=== PATIENT | male | born 1970 | race African-American/Black ===

== ENCOUNTER 2016-11-27 10:49 | Inpatient (IN) | payer OTHER ==
[2016-11-27 12:54] VITALS: BMI 31.4
--- NOTE | 2016-11-27 16:09 | HP ---
CIWA Score - CIWA Score Nausea/Vomitin-No Nausea/No Vomiting Muscle Tremors: 4-Moderate,w/Arms Extend Anxiety: 3 Agitation: 4-Moderately Restless Paroxysmal Sweats: 3 Orientation: 0-Oriented Tacttile Disturbances: 0-None Auditory Disturbances: 0-None Visual Disturbances: 0-None Headache: 0-None Present CIWA-Ar Total Score: 14 Admission ROS BHS - HPI Chief Complaint: I want to detox from alcohol. Allergies/Adverse Reactions: Allergies Allergy/AdvReac Type Severity Reaction Status Date / Time haloperidol [From Haldol] AdvReac Severe Verified 11/27/16 15:48 haloperidol lactate AdvReac Severe Verified 11/27/16 15:48 [From Haldol] History of Present Illness: pt is a 46yr old male with a history of alcohol dependence seeking detox for treatment. Exam Limitations: No Limitations - Ebola screening Have you traveled outside of the country in the last 21 days: No Have you had contact with anyone from an Ebola affected area: No Have you been sick,other than usual withdrawal symptoms: No Do you have a fever: No - Review of Systems Constitutional: Changes in sleep EENT: reports: No Symptoms Reported Respiratory: reports: No Symptoms reported Cardiac: reports: Syncope GI: reports: Diarrhea, Poor Fluid Intake, Indigestion : reports: No Symptoms Reported Musculoskeletal: reports: No Symptoms Reported Integumentary: reports: Flushing, Sweating Neuro: reports: Tingling, Tremors Endocrine: reports: Excessive Sweating, Flushing, Intolerance to Cold, Intolerance to Heat Hematology: reports: No Symptoms Reported Psychiatric: reports: Judgement Intact, Mood/Affect Appropiate, Orientated x3, Agitated, Anxious Other Systems: Reviewed and Negative Patient History - Patient Medical History Hx Anemia: No Hx Asthma: No Hx Chronic Obstructive Pulmonary Disease (COPD): No Hx Cancer: No Hx Cardiac Disorders: No Hx Congestive Heart Failure: No Hx Hypertension: No Hx Hypercholesterolemia: No Hx Pacemaker: No HX Cerebrovascular Accident: No Hx Seizures: No Hx Dementia: No Hx Diabetes: No Hx Gastrointestinal Disorders: No Hx Liver Disease: No Hx Genitourinary Disorders: No Hx Sexually Transmitted Disorders: No Hx Renal Disease (ESRD): No Hx Thyroid Disease: No Hx Human Immunodeficiency Virus (HIV): No (negative) Hx Hepatitis C: No (negative) Hx Depression: Yes Hx Suicide Attempt: Yes (Tried to cut wrist in 1994/ denies any S/H ideation today) Hx Bipolar Disorder: Yes (GEODON/WELLBUTRIM) Hx Schizophrenia: No - Patient Surgical History Past Surgical History: Yes Hx Neurologic Surgery: No Hx Cataract Extraction: No Hx Cardiac Surgery: No Hx Lung Surgery: No Hx Abdominal Surgery: Yes (UMBILICAL HERNIA REPAIR AN INFANT) Hx Appendectomy: No Hx Cholecystectomy: No Hx Genitourinary Surgery: No Hx Orthopedic Surgery: No Anesthesia Reaction: No - PPD History Previous Implant?: Yes Documented Results: Positive w/o proof Implanted On Prior [facility] Admission?: No Results: CXR COPY PPD to be Administered?: No - Reproductive History Patient is a Female of Child Bearing Age (11 -55 yrs old): No - Smoking Cessation Smoking history: Never smoked Have you smoked in the past 12 months: No Hx Chewing Tobacco Use: No Initiated information on smoking cessation: No 'Breaking Loose' booklet given: 11/27/16 - Substance & Tx. History Hx Alcohol Use: Yes Hx Substance Use: Yes Substance Use Type: Alcohol, Cocaine Hx Substance Use Treatment: Yes - Substances Abused Alcohol Route: Oral Frequency: Daily Amount used: fifth rum/ 2 40 oz beers Age of first use: 3 Date of Last Use: 11/26/16 Crack Route: Smoking Frequency: 1-3 times last 30 days Amount used: $300 Age of first use: 13 Date of Last Use: 11/26/16 Family Disease History - Family Disease History Family Disease History: Other: Mother, Sister Admission Physical Exam BHS - Vital Signs Vital Signs: Vital Signs - 24 hr 11/27/16 12:53 Temperature 96.2 F L Pulse Rate 105 H Respiratory 20 Rate Blood Pressure 123/70 - Physical General Appearance: Yes: Appropriately Dressed, Moderate Distress, Tremorous, Irritable, Sweating, Anxious HEENTM: Yes: Hearing grossly Normal, Normal Voice Respiratory: Yes: Lungs Clear, Normal Breath Sounds, No Respiratory Distress Neck: Yes: Within Normal Limits Breast: Yes: Within Normal Limits Cardiology: Yes: Regular Rhythm, Regular Rate, S1, S2 Abdominal: Yes: Normal Bowel Sounds, Non Tender, Soft Genitourinary: Yes: Within Normal Limits Back: Yes: Normal Inspection Musculoskeletal: Yes: full range of Motion, Pelvis Stable Extremities: Yes: Normal Capillary Refill, Normal Inspection, Tremors Neurological: Yes: Fully Oriented, Alert, Normal Response Integumentary: Yes: Normal Color, Diaphoresis Lymphatic: Yes: Within Normal Limits - Diagnostic (1) Alcohol dependence with uncomplicated withdrawal Current Visit: Yes Status: Chronic (2) Cannabis dependence, uncomplicated Current Visit: Yes Status: Chronic (3) Cocaine abuse Current Visit: Yes Status: Chronic (4) GERD (gastroesophageal reflux disease) Current Visit: Yes Status: Chronic Qualifiers: Esophagitis presence: without esophagitis Qualified Code(s): K21.9 - Gastro-esophageal reflux disease without esophagitis Cleared for Admission [facility] - Detox or Rehab [facility] Level of Care: Medically Managed Detox Regimen/Protocol: Librium [facility] Breath Alcohol Content Breath Alcohol Content: 0 Urine Drug Screen - Results Drug Screen Negative: No Urine Drug Screen Results: SHAYY-Cocaine
[2016-11-27] MEDS ORDERED: MENTHOL/PHENOL 1 EACH UD MM PRN (16:32)
[2016-11-27] MEDS ORDERED: diphenhydrAMINE HCL 50 MG CAPSULE PO PRN (16:32)
[2016-11-27] MEDS ORDERED: IBUPROFEN 400 MG TABLET (FP) PO PRN (16:32)
[2016-11-27] MEDS ORDERED: MAGNESIUM HYDROX 2400MG/30ML ORAL SUSPENSION 30 ML CUP PO PRN (16:32)
[2016-11-27] MEDS ORDERED: MAGNESIUM CITRATE 300 ML BOTTLE PO PRN (16:32)
[2016-11-27] MEDS ORDERED: MAG HYDROX/AL HYDROX/SIMETH 30 ML UNIT-DOSE CUP PO PRN (16:32)
[2016-11-27] MEDS ORDERED: guaiFENesin/D-METHORPHAN HB 10 ML UNIT-DOSE CUPS PO PRN (16:32)
[2016-11-27] MEDS ORDERED: chlordiazePOXIDE HCL 25 MG CAPSULE PO PRN (16:32)
[2016-11-27] MEDS ORDERED: LOPERAMIDE HCL 2 MG CAPSULE PO PRN (16:32)
[2016-11-27] MEDS ORDERED: P-EPHED 60MG/TRIPROLIDI 2.5MG TABLET PO PRN (16:32)
[2016-11-27] MEDS ORDERED: ACETAMINOPHEN 325 MG TABLET (FP) PO PRN (16:32)
[2016-11-27] MEDS ORDERED: chlordiazePOXIDE HCL 25 MG CAPSULE PO SCH (17:00)
[2016-11-27] MEDS ORDERED: chlordiazePOXIDE HCL 25 MG CAPSULE PO ONE (18:15)
[2016-11-27] MEDS: THIAMINE HCL 100 MG TABLET (FP) PO SCH (22:02)
[2016-11-27] MEDS: chlordiazePOXIDE HCL 25 MG CAPSULE PO SCH (22:03)
[2016-11-28 01:54] LABS: URINE APPEARANCE CLEAR; URINE BILIRUBIN NEGATIVE (NEGATIVE); URINE BLOOD NEGATIVE (NEGATIVE); URINE COLOR YELLOW; URINE GLUCOSE (UA) NEGATIVE (NEGATIVE); URINE KETONE TRACE (NEGATIVE); URINE LEUK ESTERASE NEGATIVE (NEGATIVE); URINE NITRITE NEGATIVE (NEGATIVE); URINE PROTEIN NEGATIVE (NEGATIVE); URINE UROBILINOGEN NEGATIVE E.U./dl (0.2-1.0)
[2016-11-28] MEDS: chlordiazePOXIDE HCL 25 MG CAPSULE PO SCH ×4 (05:54→22:15)
[2016-11-28] MEDS: PRENATAL VITAMINS W/ FOLIC ACID TABLET (FP) PO SCH (10:11)
[2016-11-28 10:45] LABS: MCH 28.1 pg (25.7-33.7); MCHC 33.7 g/dl (32.0-35.9); MEAN CELL VOLUME 83.3 fl (80-96); MEAN PLT VOLUME 8.3 fl (7.5-11.1); PLATELET COUNT 265 K/MM3 (134-434); RDW 12.5 % (11.9-15.9); WHITE BLOOD COUNT 6.8 K/mm3 (4.0-10.0)
[2016-11-28 11:23] LABS: BILIRUBIN,TOTAL 0.6 mg/dL (0.2-1.0); CALCIUM 9.2 mg/dL (8.5-10.1); COCKROFT - GAULT 76.16; CREATININE 1.5 mg/dL (0.7-1.3); TOT PROT 7.4 g/dl (6.4-8.2)
--- NOTE | 2016-11-28 12:22 | PN ---
S CIWA - CIWA Score Nausea/Vomitin Muscle Tremors: 2 Anxiety: 2 Agitation: 2 Paroxysmal Sweats: 2 Orientation: 0-Oriented Tacttile Disturbances: 1-Very Mild Itch/Numbness Auditory Disturbances: 0-None Visual Disturbances: 1-Very Mild Sensitivity Headache: 2-Mild CIWA-Ar Total Score: 14 S Progress Note (SOAP) Subjective: shakes, sewats, interrupted sleep, abdominal discomfort Objective: 11/28/16 12:21 Vital Signs - 8 hr 11/28/16 11/28/16 06:27 10:23 Temperature 97.4 F L 98.2 F Pulse Rate 96 H 107 H Respiratory 18 20 Rate Blood Pressure 120/82 124/79 Laboratory Last Values WBC 6.8 K/mm3 (4.0-10.0) 11/28/16 06:00 RBC 5.58 M/mm3 (4.00-5.60) 11/28/16 06:00 Hgb 15.7 GM/dL (11.7-16.9) 11/28/16 06:00 Hct 46.5 % (35.4-49) 11/28/16 06:00 MCV 83.3 fl (80-96) 11/28/16 06:00 MCHC 33.7 g/dl (32.0-35.9) 11/28/16 06:00 RDW 12.5 % (11.9-15.9) D 11/28/16 06:00 Plt Count 265 K/MM3 (134-434) 11/28/16 06:00 MPV 8.3 fl (7.5-11.1) 11/28/16 06:00 Sodium 139 mmol/L (136-145) 11/28/16 06:00 Potassium 4.1 mmol/L (3.5-5.1) 11/28/16 06:00 Chloride 103 mmol/L (98-107) 11/28/16 06:00 Carbon Dioxide 27 mmol/L (21-32) 11/28/16 06:00 Anion Gap 9 (8-16) 11/28/16 06:00 BUN 22 mg/dL (7-18) H D 11/28/16 06:00 Creatinine 1.5 mg/dL (0.7-1.3) H 11/28/16 06:00 Creat Clearance w eGFR 50.16 (>60) 11/28/16 06:00 Random Glucose 140 mg/dL (74-106) H D 11/28/16 06:00 Calcium 9.2 mg/dL (8.5-10.1) 11/28/16 06:00 Total Bilirubin 0.6 mg/dL (0.2-1.0) 11/28/16 06:00 AST 28 U/L (15-37) D 11/28/16 06:00 ALT 30 U/L (12-78) 11/28/16 06:00 Alkaline Phosphatase 66 U/L (45-117) 11/28/16 06:00 Total Protein 7.4 g/dl (6.4-8.2) 11/28/16 06:00 Albumin 4.0 g/dl (3.4-5.0) 11/28/16 06:00 Urine Color Yellow 11/27/16 00:35 Urine Appearance Clear 11/27/16 00:35 Urine pH 5.0 (5.0-8.0) 11/27/16 00:35 Urine Protein Negative (NEGATIVE) 11/27/16 00:35 Urine Glucose (UA) Negative (NEGATIVE) 11/27/16 00:35 Urine Ketones Trace (NEGATIVE) H 11/27/16 00:35 Urine Blood Negative (NEGATIVE) 11/27/16 00:35 Urine Nitrite Negative (NEGATIVE) 11/27/16 00:35 Urine Bilirubin Negative (NEGATIVE) 11/27/16 00:35 Urine Urobilinogen Negative E.U./dl (0.2-1.0) 11/27/16 00:35 Ur Leukocyte Esterase Negative (NEGATIVE) 11/27/16 00:35 labs noted Assessment: 11/28/16 12:21 withdrawal sx Plan: continue detox
--- NOTE | 2016-11-28 13:56 | CONSULT ---
[facility] Psychiatric Consult - Data Date of interview: 11/28/16 Admission source: [facility] Identifying data: First admission to [facility] for this 46 y/o AA male seeking detox treatment for alcohol and cocaine (crack) dependence.Patient is single without children,domiciled (lives with friends since his relocation from [place] in May 2016),unemployed and supported on [facility] benefits. Substance Abuse History: - Smoking Cessation. Smoking history: Never smoked. Have you smoked in the past 12 months: No. Hx Chewing Tobacco Use: No. Initiated information on smoking cessation: No. 'Breaking Loose' booklet given : 11/27/16. - Substance & Tx. History. Hx Alcohol Use: Yes. Hx Substance Use : Yes. Substance Use Type: Alcohol, Cocaine. Hx Substance Use Treatment: Yes. - Substances Abused. Alcohol. Route: Oral. Frequency: Daily. Amount used: fifth rum/ 2 40 oz beers. Age of first use: 3. Date of Last Use: . Crack. Route: Smoking. Frequency: 1-3 times last 30 days. Amount used : $300. Age of first use: 13. Date of Last Use: 11/26/16. Confirmed by patient. Medical History: Patient endorses good general health. Psychiatric History: Patient admits to a history of 3-5 psychiatric hospitalizations.He is known to [facility].Diagnosed with Bipolar Disoder and MDD.Mr Hollis reports that he does not have a " regular psychiatrist of psychiatric clinic in [place] ". Since his [facility] May [facility],he has utilized detox/rehab units as resources for medications and scripts at discharge.The patient is prescribed geodon 40 mg/hs + wellbutrin XL 150 mg/day + vistaril 50 mg tid prn.He has an intake appointment at [facility] on 12/03/16.Patient endorses a history of suicide attempt via wrist- cutting (1994). Physical/Sexual Abuse/Trauma History: Patient denies. Additional Comment: Urine Drug Screen Results: SHAYY-Cocaine.Noted. Mental Status Exam - Mental Status Exam Alert and Oriented to: Time, Place, Person Cognitive Function: Good Patient Appearance: Well Groomed Mood: Nervous, Withdrawn Affect: Mood Congruent Patient Behavior: Fatigued, Appropriate, Cooperative Speech Pattern: Clear Voice Loudness: Normal Thought Process: Goal Oriented Thought Disorder: Not Present Hallucinations: Denies Suicidal Ideation: Denies Homicidal Ideation: Denies Insight/Judgement: Fair Sleep: Poorly, Difficulty falling asleep Appetite: Good Muscle strength/Tone: Normal Gait/Station: Normal Psychiatric Findings - Problem List (Powers 1, 2,3) (1) Alcohol dependence with uncomplicated withdrawal Current Visit: Yes Status: Acute (2) Cocaine dependence Current Visit: Yes Status: Acute (3) Substance induced mood disorder Current Visit: Yes Status: Acute (4) Schizoaffective disorder Current Visit: Yes Status: Chronic (5) GERD (gastroesophageal reflux disease) Current Visit: Yes Status: Chronic Qualifiers: Esophagitis presence: without esophagitis Qualified Code(s): K21.9 - Gastro-esophageal reflux disease without esophagitis - Initial Treatment Plan Initial Treatment Plan: Psychoeducation.Detoxification.Medications : wellbutrin XXL 150 mg po daily + geodon 40 mg po hs.Side effects/benefits are discussed with the patient.He is in agreement with this careplan.Observation.
[2016-11-28] MEDS: ZIPRASIDONE 40 MG CAPSULE (FP) PO SCH (20:30)
[2016-11-28] MEDS: THIAMINE HCL 100 MG TABLET (FP) PO SCH (22:15)
[2016-11-28] MEDS: hydrOXYzine PAMOATE 50 MG CAPSULE (FP) PO PRN (22:18)
[2016-11-29] MEDS: chlordiazePOXIDE HCL 25 MG CAPSULE PO SCH ×3 (06:03→17:51)
[2016-11-29] MEDS: PRENATAL VITAMINS W/ FOLIC ACID TABLET (FP) PO SCH (10:11)
--- NOTE | 2016-11-29 14:59 | PN ---
S CIWA - CIWA Score Nausea/Vomitin Muscle Tremors: 4-Moderate,w/Arms Extend Anxiety: 4-Mod. Anxious/Guarded Agitation: 4-Moderately Restless Paroxysmal Sweats: No Perspiration Orientation: 0-Oriented Tacttile Disturbances: 1-Very Mild Itch/Numbness Auditory Disturbances: 0-None Visual Disturbances: 0-None Headache: 2-Mild CIWA-Ar Total Score: 18 BHS Progress Note (SOAP) Subjective: Anxious, irritable, interrupted sleep, sweating, tremor Objective: 11/29/16 14:55 Last Vital Signs Temp Pulse Resp BP Pulse Ox 98.5 F 101 H 20 112/81 11/29/16 13:47 11/29/16 13:47 11/29/16 13:47 11/29/16 13:47 Laboratory Tests 11/27/16 11/28/16 11/28/16 00:35 06:00 06:00 WBC 6.8 RBC 5.58 Hgb 15.7 Hct 46.5 MCV 83.3 MCHC 33.7 RDW 12.5 D Plt Count 265 MPV 8.3 Sodium 139 Potassium 4.1 Chloride 103 Carbon Dioxide 27 Anion Gap 9 BUN 22 H D Creatinine 1.5 H Creat Clearance w eGFR 50.16 Random Glucose 140 H D Calcium 9.2 Total Bilirubin 0.6 AST 28 D ALT 30 Alkaline Phosphatase 66 Total Protein 7.4 Albumin 4.0 Urine Color Yellow Urine Appearance Clear Urine pH 5.0 Ur Specific [place] 1.020 Urine Protein Negative Urine Glucose (UA) Negative Urine Ketones Trace H Urine Blood Negative Urine Nitrite Negative Urine Bilirubin Negative Urine Urobilinogen Negative Ur Leukocyte Esterase Negative RPR Titer 11/28/16 06:00 WBC RBC Hgb Hct MCV MCHC RDW Plt Count MPV Sodium Potassium Chloride Carbon Dioxide Anion Gap BUN Creatinine Creat Clearance w eGFR Random Glucose Calcium Total Bilirubin AST ALT Alkaline Phosphatase Total Protein Albumin Urine Color Urine Appearance Urine pH Ur Specific [place] Urine Protein Urine Glucose (UA) Urine Ketones Urine Blood Urine Nitrite Urine Bilirubin Urine Urobilinogen Ur Leukocyte Esterase RPR Titer Nonreactive Labs noted: serum creatinine 1.5, bun 22, GFR 50.16, serum glucose 140 Assessment: 11/29/16 14:57 Withdrawal symptoms Noted with Pre renal azotemia and hyperglycemia Plan: Continue detox Pre renal azotemia: encouraged to drink lots of water, repeat BMP in AM, water pitcher provided Hyperglycemia: fasting glucose in AM, send HbA1c
[2016-11-29] MEDS: ZIPRASIDONE 40 MG CAPSULE (FP) PO SCH (20:00)
[2016-11-29] MEDS: chlordiazePOXIDE 5 MG CAPSULE PO SCH (22:14)
[2016-11-29] MEDS: THIAMINE HCL 100 MG TABLET (FP) PO SCH (22:15)
[2016-11-29] MEDS: hydrOXYzine PAMOATE 50 MG CAPSULE (FP) PO PRN (22:18)
[2016-11-30] MEDS: chlordiazePOXIDE 5 MG CAPSULE PO SCH ×3 (05:18→17:23)
[2016-11-30] MEDS: PRENATAL VITAMINS W/ FOLIC ACID TABLET (FP) PO SCH (10:08)
--- NOTE | 2016-11-30 11:39 | EKG ---
Test Reason : Blood Pressure : / mmHG Vent. Rate : 087 BPM Atrial Rate : 087 BPM P-R Int : 140 ms QRS Dur : 086 ms QT Int : 388 ms P-R-T Axes : 073 077 057 degrees QTc Int : 466 ms NORMAL SINUS RHYTHM NORMAL ECG NO PREVIOUS ECGS AVAILABLE Confirmed by MARQUISE RANGEL MD ([id number]) on 11/30/2016 11:39:09 AM Referred By: Confirmed By:MARQUISE RANGEL MD
--- NOTE | 2016-11-30 14:03 | PN ---
S Progress Note (SOAP) Subjective: Interrupted sleep, anxious, sweating Objective: 11/30/16 13:59 Last Vital Signs Temp Pulse Resp BP Pulse Ox 97.2 F L 93 H 20 126/86 11/30/16 13:29 11/30/16 13:29 11/30/16 13:29 11/30/16 13:29 Laboratory Tests 11/27/16 11/28/16 11/28/16 00:35 06:00 06:00 WBC 6.8 RBC 5.58 Hgb 15.7 Hct 46.5 MCV 83.3 MCHC 33.7 RDW 12.5 D Plt Count 265 MPV 8.3 Sodium 139 Potassium 4.1 Chloride 103 Carbon Dioxide 27 Anion Gap 9 BUN 22 H D Creatinine 1.5 H Creat Clearance w eGFR 50.16 Random Glucose 140 H D Calcium 9.2 Total Bilirubin 0.6 AST 28 D ALT 30 Alkaline Phosphatase 66 Total Protein 7.4 Albumin 4.0 Urine Color Yellow Urine Appearance Clear Urine pH 5.0 Ur Specific [place] 1.020 Urine Protein Negative Urine Glucose (UA) Negative Urine Ketones Trace H Urine Blood Negative Urine Nitrite Negative Urine Bilirubin Negative Urine Urobilinogen Negative Ur Leukocyte Esterase Negative RPR Titer 11/28/16 06:00 WBC RBC Hgb Hct MCV MCHC RDW Plt Count MPV Sodium Potassium Chloride Carbon Dioxide Anion Gap BUN Creatinine Creat Clearance w eGFR Random Glucose Calcium Total Bilirubin AST ALT Alkaline Phosphatase Total Protein Albumin Urine Color Urine Appearance Urine pH Ur Specific [place] Urine Protein Urine Glucose (UA) Urine Ketones Urine Blood Urine Nitrite Urine Bilirubin Urine Urobilinogen Ur Leukocyte Esterase RPR Titer Nonreactive Labs noted Assessment: 11/30/16 14:00 Withdrawal symptoms Noted with pre renal azotemia and hyperglycemia Plan: Continue detox Prerenal azotemia: encouraged to drink lots of water, follow up on repreated BMP (result in progress) Hyperglycemia: follow up on fasting glucose and on HbA1c result
[2016-11-30 14:29] LABS: COCKROFT - GAULT 103.86; CREATININE 1.1 mg/dL (0.7-1.3)
[2016-11-30] MEDS: ZIPRASIDONE 40 MG CAPSULE (FP) PO SCH (19:42)
[2016-11-30] MEDS: chlordiazePOXIDE HCL 10 MG CAPSULE PO SCH (22:02)
[2016-11-30] MEDS: THIAMINE HCL 100 MG TABLET (FP) PO SCH (22:02)
[2016-12-01] MEDS: chlordiazePOXIDE HCL 10 MG CAPSULE PO SCH ×3 (05:28→17:24)
[2016-12-01] MEDS: PRENATAL VITAMINS W/ FOLIC ACID TABLET (FP) PO SCH (10:07)
--- NOTE | 2016-12-01 10:34 | PN ---
BHS Progress Note (SOAP) Subjective: ANXIETY, INTERMITTENT SLEEP. Objective: 12/01/16 10:33 Laboratory Last Values WBC 6.8 K/mm3 (4.0-10.0) 11/28/16 06:00 RBC 5.58 M/mm3 (4.00-5.60) 11/28/16 06:00 Hgb 15.7 GM/dL (11.7-16.9) 11/28/16 06:00 Hct 46.5 % (35.4-49) 11/28/16 06:00 MCV 83.3 fl (80-96) 11/28/16 06:00 MCHC 33.7 g/dl (32.0-35.9) 11/28/16 06:00 RDW 12.5 % (11.9-15.9) D 11/28/16 06:00 Plt Count 265 K/MM3 (134-434) 11/28/16 06:00 MPV 8.3 fl (7.5-11.1) 11/28/16 06:00 Sodium 144 mmol/L (136-145) 11/30/16 07:12 Potassium 3.9 mmol/L (3.5-5.1) 11/30/16 07:12 Chloride 107 mmol/L (98-107) 11/30/16 07:12 Carbon Dioxide 27 mmol/L (21-32) 11/30/16 07:12 Anion Gap 10 (8-16) 11/30/16 07:12 BUN 12 mg/dL (7-18) D 11/30/16 07:12 Creatinine 1.1 mg/dL (0.7-1.3) D 11/30/16 07:12 Creat Clearance w eGFR 50.16 (>60) 11/28/16 06:00 Random Glucose 100 mg/dL (74-106) D 11/30/16 07:12 Hemoglobin A1c % 5.3 % (4.8-6.0) 11/30/16 07:12 Calcium 9.0 mg/dL (8.5-10.1) 11/30/16 07:12 Total Bilirubin 0.6 mg/dL (0.2-1.0) 11/28/16 06:00 AST 28 U/L (15-37) D 11/28/16 06:00 ALT 30 U/L (12-78) 11/28/16 06:00 Alkaline Phosphatase 66 U/L (45-117) 11/28/16 06:00 Total Protein 7.4 g/dl (6.4-8.2) 11/28/16 06:00 Albumin 4.0 g/dl (3.4-5.0) 11/28/16 06:00 Urine Color Yellow 11/27/16 00:35 Urine Appearance Clear 11/27/16 00:35 Urine pH 5.0 (5.0-8.0) 11/27/16 00:35 Ur Specific [place] 1.020 (1.005-1.025) 11/27/16 00:35 Urine Protein Negative (NEGATIVE) 11/27/16 00:35 Urine Glucose (UA) Negative (NEGATIVE) 11/27/16 00:35 Urine Ketones Trace (NEGATIVE) H 11/27/16 00:35 Urine Blood Negative (NEGATIVE) 11/27/16 00:35 Urine Nitrite Negative (NEGATIVE) 11/27/16 00:35 Urine Bilirubin Negative (NEGATIVE) 11/27/16 00:35 Urine Urobilinogen Negative E.U./dl (0.2-1.0) 11/27/16 00:35 Ur Leukocyte Esterase Negative (NEGATIVE) 11/27/16 00:35 RPR Titer Nonreactive (NONREACTIVE) 11/28/16 06:00 Assessment: 12/01/16 10:34 WITHDRAWAL SX Plan: CONTINUE DETOX
[2016-12-01] MEDS: ZIPRASIDONE 40 MG CAPSULE (FP) PO SCH (20:30)
[2016-12-01] MEDS: THIAMINE HCL 100 MG TABLET (FP) PO SCH (21:46)
[2016-12-02 06:39] VITALS: BP 112/87; PULSE 82; TEMP 97.5
--- NOTE | 2016-12-02 09:15 | DS ---
[facility] Detox Discharge Summary Admission Date: 11/27/16 Discharge Date: 12/02/16 - History Present History: Alcohol Dependence, Cocaine Dependence Additional Comments: PT DISCHARGED EARLIER TODAY. DETOX COMPLETED. Pertinent Past History: GERD S/PUMBILICAL HERNIA REPAIR DEPRESSION - Physical Exam Results Vital Signs: Vital Signs Temperature 97.5 F L 12/02/16 06:39 Pulse Rate 82 12/02/16 06:39 Respiratory Rate 18 12/02/16 06:39 Blood Pressure 112/87 12/02/16 06:39 O2 Sat by Pulse Oximetry (%) Pertinent Admission Physical Exam Findings: WITHDRAWAL SX - Treatment Hospital Course: Detox Protocol Followed, Detoxed Safely, Responded well, Discharged Condition Good - Medication Discharge Medications: Ambulatory Orders Hydroxyzine Pamoate [Vistaril -] 50 mg PO TID PRN 05/14/16 Bupropion HCl [Wellbutrin Xl -] 150 mg PO DAILY #30 tab.sr.24h 06/11/16 Ziprasidone [Geodon] 40 mg PO HS 11/27/16 Bupropion HCl [Wellbutrin Xl -] 150 mg PO DAILY #30 tab.sr.24h 11/28/16 Ziprasidone [Geodon] 40 mg PO HS #30 capsule 11/28/16 - Diagnosis (1) Alcohol dependence with uncomplicated withdrawal Status: Acute (2) GERD (gastroesophageal reflux disease) Status: Chronic Qualifiers: Esophagitis presence: without esophagitis Qualified Code(s): K21.9 - Gastro-esophageal reflux disease without esophagitis (3) Cocaine dependence Status: Acute Qualifiers: Substance use status: uncomplicated Qualified Code(s): F14.20 - Cocaine dependence, uncomplicated (4) Substance induced mood disorder Status: Acute (5) Schizoaffective disorder Status: Chronic - AMA Did Patient Leave Against Medical Advice: No
== END 2016-12-02 09:34 | disposition home or self-care (01) | DRG 897 ==
LOC: YASAS 10:49 → Y3N 17:12
PROVIDERS: ADMIT Internal Medicine; ATTEND Internal Medicine
PROC: HZ2ZZZZ Detoxification Services for Substance Abuse Treatment (ICD-10-PCS; principal; 2016-12-02)
DX: F19.230 Other psychoactive substance dependence with withdrawal, uncomplicated (principal); F14.20 Cocaine dependence, uncomplicated; F19.20 Other psychoactive substance dependence, uncomplicated; F10.230 Alcohol dependence with withdrawal, uncomplicated; F32.9 Major depressive disorder, single episode, unspecified; F25.9 Schizoaffective disorder, unspecified; K21.9 Gastro-esophageal reflux disease without esophagitis
CPT/HCPCS: 36415; 80048; 80053; 81003; 83036; 85027; 86593; 93005; 93010

== ENCOUNTER 2017-10-01 12:08 | Inpatient (IN) | payer OTHER ==
[2017-10-01 12:23] VITALS: BMI 29.8
--- NOTE | 2017-10-01 17:34 | HP ---
Admission [facility] Chief Complaint: I am here for rehab for alcohol and marijuana Allergies/Adverse Reactions: Allergies Allergy/AdvReac Type Severity Reaction Status Date / Time haloperidol [From Haldol] AdvReac Severe Verified 10/01/17 17:43 haloperidol lactate AdvReac Severe stiffness Verified 10/01/17 17:42 [From Haldol] History of Present Illness: Patient is a 47 yo male with hx of alcohol, and THC dependence is here seeking detox. PMHX: Bipolar, anxiety d/o, PTSD. [facility] completed detox today. Longest period of sobriety three years. Denies suicidal / homicidal ideation, reports last attempted suicide by swallowing pills in 1995. - Ebola screening Have you been sick,other than usual withdrawal symptoms: No Do you have a fever: No - Review of Systems Constitutional: No Symptoms Reported EENT: reports: No Symptoms Reported Respiratory: reports: No Symptoms reported Cardiac: reports: No Symptoms Reported GI: reports: No Symptoms Reported : reports: No Symptoms Reported Musculoskeletal: reports: No Symptoms Reported Integumentary: reports: No Symptoms Reported Neuro: reports: No Symptoms reported Endocrine: reports: No Symptoms Reported Hematology: reports: No Symptoms Reported Psychiatric: reports: Mood/Affect Appropiate, Orientated x3 Other Systems: Reviewed and Negative Patient History - Patient Medical History Hx Anemia: No Hx Asthma: No Hx Chronic Obstructive Pulmonary Disease (COPD): No Hx Cancer: No Hx Cardiac Disorders: No Hx Congestive Heart Failure: No Hx Hypertension: No Hx Hypercholesterolemia: No Hx Pacemaker: No HX Cerebrovascular Accident: No Hx Seizures: No Hx Dementia: No Hx Diabetes: No Hx Gastrointestinal Disorders: No Hx Liver Disease: No Hx Genitourinary Disorders: No Hx Sexually Transmitted Disorders: Yes (Syphillis, Gonorrhea ) Hx Renal Disease (ESRD): No Hx Thyroid Disease: No Hx Human Immunodeficiency Virus (HIV): No (negative, November 2016) Hx Hepatitis C: No (negative) Hx Depression: Yes Hx Suicide Attempt: Yes (Tried to cut wrist in 1994/ denies any S/H ideation today) Hx Bipolar Disorder: Yes (GEODON/WELLBUTRIM) Hx Schizophrenia: No - Patient Surgical History Past Surgical History: Yes Hx Neurologic Surgery: No Hx Cataract Extraction: No Hx Cardiac Surgery: No Hx Lung Surgery: No Hx Abdominal Surgery: Yes (UMBILICAL HERNIA REPAIR AN INFANT) Hx Appendectomy: No Hx Cholecystectomy: No Hx Genitourinary Surgery: No Hx Orthopedic Surgery: No Anesthesia Reaction: No - PPD History Results: CXR COPY PPD to be Administered?: No - Reproductive History Patient is a Female of Child Bearing Age (11 -55 yrs old): No - Smoking Cessation Smoking history: Never smoked Have you smoked in the past 12 months: No Aproximately how many cigarettes per day: 0 Hx Chewing Tobacco Use: No Initiated information on smoking cessation: No - Substance & Tx. History Hx Alcohol Use: Yes Hx Substance Use: Yes Substance Use Type: Alcohol, Marijuana Hx Substance Use Treatment: Yes ([facility] discharge 10/01/17) - Substances Abused Alcohol Route: Oral Frequency: Daily Amount used: 2 pints of Vodka Age of first use: 3 Date of Last Use: 09/16/17 Marijuana/Hashish Route: Smoking Frequency: 3-6 times per week Amount used: $3 / day Age of first use: 8 Date of Last Use: 09/16/17 Alcohol-vodka Route: Oral Frequency: Daily Amount used: 2 pts. Age of first use: 3 Date of Last Use: 09/16/17 Marijuana Route: Smoking Frequency: Daily Amount used: $3 Age of first use: 8 Date of Last Use: 09/16/17 Family Disease History - Family Disease History Family Disease History: Other: Mother, Sister Admission Physical Exam [facility] - Vital Signs Vital Signs: Vital Signs - 24 hr 10/01/17 12:21 Temperature 97.1 F L Pulse Rate 76 Respiratory 20 Rate Blood Pressure 121/72 - Physical General Appearance: Yes: No Apparent Distress, Nourished, Appropriately Dressed HEENTM: Yes: EOMI, Hearing grossly Normal, Normal ENT Inspection, Normocephalic , Normal Voice, ANABELL, Pharynx Normal, Tm's normal Respiratory: Yes: Lungs Clear, Normal Breath Sounds, No Respiratory Distress, No Accessory Muscle Use Neck: Yes: No masses,lesions,Nodules, Trachea in good position Breast: Yes: Breast Exam Deferred Cardiology: Yes: Regular Rhythm, Regular Rate Abdominal: Yes: Normal Bowel Sounds, Non Tender, Flat, Soft Genitourinary: Yes: Within Normal Limits Back: Yes: Normal Inspection Musculoskeletal: Yes: full range of Motion, Gait Steady, Pelvis Stable Extremities: Yes: Normal Capillary Refill, Normal Inspection, Normal Range of Motion, Non-Tender Neurological: Yes: data control clerk II-XII NML intact, Fully Oriented, Alert, Motor Strength 5/5, Depressed Affect Integumentary: Yes: Normal Color, Dry, Warm Lymphatic: Yes: Within Normal Limits - Diagnostic (1) Cannabis dependence, uncomplicated Current Visit: Yes Status: Acute (2) Bipolar 1 disorder, depressed Current Visit: Yes Status: Suspected (3) GERD (gastroesophageal reflux disease) Current Visit: Yes Status: Chronic Qualifiers: Esophagitis presence: without esophagitis Qualified Code(s): K21.9 - Gastro -esophageal reflux disease without esophagitis [facility] Breath Alcohol Content Breath Alcohol Content: 0 Urine Drug Screen - Results Drug Screen Negative: No Urine Drug Screen Results: THC-Marijuana, BZO-Benzodiazepines, TCA-Tricyclic Antidepress Inpatient Rehab Admission - Initial Determination Are CD services needed?: Yes Free of communicable disease: Yes Not in need of hospitalization: Yes - Rehab Admission Criteria Previous failed treatment: Yes Poor recovery environment: Yes Comorbidities: Yes Lacks judgement: Yes Patient is meeting Inpatient Rehab admission criteria:: Yes
[2017-10-01] MEDS ORDERED: ACETAMINOPHEN 325 MG TABLET (FP) PO PRN (17:46)
[2017-10-01] MEDS ORDERED: P-EPHED 60MG/TRIPROLIDI 2.5MG TABLET PO PRN (17:46)
[2017-10-01] MEDS ORDERED: MAGNESIUM CITRATE 300 ML BOTTLE PO PRN (17:46)
[2017-10-01] MEDS ORDERED: MAGNESIUM HYDROX 2400MG/30ML ORAL SUSPENSION 30 ML CUP PO PRN (17:46)
[2017-10-01] MEDS ORDERED: MENTHOL/PHENOL 1 EACH UD MM PRN (17:46)
[2017-10-01] MEDS ORDERED: IBUPROFEN 400 MG TABLET (FP) PO PRN (17:46)
[2017-10-01] MEDS ORDERED: MAG HYDROX/AL HYDROX/SIMETH 30 ML UNIT-DOSE CUP PO PRN (17:46)
[2017-10-01] MEDS ORDERED: LOPERAMIDE HCL 2 MG CAPSULE PO PRN (17:46)
[2017-10-01] MEDS: THIAMINE HCL 100 MG TABLET (FP) PO SCH (21:58)
[2017-10-01] MEDS: hydrOXYzine PAMOATE 50 MG CAPSULE (FP) PO PRN (21:58)
[2017-10-01] MEDS ORDERED: MELATONIN 5 MG TABLETS PO PRN (22:00)
[2017-10-02 03:36] LABS: URINE APPEARANCE CLEAR; URINE BILIRUBIN NEGATIVE (<2.0 mg/dL); URINE COLOR YELLOW; URINE GLUCOSE (UA) NEGATIVE (NEGATIVE); URINE KETONE NEGATIVE (NEGATIVE); URINE LEUK ESTERASE NEGATIVE (NEGATIVE); URINE NITRITE NEGATIVE (NEGATIVE); URINE PROTEIN NEGATIVE (NEGATIVE); URINE UROBILINOGEN NEGATIVE mg/dL (0.2-1.0)
[2017-10-02] MEDS: PRENATAL VITAMINS W/ FOLIC ACID TABLET (FP) PO SCH (09:55)
[2017-10-02 11:24] LABS: HEMATOCRIT 44.6 % (35.4-49); HEMOGLOBIN 15.4 GM/dL (11.7-16.9); MCH 29.6 pg (25.7-33.7); MCHC 34.6 g/dl (32.0-35.9); MEAN CELL VOLUME 85.6 fl (80-96); MEAN PLT VOLUME 7.6 fl (7.5-11.1); PLATELET COUNT 299 K/MM3 (134-434); RBC 5.21 M/mm3 (4.00-5.60); RDW 12.8 % (11.9-15.9); WHITE BLOOD COUNT 5.4 K/mm3 (4.0-10.0)
[2017-10-02 11:35] LABS: CHLORIDE 114 mmol/L (98-107); POTASSIUM 4.2 mmol/L (3.5-5.1); SODIUM 134 mmol/L (136-145)
[2017-10-02 11:45] LABS: ALBUMIN 3.5 g/dl (3.4-5.0); ALK PHOS 49 U/L (45-117); ANION GAP -10 (8-16); BILIRUBIN,TOTAL 0.3 mg/dL (0.2-1.0); BLOOD UREA NITROGEN 12 mg/dL (7-18); CALCIUM 8.7 mg/dL (8.5-10.1); CO2 30 mmol/L (21-32); CREATININE 1.2 mg/dL (0.7-1.3); GLUCOSE,RANDOM 76 mg/dL (74-106); SGOT/AST 18 U/L (15-37); SGPT/ALT 36 U/L (12-78); TOT PROT 6.5 g/dl (6.4-8.2)
[2017-10-02] MEDS ORDERED: PT OWN MED DRAWER 7, Y5N ONE ×2 (18:34→20:43)
--- NOTE | 2017-10-02 18:49 | PN ---
[facility] Progress Note Note: Psychiatry
[2017-10-02] MEDS: THIAMINE HCL 100 MG TABLET (FP) PO SCH (21:33)
[2017-10-02] MEDS: hydrOXYzine PAMOATE 50 MG CAPSULE (FP) PO PRN (21:33)
[2017-10-02] MEDS: traZODone HCL 100 MG TABLET (FP) PO SCH (21:33)
[2017-10-02] MEDS: ZIPRASIDONE 40 MG CAPSULE (FP) PO SCH (21:33)
--- NOTE | 2017-10-03 09:12 | PN ---
[facility] Progress Note Note: allow patient to have a pitcher of water at bed siide for hydration and encourage oral fluid
[2017-10-03] MEDS: PRENATAL VITAMINS W/ FOLIC ACID TABLET (FP) PO SCH (10:04)
--- NOTE | 2017-10-03 16:32 | EKG ---
Test Reason : Blood Pressure : / mmHG Vent. Rate : 064 BPM Atrial Rate : 064 BPM P-R Int : 170 ms QRS Dur : 094 ms QT Int : 416 ms P-R-T Axes : 071 071 065 degrees QTc Int : 429 ms NORMAL SINUS RHYTHM NORMAL ECG WHEN COMPARED WITH ECG OF 27-NOV-2016 17:17, NO SIGNIFICANT CHANGE WAS FOUND Confirmed by MD MAYNARD MOYSES ([id number]) on 10/03/2017 4:31:57 PM Referred By: Confirmed By:ADAM MAYNARD MD
[2017-10-03] MEDS: traZODone HCL 100 MG TABLET (FP) PO SCH (21:31)
[2017-10-03] MEDS: THIAMINE HCL 100 MG TABLET (FP) PO SCH (21:31)
[2017-10-03] MEDS: ZIPRASIDONE 40 MG CAPSULE (FP) PO SCH (21:31)
[2017-10-03] MEDS: hydrOXYzine PAMOATE 50 MG CAPSULE (FP) PO PRN (21:32)
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
[2017-10-04] MEDS: PRENATAL VITAMINS W/ FOLIC ACID TABLET (FP) PO SCH (10:15)
[2017-10-04] MEDS: hydrOXYzine PAMOATE 50 MG CAPSULE (FP) PO PRN ×2 (10:41→21:25)
[2017-10-04] MEDS: ZIPRASIDONE 40 MG CAPSULE (FP) PO SCH (17:00)
[2017-10-04] MEDS: traZODone HCL 100 MG TABLET (FP) PO SCH (21:25)
[2017-10-04] MEDS: THIAMINE HCL 100 MG TABLET (FP) PO SCH (21:26)
[2017-10-05] MEDS: PRENATAL VITAMINS W/ FOLIC ACID TABLET (FP) PO SCH (10:04)
[2017-10-05] MEDS: ZIPRASIDONE 40 MG CAPSULE (FP) PO SCH (18:09)
[2017-10-05] MEDS: traZODone HCL 100 MG TABLET (FP) PO SCH (22:09)
[2017-10-05] MEDS: THIAMINE HCL 100 MG TABLET (FP) PO SCH (22:09)
[2017-10-05] MEDS: hydrOXYzine PAMOATE 50 MG CAPSULE (FP) PO PRN (22:10)
[2017-10-06] MEDS: PRENATAL VITAMINS W/ FOLIC ACID TABLET (FP) PO SCH (10:12)
[2017-10-06] MEDS: hydrOXYzine PAMOATE 50 MG CAPSULE (FP) PO PRN ×2 (10:13→21:29)
[2017-10-06] MEDS: ZIPRASIDONE 40 MG CAPSULE (FP) PO SCH (17:33)
[2017-10-06] MEDS: THIAMINE HCL 100 MG TABLET (FP) PO SCH (21:29)
[2017-10-06] MEDS: traZODone HCL 100 MG TABLET (FP) PO SCH (21:29)
[2017-10-07] MEDS: hydrOXYzine PAMOATE 50 MG CAPSULE (FP) PO PRN ×2 (10:12→21:44)
[2017-10-07] MEDS: PRENATAL VITAMINS W/ FOLIC ACID TABLET (FP) PO SCH (10:12)
[2017-10-07] MEDS: ZIPRASIDONE 40 MG CAPSULE (FP) PO SCH (16:55)
[2017-10-07] MEDS: THIAMINE HCL 100 MG TABLET (FP) PO SCH (21:43)
[2017-10-07] MEDS: traZODone HCL 100 MG TABLET (FP) PO SCH (21:43)
[2017-10-08] MEDS: hydrOXYzine PAMOATE 50 MG CAPSULE (FP) PO PRN ×2 (10:11→21:33)
[2017-10-08] MEDS: PRENATAL VITAMINS W/ FOLIC ACID TABLET (FP) PO SCH (10:11)
[2017-10-08] MEDS: ZIPRASIDONE 40 MG CAPSULE (FP) PO SCH (21:32)
[2017-10-08] MEDS: traZODone HCL 100 MG TABLET (FP) PO SCH (21:33)
[2017-10-08] MEDS: THIAMINE HCL 100 MG TABLET (FP) PO SCH (22:35)
[2017-10-09] MEDS: PRENATAL VITAMINS W/ FOLIC ACID TABLET (FP) PO SCH (09:50)
[2017-10-09] MEDS: hydrOXYzine PAMOATE 50 MG CAPSULE (FP) PO PRN ×2 (09:51→21:44)
[2017-10-09] MEDS: ZIPRASIDONE 40 MG CAPSULE (FP) PO SCH (21:43)
[2017-10-09] MEDS: traZODone HCL 100 MG TABLET (FP) PO SCH (21:43)
[2017-10-09] MEDS: THIAMINE HCL 100 MG TABLET (FP) PO SCH (21:43)
[2017-10-10] MEDS: PRENATAL VITAMINS W/ FOLIC ACID TABLET (FP) PO SCH (10:05)
[2017-10-10] MEDS: hydrOXYzine PAMOATE 50 MG CAPSULE (FP) PO PRN ×2 (10:06→21:48)
[2017-10-10] MEDS: ZIPRASIDONE 40 MG CAPSULE (FP) PO SCH (21:48)
[2017-10-10] MEDS: traZODone HCL 100 MG TABLET (FP) PO SCH (21:48)
[2017-10-10] MEDS: THIAMINE HCL 100 MG TABLET (FP) PO SCH (21:48)
[2017-10-11] MEDS: PRENATAL VITAMINS W/ FOLIC ACID TABLET (FP) PO SCH (10:19)
[2017-10-11] MEDS: hydrOXYzine PAMOATE 50 MG CAPSULE (FP) PO PRN ×2 (10:19→21:34)
[2017-10-11] MEDS: ZIPRASIDONE 40 MG CAPSULE (FP) PO SCH (21:34)
[2017-10-11] MEDS: traZODone HCL 100 MG TABLET (FP) PO SCH (21:34)
[2017-10-11] MEDS: THIAMINE HCL 100 MG TABLET (FP) PO SCH (21:34)
[2017-10-12] MEDS: PRENATAL VITAMINS W/ FOLIC ACID TABLET (FP) PO SCH (10:06)
[2017-10-12] MEDS: hydrOXYzine PAMOATE 50 MG CAPSULE (FP) PO PRN ×2 (10:07→21:33)
[2017-10-12] MEDS: traZODone HCL 100 MG TABLET (FP) PO SCH (21:33)
[2017-10-12] MEDS: ZIPRASIDONE 40 MG CAPSULE (FP) PO SCH (21:33)
[2017-10-12] MEDS: THIAMINE HCL 100 MG TABLET (FP) PO SCH (21:33)
[2017-10-13] MEDS: PRENATAL VITAMINS W/ FOLIC ACID TABLET (FP) PO SCH (10:19)
[2017-10-13] MEDS: hydrOXYzine PAMOATE 50 MG CAPSULE (FP) PO PRN ×2 (10:20→21:35)
[2017-10-13] MEDS: THIAMINE HCL 100 MG TABLET (FP) PO SCH (21:35)
[2017-10-13] MEDS: traZODone HCL 100 MG TABLET (FP) PO SCH (21:35)
[2017-10-13] MEDS: ZIPRASIDONE 40 MG CAPSULE (FP) PO SCH (21:35)
[2017-10-14] MEDS: PRENATAL VITAMINS W/ FOLIC ACID TABLET (FP) PO SCH (10:10)
[2017-10-14] MEDS: hydrOXYzine PAMOATE 50 MG CAPSULE (FP) PO PRN ×2 (10:11→21:50)
[2017-10-14] MEDS: ZIPRASIDONE 40 MG CAPSULE (FP) PO SCH (21:49)
[2017-10-14] MEDS: THIAMINE HCL 100 MG TABLET (FP) PO SCH (21:49)
[2017-10-14] MEDS: traZODone HCL 100 MG TABLET (FP) PO SCH (21:49)
[2017-10-15] MEDS: PRENATAL VITAMINS W/ FOLIC ACID TABLET (FP) PO SCH (10:13)
[2017-10-15] MEDS: hydrOXYzine PAMOATE 50 MG CAPSULE (FP) PO PRN ×2 (10:13→21:26)
[2017-10-15] MEDS: ZIPRASIDONE 40 MG CAPSULE (FP) PO SCH (21:26)
[2017-10-15] MEDS: traZODone HCL 100 MG TABLET (FP) PO SCH (21:26)
[2017-10-15] MEDS: THIAMINE HCL 100 MG TABLET (FP) PO SCH (21:26)
[2017-10-16] MEDS: PRENATAL VITAMINS W/ FOLIC ACID TABLET (FP) PO SCH (09:59)
[2017-10-16] MEDS: hydrOXYzine PAMOATE 50 MG CAPSULE (FP) PO PRN ×2 (09:59→21:35)
[2017-10-16] MEDS: THIAMINE HCL 100 MG TABLET (FP) PO SCH (21:35)
[2017-10-16] MEDS: ZIPRASIDONE 40 MG CAPSULE (FP) PO SCH (21:35)
[2017-10-16] MEDS: traZODone HCL 100 MG TABLET (FP) PO SCH (21:35)
[2017-10-17] MEDS: hydrOXYzine PAMOATE 50 MG CAPSULE (FP) PO PRN ×2 (09:52→21:29)
[2017-10-17] MEDS: PRENATAL VITAMINS W/ FOLIC ACID TABLET (FP) PO SCH (09:52)
[2017-10-17] MEDS: guaiFENesin/D-METHORPHAN HB 10 ML UNIT-DOSE CUPS PO PRN ×2 (10:25→21:29)
[2017-10-17] MEDS: ZIPRASIDONE 40 MG CAPSULE (FP) PO SCH (21:29)
[2017-10-17] MEDS: THIAMINE HCL 100 MG TABLET (FP) PO SCH (21:29)
[2017-10-17] MEDS: traZODone HCL 100 MG TABLET (FP) PO SCH (21:29)
[2017-10-18] MEDS: PRENATAL VITAMINS W/ FOLIC ACID TABLET (FP) PO SCH (09:50)
[2017-10-18] MEDS: hydrOXYzine PAMOATE 50 MG CAPSULE (FP) PO PRN ×2 (09:50→21:25)
[2017-10-18] MEDS: guaiFENesin/D-METHORPHAN HB 10 ML UNIT-DOSE CUPS PO PRN ×2 (14:14→21:26)
[2017-10-18] MEDS: THIAMINE HCL 100 MG TABLET (FP) PO SCH (21:25)
[2017-10-18] MEDS: traZODone HCL 100 MG TABLET (FP) PO SCH (21:25)
[2017-10-18] MEDS: ZIPRASIDONE 40 MG CAPSULE (FP) PO SCH (21:25)
[2017-10-19] MEDS: PRENATAL VITAMINS W/ FOLIC ACID TABLET (FP) PO SCH (10:02)
[2017-10-19] MEDS: hydrOXYzine PAMOATE 50 MG CAPSULE (FP) PO PRN ×2 (10:03→21:34)
[2017-10-19] MEDS: guaiFENesin/D-METHORPHAN HB 10 ML UNIT-DOSE CUPS PO PRN ×2 (15:03→21:35)
[2017-10-19] MEDS: ZIPRASIDONE 40 MG CAPSULE (FP) PO SCH (21:34)
[2017-10-19] MEDS: traZODone HCL 100 MG TABLET (FP) PO SCH (21:35)
[2017-10-19] MEDS: THIAMINE HCL 100 MG TABLET (FP) PO SCH (22:32)
[2017-10-20] MEDS: hydrOXYzine PAMOATE 50 MG CAPSULE (FP) PO PRN ×2 (10:15→21:27)
[2017-10-20] MEDS: PRENATAL VITAMINS W/ FOLIC ACID TABLET (FP) PO SCH (10:15)
[2017-10-20] MEDS: guaiFENesin/D-METHORPHAN HB 10 ML UNIT-DOSE CUPS PO PRN ×2 (10:16→21:28)
[2017-10-20] MEDS: traZODone HCL 100 MG TABLET (FP) PO SCH (21:27)
[2017-10-20] MEDS: ZIPRASIDONE 40 MG CAPSULE (FP) PO SCH (21:27)
[2017-10-20] MEDS: THIAMINE HCL 100 MG TABLET (FP) PO SCH (21:27)
[2017-10-21] MEDS: hydrOXYzine PAMOATE 50 MG CAPSULE (FP) PO PRN ×2 (10:06→21:47)
[2017-10-21] MEDS: PRENATAL VITAMINS W/ FOLIC ACID TABLET (FP) PO SCH (10:06)
[2017-10-21] MEDS: guaiFENesin/D-METHORPHAN HB 10 ML UNIT-DOSE CUPS PO PRN ×2 (16:10→21:48)
[2017-10-21] MEDS: THIAMINE HCL 100 MG TABLET (FP) PO SCH (21:47)
[2017-10-21] MEDS: traZODone HCL 100 MG TABLET (FP) PO SCH (21:48)
[2017-10-21] MEDS: ZIPRASIDONE 40 MG CAPSULE (FP) PO SCH (21:48)
[2017-10-22] MEDS: hydrOXYzine PAMOATE 50 MG CAPSULE (FP) PO PRN ×2 (10:13→21:33)
[2017-10-22] MEDS: guaiFENesin/D-METHORPHAN HB 10 ML UNIT-DOSE CUPS PO PRN ×3 (10:13→21:34)
[2017-10-22] MEDS: PRENATAL VITAMINS W/ FOLIC ACID TABLET (FP) PO SCH (10:13)
[2017-10-22] MEDS: THIAMINE HCL 100 MG TABLET (FP) PO SCH (21:33)
[2017-10-22] MEDS: traZODone HCL 100 MG TABLET (FP) PO SCH (21:33)
[2017-10-22] MEDS: ZIPRASIDONE 40 MG CAPSULE (FP) PO SCH (21:33)
[2017-10-23] MEDS: hydrOXYzine PAMOATE 50 MG CAPSULE (FP) PO PRN ×2 (09:35→21:43)
[2017-10-23] MEDS: PRENATAL VITAMINS W/ FOLIC ACID TABLET (FP) PO SCH (09:36)
[2017-10-23] MEDS: guaiFENesin/D-METHORPHAN HB 10 ML UNIT-DOSE CUPS PO PRN ×3 (09:36→21:43)
[2017-10-23] MEDS: THIAMINE HCL 100 MG TABLET (FP) PO SCH (21:42)
[2017-10-23] MEDS: ZIPRASIDONE 40 MG CAPSULE (FP) PO SCH (21:42)
[2017-10-23] MEDS: traZODone HCL 100 MG TABLET (FP) PO SCH (21:42)
[2017-10-24] MEDS: PRENATAL VITAMINS W/ FOLIC ACID TABLET (FP) PO SCH (10:07)
[2017-10-24] MEDS: guaiFENesin/D-METHORPHAN HB 10 ML UNIT-DOSE CUPS PO PRN ×2 (10:08→21:24)
[2017-10-24] MEDS: hydrOXYzine PAMOATE 50 MG CAPSULE (FP) PO PRN ×2 (10:08→21:23)
[2017-10-24] MEDS: THIAMINE HCL 100 MG TABLET (FP) PO SCH (21:23)
[2017-10-24] MEDS: traZODone HCL 100 MG TABLET (FP) PO SCH (21:24)
[2017-10-24] MEDS: ZIPRASIDONE 40 MG CAPSULE (FP) PO SCH (21:24)
[2017-10-25] MEDS: PRENATAL VITAMINS W/ FOLIC ACID TABLET (FP) PO SCH (10:08)
[2017-10-25] MEDS: hydrOXYzine PAMOATE 50 MG CAPSULE (FP) PO PRN ×2 (10:08→21:28)
[2017-10-25] MEDS: traZODone HCL 100 MG TABLET (FP) PO SCH (21:28)
[2017-10-25] MEDS: THIAMINE HCL 100 MG TABLET (FP) PO SCH (21:28)
[2017-10-25] MEDS: ZIPRASIDONE 40 MG CAPSULE (FP) PO SCH (21:29)
[2017-10-26] MEDS: PRENATAL VITAMINS W/ FOLIC ACID TABLET (FP) PO SCH (10:12)
[2017-10-26] MEDS: hydrOXYzine PAMOATE 50 MG CAPSULE (FP) PO PRN ×2 (10:13→21:33)
[2017-10-26] MEDS: THIAMINE HCL 100 MG TABLET (FP) PO SCH (21:33)
[2017-10-26] MEDS: traZODone HCL 100 MG TABLET (FP) PO SCH (21:33)
[2017-10-26] MEDS: ZIPRASIDONE 40 MG CAPSULE (FP) PO SCH (21:33)
[2017-10-27] MEDS: PRENATAL VITAMINS W/ FOLIC ACID TABLET (FP) PO SCH (10:00)
[2017-10-27] MEDS: hydrOXYzine PAMOATE 50 MG CAPSULE (FP) PO PRN ×3 (10:00→21:32)
[2017-10-27] MEDS: traZODone HCL 100 MG TABLET (FP) PO SCH (21:32)
[2017-10-27] MEDS: THIAMINE HCL 100 MG TABLET (FP) PO SCH (21:32)
[2017-10-27] MEDS: ZIPRASIDONE 40 MG CAPSULE (FP) PO SCH (21:33)
[2017-10-28] MEDS: PRENATAL VITAMINS W/ FOLIC ACID TABLET (FP) PO SCH (09:57)
[2017-10-28] MEDS: hydrOXYzine PAMOATE 50 MG CAPSULE (FP) PO PRN ×2 (09:58→21:30)
--- NOTE | 2017-10-28 10:41 | PN ---
Psychiatric Progress Note Vital Signs: Vital Signs Period Temp Pulse Resp BP Sys/Hernandez Pulse Ox Last 24 Hr 97.9 F 66 18-18 110/72 Date of Session: 10/28/17 Chief Complaint:: Discharge Note HPI: Patient addressing Alcohol and Cannabis Dependence comorbid with Bipolar Disorder and Substance-Induced Sleep Disorder ROS: GERD Current Medications: Active Medications Generic Name Dose Route Start Last Admin Trade Name Freq PRN Reason Stop Dose Admin Acetaminophen 650 mg 10/01/17 17:46 Tylenol - PO Q4H PRN FEVER Al Hydroxide/Mg Hydroxide 30 ml 10/01/17 17:46 Mylanta Oral Suspension - PO Q6H PRN DYSPEPSIA Bupropion HCl 300 mg 10/20/17 10:00 10/28/17 09:57 Wellbutrin Xl - PO 300 mg DAILY ELINA Administration Eucalyptus/Menthol/Phenol/Sorbitol 1 each 10/01/17 17:46 Cepastat Lozenge - MM Q4H PRN SORE THROAT Guaifenesin 10 ml 10/01/17 17:46 10/24/17 21:24 Robitussin Dm - PO 10 ml Q6H PRN Administration COUGH Hydroxyzine Pamoate 50 mg 10/01/17 17:46 10/28/17 09:58 Vistaril - PO 50 mg Q4H PRN Administration AGITATION Ibuprofen 400 mg 10/01/17 17:46 Motrin - PO Q6H PRN Pain level 4-6 Loperamide HCl 4 mg 10/01/17 17:46 Imodium - PO Q6H PRN DIARRHEA Magnesium Citrate 300 ml 10/01/17 17:46 Citroma - PO Q48H PRN CONSTIPATION Magnesium Hydroxide 30 ml 10/01/17 17:46 Milk Of Magnesia - PO DAILY PRN CONSTIPATION Melatonin 5 mg 10/01/17 22:00 Melatonin PO HS PRN INSOMNIA Multivit/Folic Acid/Iron 1 tab 10/02/17 10:00 10/28/17 09:57 Vitamins (Sjr) - PO 1 tab DAILY ELINA Administration Pseudoephedrine/Triprolidine 1 combo 10/01/17 17:46 Actifed - PO TID PRN NASAL CONGESTION Thiamine HCl 100 mg 10/01/17 22:00 10/27/17 21:32 Vitamin B1 - PO 100 mg HS ELINA Administration Trazodone HCl 100 mg 10/02/17 22:00 10/27/17 21:32 Desyrel - PO 100 mg HS ELINA Administration Ziprasidone 40 mg 10/08/17 22:00 10/27/17 21:33 Geodon - PO 40 mg HS ELINA Administration Current Side Effect: No Lab tests ordered: Yes Lab tests reviewed: Yes Provider note:: Patient will be complete this program on 10/29/17. He has met his treatment goals and will continue to address his issues in outpatient treatment at [facility]. He verbalized understanding of the consequences of his addiction and from his participation i this program, he has learned to be humble and be contempt with what he has. He responded well to Wellbutrin XL 300 mg po daily, Geodon 40 mg po HS and Trazadone 100 mg po HS. Scripts for 30 days supply of these medications will be electronically transmitted to [facility] at [address] [place] [address]. He is stable for discharge on 10/29/17 Total face to face time:: 35 Mental Status Exam - Mental Status Exam Alert and Oriented to: Time, Place, Person Cognitive Function: Fair Patient Appearance: Well Groomed Mood: Hopeful, Euthymic Affect: Appropriate Patient Behavior: Cooperative Speech Pattern: Clear Voice Loudness: Normal Thought Process: Intact, Goal Oriented Thought Disorder: Not Present Hallucinations: Denies Suicidal Ideation: Denies Homicidal Ideation: Denies Insight/Judgement: Fair Sleep: Fair Appetite: Good Muscle strength/Tone: Normal Gait/Station: Normal Psychiatric Treatment Plan - Problem List (5) GERD (gastroesophageal reflux disease) Qualifiers: Esophagitis presence: without esophagitis Qualified Code(s): K21.9 - Gastro -esophageal reflux disease without esophagitis Initial treatment plan: Patient will be discharged tomorrow and referred to [facility] for outpatient treatment
[2017-10-28] MEDS: ZIPRASIDONE 40 MG CAPSULE (FP) PO SCH (21:30)
[2017-10-28] MEDS: traZODone HCL 100 MG TABLET (FP) PO SCH (21:30)
[2017-10-28] MEDS: THIAMINE HCL 100 MG TABLET (FP) PO SCH (21:30)
[2017-10-29 07:05] VITALS: BP 104/68; PULSE 81; TEMP 97.8
[2017-10-29] MEDS: hydrOXYzine PAMOATE 50 MG CAPSULE (FP) PO PRN (09:05)
[2017-10-29] MEDS: PRENATAL VITAMINS W/ FOLIC ACID TABLET (FP) PO SCH (09:05)
== END 2017-10-29 09:30 | disposition home or self-care (01) | DRG 895 ==
LOC: YASAS 12:08 → Y3W 18:10
PROVIDERS: ADMIT Psychiatry & Neurology Psychiatry; ATTEND Psychiatry & Neurology Psychiatry
PROC: HZ42ZZZ Group Counseling for Substance Abuse Treatment, Cognitive-Behavioral (ICD-10-PCS; principal; 2017-10-01)
DX: F19.20 Other psychoactive substance dependence, uncomplicated (principal); F31.89 Other bipolar disorder; F19.282 Other psychoactive substance dependence with psychoactive substance-induced sleep disorder; F10.20 Alcohol dependence, uncomplicated; F12.20 Cannabis dependence, uncomplicated; F43.10 Post-traumatic stress disorder, unspecified; F41.9 Anxiety disorder, unspecified; K21.9 Gastro-esophageal reflux disease without esophagitis; Z86.19 Personal history of other infectious and parasitic diseases; Z91.5 Personal history of self-harm
CPT/HCPCS: 36415; 71046-TC-FY; 80053; 81003; 85027; 86593; 93005; 93010

== ENCOUNTER 2020-01-30 14:33 | Inpatient (IN) | payer OTHER ==
--- NOTE | 2020-01-30 15:25 | BHS.RME ---
Substance Use & Tx History - Substance Use History Alcohol Substance amount: 1/2 gallon Vodka Frequency of use: Daily Substance route: Oral Date of Last Use: 01/30/20 (First use 1 yo.?, No seizures. Blackout in 1999. Admits to an eye rn flight) Cocaine-Crack Substance amount: $100 Frequency of use: Less than 3 times per week Substance route: Smoking Date of Last Use: 01/26/20 (First use age 13 y) Marijuana/Hashish Substance amount: $20 Frequency of use: Less than 3 times per week Substance route: Smoking Date of Last Use: 01/30/20 (First use age 9y) - Last Treatment Date of last treatment: [facility] 10/01 to 10/29/2017 Where was last treatment: Rehab Physical/Psych/Mental Status - Behavior General Behavior: Increased activity (restlessness, agitation) Eye Contact: Normal - Cooperativeness Cooperativeness: Cooperative - Thinking Thought Processes: Tight Thought content: Future oriented - Physical Health Problems Is patient presently having any pain?: Yes (right shoulder x 2 mos) Does patient presently have any injuries (include location): No Does patient currently have a fever: No CIWA Nausea/Vomitin Muscle Tremors: 4-Moderate,w/Arms Extend Anxiety: 4-Mod. Anxious/Guarded Agitation: 1-Slight > Activity Paroxysmal Sweats: No Perspiration Orientation: 0-Oriented Tacttile Disturbances: 0-None Auditory Disturbances: 0-None Visual Disturbances: 0-None Headache: 0-None Present CIWA-Ar Total Score: 12
--- NOTE | 2020-01-30 16:34 | HP ---
"CIWA Score Nausea/Vomitin Muscle Tremors: 4-Moderate,w/Arms Extend Anxiety: 5 Agitation: 1-Slight > Activity Paroxysmal Sweats: No Perspiration Orientation: 0-Oriented Tacttile Disturbances: 0-None Auditory Disturbances: 0-None Visual Disturbances: 0-None Headache: 0-None Present CIWA-Ar Total Score: 12 - Admission Criteria OASAS Guidelines: Admission for Medically Managed Detox: Requires at least one of the followin. CIWA greater than 12 2. Seizures within the past 24 hours 3. Delirium tremens within the past 24 hours 4. Hallucinations within the past 24 hours 5. Acute intervention needed for co occurring medical disorder 6. Acute intervention needed for co occurring psychiatric disorder 7. Severe withdrawal that cannot be handled at a lower level of care (continued vomiting, continued diarrhea, abnormal vital signs) requiring intravenous medication and/or fluids 8. Admitting History and Physical - Smoking History Smoking history: Never smoked Have you smoked in the past 12 months: No Aproximately how many cigarettes per day: 0 - Alcohol/Substance Use Hx Alcohol Use: Yes Admission [facility] [employer] Allergies/Adverse Reactions: Allergies Allergy/AdvReac Type Severity Reaction Status Date / Time acetaminophen [From Tylenol] Allergy Verified 01/30/20 17:18 haloperidol [From Haldol] AdvReac Severe Verified 01/30/20 16:41 haloperidol lactate AdvReac Severe stiffness Verified 01/30/20 16:41 [From Haldol] History of Present Illness: This report was requested by: Citlali Olson | Reference #: [id number] Others' Prescriptions Patient Name: Delfin Hollis Date: 1970 Address: [address] [place] [address] Sex: Male Rx Written Rx Dispensed Drug Quantity Days Supply Prescriber Name Payment Method Dispenser 04/18/2019 04/21/2019 testosterone cyp 200 mg/ml 4ml 28 Lul Ware MD Medicare Andie Disbursement Clerk 02/01/2019 02/07/2019 testosterone cyp 200 mg/ml 4ml 28 Lul Ware MD Medicare Andie Disbursement Clerk 49 y.o. male reports relapse since November 2019 , sober 2 years and 2 months prior , reports he relapsed when his appetite was poor and he started smoking marijuana which led to him using cocaine and alcohol . cocaine : 2 x/ month 100 $ via smoking , first age of use 13 alcohol : 1/2 gallon /day x 1 mo , prior to which 1/2 pint x 2 months , prior sobriety 2 years and 2 mo w/ meetings . Heavy use since teens 40 oz beer before going to school. 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 cannabis : 20 $ /week, first age of use 8 tobacco : denies PMHX : denies PSHX : umbil hernia in infancy PSych : bipolar d/o , PTSD , anxiety in the past on Geodon , Wellbutrin , Vistaril , Trazodone , latest taken June 2019 . Exam Limitations: Clinical Condition - Review of Systems Constitutional: Loss of Appetite EENT: reports: No Symptoms Reported Respiratory: reports: No Symptoms reported Cardiac: reports: No Symptoms Reported GI: reports: Poor Appetite : reports: No Symptoms Reported Musculoskeletal: reports: Joint Pain (RIGHT shoulder x 2 months denies injuries , has had similar episodes in the past , went to physical therapy , had EMG/ NCS w/ symptoms resolution 1 yr ago .) Integumentary: reports: Rash ( non- pruritic rash on the back) Neuro: reports: Tremors Endocrine: reports: No Symptoms Reported Hematology: reports: No Symptoms Reported Psychiatric: reports: Orientated x3, Agitated, Anxious Patient History - Patient Medical History Hx Anemia: No Hx Asthma: No Hx Chronic Obstructive Pulmonary Disease (COPD): No Hx Cancer: No Hx Cardiac Disorders: No Hx Congestive Heart Failure: No Hx Hypertension: No Hx Hypercholesterolemia: No Hx Pacemaker: No HX Cerebrovascular Accident: No Hx Seizures: No Hx Dementia: No Hx Diabetes: No Hx Gastrointestinal Disorders: No Hx Liver Disease: No Hx Genitourinary Disorders: No Hx Sexually Transmitted Disorders: Yes (Syphillis, Gonorrhea ) Hx Renal Disease (ESRD): No Hx Thyroid Disease: No Hx Human Immunodeficiency Virus (HIV): No (negative, November 2016) Hx Hepatitis C: No (negative) Hx Depression: Yes Hx Suicide Attempt: Yes (Tried to cut wrist in 1994/ denies any S/H ideation today) Hx Bipolar Disorder: Yes (GEODON/WELLBUTRIM) Hx Schizophrenia: No - Patient Surgical History Past Surgical History: Yes Hx Neurologic Surgery: No Hx Cataract Extraction: No Hx Cardiac Surgery: No Hx Lung Surgery: No Hx Breast Surgery: No Hx Abdominal Surgery: Yes (UMBILICAL HERNIA REPAIR AN INFANT) Hx Appendectomy: No Hx Cholecystectomy: No Hx Genitourinary Surgery: No Hx Orthopedic Surgery: No Anesthesia Reaction: No - PPD History Results: CXR COPY - Smoking Cessation Smoking history: Never smoked Have you smoked in the past 12 months: No Aproximately how many cigarettes per day: 0 Hx Chewing Tobacco Use: No - Substances abused Alcohol Substance route: Oral Frequency: Daily Amount used: LIQUOR- 1/2 GALLON Age of first use: 4 Date of last use: 01/30/20 Cocaine Frequency: 1-3 times last 30 days Amount used: $100 WORTH Age of first use: 13 Date of last use: 01/26/20 Marijuana/Hashish Substance route: Smoking Frequency: 1-2 times per week Amount used: $20 WORTH Age of first use: 15 Date of last use: 01/30/20 Admission Physical Exam S - Physical General Appearance: Yes: Mild Distress, Tremorous, Anxious HEENTM: Yes: EOMI, Hearing grossly Normal, Normocephalic, Normal Voice Respiratory: Yes: Chest Non-Tender, Lungs Clear, Normal Breath Sounds, No Respiratory Distress, No Accessory Muscle Use Neck: Yes: No masses,lesions,Nodules, Trachea in good position Cardiology: Yes: Regular Rhythm, Regular Rate, S1, S2 Abdominal: Yes: Normal Bowel Sounds, Non Tender, Soft Musculoskeletal: Yes: Gait Steady Extremities: Yes: Normal Inspection, Normal Range of Motion, Non-Tender Neurological: Yes: Fully Oriented, Alert, Motor Strength 5/5 Integumentary: Yes: Warm, Rash (RIGHT posterior upper thorax , maculopapular , no d/c , scattered papules.) - Diagnostic (1) Alcohol dependence with uncomplicated withdrawal Current Visit: Yes Status: Chronic (2) Cannabis dependence, uncomplicated Current Visit: Yes Status: Chronic (3) Cocaine dependence Current Visit: Yes Status: Chronic Qualifiers: Substance use status: uncomplicated Qualified Code(s): F14.20 - Cocaine dependence, uncomplicated Breathalyzer - Breathalyzer Breathalyzer: 0.019 Urine Drug Screen - Test Device Lot number: [id number] Expiration date: 02/05/22 - Control Is test valid?: Yes - Results Drug screen NEGATIVE: No Urine drug screen results: THC-Marijuana, SHAYY-Cocaine, FEN-Fentanyl, MOP- Opiates, MTD-Methadone Inpatient Rehab Admission - Rehab Decision to Admit Inpatient rehab admission?: No"
[2020-01-30] MEDS ORDERED: MENTHOL/PHENOL 1 EACH UD MM PRN (16:41)
[2020-01-30] MEDS ORDERED: MAG HYDROX/AL HYDROX/SIMETH 30 ML UNIT-DOSE CUP PO PRN (16:41)
[2020-01-30] MEDS ORDERED: MAGNESIUM HYDROX 2400MG/30ML ORAL SUSPENSION 30 ML CUP PO PRN (16:41)
[2020-01-30] MEDS ORDERED: ONDANSETRON *ODT* 4 MG TABLET SL ONE (16:41)
[2020-01-30] MEDS ORDERED: ACETAMINOPHEN 325 MG TABLET (FP) PO PRN ×2 (16:41)
[2020-01-30] MEDS ORDERED: hydrOXYzine PAMOATE 25 MG CAPSULE (FP) PO PRN (16:41)
[2020-01-30] MEDS ORDERED: MAGNESIUM CITRATE 300 ML BOTTLE PO PRN (16:41)
[2020-01-30] MEDS ORDERED: METHOCARBAMOL 500 MG TABLET PO PRN (16:41)
[2020-01-30] MEDS ORDERED: chlordiazePOXIDE HCL 25 MG CAPSULE PO PRN (16:44)
[2020-01-30 16:58] VITALS: BMI 27.9
[2020-01-30] MEDS: chlordiazePOXIDE HCL 25 MG CAPSULE PO SCH ×2 (17:53→22:15)
[2020-01-30] MEDS: THIAMINE HCL 100 MG TABLET (FP) PO SCH (22:14)
[2020-01-30] MEDS: CLINDAMYCIN PHOSPHATE 1% TOPICAL GEL 30 GM TUBE TP SCH (22:15)
[2020-01-31] MEDS: chlordiazePOXIDE HCL 25 MG CAPSULE PO SCH ×4 (05:08→22:14)
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
--- NOTE | 2020-01-31 10:10 | PN ---
S CIWA - CIWA Score Nausea/Vomitin Muscle Tremors: 3 Anxiety: 2 Agitation: 2 Paroxysmal Sweats: No Perspiration Orientation: 0-Oriented Tacttile Disturbances: 1-Very Mild Itch/Numbness Auditory Disturbances: 0-None Visual Disturbances: 0-None Headache: 2-Mild CIWA-Ar Total Score: 12 BHS Progress Note (SOAP) Subjective: alert,irritable,anxious,interrupted sleep,tremor,pain in the body,back Objective: 01/31/20 10:07 Vital Signs Temperature 98.2 F 01/31/20 08:47 Pulse Rate 90 01/31/20 08:47 Respiratory Rate 18 01/31/20 08:47 Blood Pressure 133/87 01/31/20 08:47 O2 Sat by Pulse Oximetry (%) 97 01/31/20 08:47 01/31/20 10:09 labs pending Assessment: 01/31/20 10:09 withdrawal symptom Plan: continue detox librium regimen,psychiatric evaluation
[2020-01-31] MEDS: CLINDAMYCIN PHOSPHATE 1% TOPICAL GEL 30 GM TUBE TP SCH ×2 (10:39→22:15)
[2020-01-31] MEDS: PRENATAL VITAMINS W/ FOLIC ACID TABLET (FP) PO SCH (10:40)
[2020-01-31] MEDS: BISMUTH SUBSALICYLATE 524 MG/30 ML UD PO PRN (10:40)
[2020-01-31 11:22] LABS: HEMATOCRIT 46.6 % (35.4-49); HEMOGLOBIN 15.7 GM/dL (11.7-16.9); MCH 31.1 pg (25.7-33.7); MCHC 33.7 g/dl (32.0-35.9); MEAN CELL VOLUME 92.1 fl (80-96); MEAN PLT VOLUME 8.4 fl (7.5-11.1); PLATELET COUNT 226 K/MM3 (134-434); RBC 5.06 M/mm3 (4.00-5.60); RDW 13.5 % (11.9-15.9); WHITE BLOOD COUNT 4.2 K/mm3 (4.0-10.0)
[2020-01-31 11:23] LABS: ALBUMIN 3.2 g/dl (3.4-5.0); BILIRUBIN,TOTAL 1.1 mg/dL (0.2-1); BLOOD UREA NITROGEN 9.5 mg/dL (7-18); CALCIUM 8.8 mg/dL (8.5-10.1); CREATININE 1.1 mg/dL (0.55-1.3); POTASSIUM 4.4 mmol/L (3.5-5.1); TOT PROT 6.2 g/dl (6.4-8.2)
[2020-01-31] MEDS: THIAMINE HCL 100 MG TABLET (FP) PO SCH (22:15)
[2020-01-31] MEDS: MELATONIN 5 MG TABLETS PO PRN (22:16)
[2020-02-01] MEDS: chlordiazePOXIDE HCL 25 MG CAPSULE PO SCH ×4 (05:12→22:32)
[2020-02-01] MEDS: CLINDAMYCIN PHOSPHATE 1% TOPICAL GEL 30 GM TUBE TP SCH ×2 (10:26→22:32)
[2020-02-01] MEDS: PRENATAL VITAMINS W/ FOLIC ACID TABLET (FP) PO SCH (10:26)
[2020-02-01] MEDS: IBUPROFEN 400 MG TABLET (FP) PO PRN ×2 (10:28→16:49)
[2020-02-01] MEDS: BISMUTH SUBSALICYLATE 524 MG/30 ML UD PO PRN (10:30)
--- NOTE | 2020-02-01 11:44 | PN ---
[facility] CIWA - CIWA Score Nausea/Vomitin-Mild Nausea/No Vomiting Muscle Tremors: 2 Anxiety: 2 Agitation: 2 Paroxysmal Sweats: No Perspiration Orientation: 0-Oriented Tacttile Disturbances: 1-Very Mild Itch/Numbness Auditory Disturbances: 0-None Visual Disturbances: 0-None Headache: 1-Very Mild CIWA-Ar Total Score: 9 S Progress Note (SOAP) Subjective: alert,irritable,anxious,interrupted sleep,tremor,aching pain Objective: 02/01/20 11:42 Vital Signs Temperature 97.5 F L 02/01/20 08:37 Pulse Rate 79 02/01/20 08:37 Respiratory Rate 18 02/01/20 08:37 Blood Pressure 141/81 02/01/20 08:37 O2 Sat by Pulse Oximetry (%) 100 02/01/20 08:37 02/01/20 11:42 Laboratory Last Values WBC 4.2 K/mm3 (4.0-10.0) 01/31/20 08:00 RBC 5.06 M/mm3 (4.00-5.60) 01/31/20 08:00 Hgb 15.7 GM/dL (11.7-16.9) 01/31/20 08:00 Hct 46.6 % (35.4-49) 01/31/20 08:00 MCV 92.1 fl (80-96) 01/31/20 08:00 MCH 31.1 pg (25.7-33.7) 01/31/20 08:00 MCHC 33.7 g/dl (32.0-35.9) 01/31/20 08:00 RDW 13.5 % (11.9-15.9) 01/31/20 08:00 Plt Count 226 K/MM3 (134-434) D 01/31/20 08:00 MPV 8.4 fl (7.5-11.1) D 01/31/20 08:00 Sodium 142 mmol/L (136-145) 01/31/20 08:00 Potassium 4.4 mmol/L (3.5-5.1) 01/31/20 08:00 Chloride 105 mmol/L (98-107) 01/31/20 08:00 Carbon Dioxide 32 mmol/L (21-32) 01/31/20 08:00 Anion Gap 5 MMOL/L (8-16) L 01/31/20 08:00 BUN 9.5 mg/dL (7-18) 01/31/20 08:00 Creatinine 1.1 mg/dL (0.55-1.3) 01/31/20 08:00 Est GFR (CKD-EPI)AfAm 90.24 01/31/20 08:00 Est GFR (CKD-EPI)NonAf 77.86 01/31/20 08:00 Random Glucose 89 mg/dL (74-106) 01/31/20 08:00 Calcium 8.8 mg/dL (8.5-10.1) 01/31/20 08:00 Total Bilirubin 1.1 mg/dL (0.2-1) H 01/31/20 08:00 AST 21 U/L (15-37) 01/31/20 08:00 ALT 23 U/L (13-61) 01/31/20 08:00 Alkaline Phosphatase 45 U/L (45-117) 01/31/20 08:00 Total Protein 6.2 g/dl (6.4-8.2) L 01/31/20 08:00 Albumin 3.2 g/dl (3.4-5.0) L 01/31/20 08:00 Syphilis Serology Reactive (NONREACTIVE) A* 01/31/20 08:00 RPR Titer Reactive 1:1 (NONREACTIVE) H D 01/31/20 08:00 COVID-19 (MELYSSA) Not detected (Not Detected) 01/30/20 16:55 adequately treated for syphilis 30 years ago with 3 injections Assessment: 02/01/20 11:43 withdrawal symptom Plan: continue detox librium regimen
[2020-02-01] MEDS ORDERED: METHYL SALICYLATE/MENTHOL OINT 30 GM TUBE TP PRN (21:59)
[2020-02-01] MEDS ORDERED: LIDOCAINE PATCH REMOVAL MC SCH (22:00)
[2020-02-01] MEDS ORDERED: hydrOXYzine PAMOATE 25 MG CAPSULE (FP) PO PRN (22:01)
[2020-02-01] MEDS ORDERED: NAPROXEN 500 MG TABLET PO SCH (22:15)
[2020-02-01] MEDS: THIAMINE HCL 100 MG TABLET (FP) PO SCH (22:35)
[2020-02-01] MEDS: MELATONIN 5 MG TABLETS PO PRN (22:47)
[2020-02-02] MEDS ORDERED: chlordiazePOXIDE HCL 10 MG CAPSULE PO PRN
[2020-02-02] MEDS ORDERED: METHYL SALICYLATE/MENTHOL OINT 30 GM TUBE TP PRN (02:00)
[2020-02-02] MEDS ORDERED: IBUPROFEN 400 MG TABLET (FP) PO PRN (02:01)
[2020-02-02] MEDS ORDERED: chlordiazePOXIDE HCL 10 MG CAPSULE PO SCH (05:00)
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
[2020-02-02] MEDS ORDERED: LIDOCAINE 5% TOPICAL PATCH TP SCH ×2 (07:00→10:00)
[2020-02-02 09:48] VITALS: BP 121/78; PULSE 104; TEMP 97.3
--- NOTE | 2020-02-02 10:35 | PN ---
S CIWA - CIWA Score Nausea/Vomitin-No Nausea/No Vomiting Muscle Tremors: None Anxiety: 1-Mildly Anxious Agitation: 0-Normal Activity Paroxysmal Sweats: No Perspiration Orientation: 0-Oriented Tacttile Disturbances: 0-None Auditory Disturbances: 0-None Visual Disturbances: 0-None Headache: 0-None Present CIWA-Ar Total Score: 1 BHS Progress Note (SOAP) Subjective: alert,complaint of pain in right shoulder,chronic pain for 2 months on lidoderm patch Objective: 02/02/20 10:33 Vital Signs Temperature 97.3 F L 02/02/20 08:38 Pulse Rate 104 H 02/02/20 08:38 Respiratory Rate 20 02/02/20 08:38 Blood Pressure 121/78 02/02/20 08:38 O2 Sat by Pulse Oximetry (%) 100 02/02/20 08:38 Assessment: 02/02/20 10:33 no withdrawal symptom patient is stable for discharge today Plan: stable for discharge,follow up with after care program as arrangement and to see his medical provider for chronic apin of right shoulder at [facility]
--- NOTE | 2020-02-02 10:36 | DS ---
[facility] Detox Discharge Summary Admission Date: 01/30/20 - History Present History: Alcohol Dependence, Cannabis Dependence, Cocaine Dependence Additional Comments: alert,oriented x 3 ambulation on the unit pain in the right shoulder lung clear on auscultation bilaterally abdomen soft,no pain,no tenderness no withdrawal symptom stable for discharge today follow up with after care program out patient as arrangement by counselor patient declined rehab follow up with medical provider at [facility] for evaluation and treatment of chronic pain n the right shoulder total time spending on discharge 35 minutes Pertinent Past History: gerd bipolar disorder chronic pain in right shoulder history of syphilis treated in the past - Physical Exam Results Vital Signs: Vital Signs Temperature 97.3 F L 02/02/20 08:38 Pulse Rate 104 H 02/02/20 08:38 Respiratory Rate 20 02/02/20 08:38 Blood Pressure 121/78 02/02/20 08:38 O2 Sat by Pulse Oximetry (%) 100 02/02/20 08:38 Pertinent Admission Physical Exam Findings: withdrawal sings and symptom Laboratory Last Values WBC 4.2 K/mm3 (4.0-10.0) 01/31/20 08:00 RBC 5.06 M/mm3 (4.00-5.60) 01/31/20 08:00 Hgb 15.7 GM/dL (11.7-16.9) 01/31/20 08:00 Hct 46.6 % (35.4-49) 01/31/20 08:00 MCV 92.1 fl (80-96) 01/31/20 08:00 MCH 31.1 pg (25.7-33.7) 01/31/20 08:00 MCHC 33.7 g/dl (32.0-35.9) 01/31/20 08:00 RDW 13.5 % (11.9-15.9) 01/31/20 08:00 Plt Count 226 K/MM3 (134-434) D 01/31/20 08:00 MPV 8.4 fl (7.5-11.1) D 01/31/20 08:00 Sodium 142 mmol/L (136-145) 01/31/20 08:00 Potassium 4.4 mmol/L (3.5-5.1) 01/31/20 08:00 Chloride 105 mmol/L (98-107) 01/31/20 08:00 Carbon Dioxide 32 mmol/L (21-32) 01/31/20 08:00 Anion Gap 5 MMOL/L (8-16) L 01/31/20 08:00 BUN 9.5 mg/dL (7-18) 01/31/20 08:00 Creatinine 1.1 mg/dL (0.55-1.3) 01/31/20 08:00 Est GFR (CKD-EPI)AfAm 90.24 01/31/20 08:00 Est GFR (CKD-EPI)NonAf 77.86 01/31/20 08:00 Random Glucose 89 mg/dL (74-106) 01/31/20 08:00 Calcium 8.8 mg/dL (8.5-10.1) 01/31/20 08:00 Total Bilirubin 1.1 mg/dL (0.2-1) H 01/31/20 08:00 AST 21 U/L (15-37) 01/31/20 08:00 ALT 23 U/L (13-61) 01/31/20 08:00 Alkaline Phosphatase 45 U/L (45-117) 01/31/20 08:00 Total Protein 6.2 g/dl (6.4-8.2) L 01/31/20 08:00 Albumin 3.2 g/dl (3.4-5.0) L 01/31/20 08:00 Syphilis Serology Reactive (NONREACTIVE) A* 01/31/20 08:00 RPR Titer Reactive 1:1 (NONREACTIVE) H D 01/31/20 08:00 COVID-19 (MELYSSA) Not detected (Not Detected) 01/30/20 16:55 history of syphilis adequately treated with 3 injections in the past - Treatment Hospital Course: Detox Protocol Followed, Detoxed Safely, Responded well, Discharged Condition Good Patient has Accepted a Rehab Referral to: declined - Medication Discharge Medications: Ambulatory Orders hydrOXYzine PAMOATE [Vistaril -] 50 mg PO TID PRN 05/14/16 Bupropion HCl [Wellbutrin Xl -] 300 mg PO DAILY #30 tab.sr.24h 10/28/17 Ziprasidone [Geodon -] 40 mg PO HS #30 capsule 10/28/17 traZODone HCL [Trazodone HCl] 100 mg PO HS #30 tablet 10/28/17 - Diagnosis (1) Chronic pain Current Visit: Yes Status: Acute (2) Alcohol dependence with uncomplicated withdrawal Current Visit: Yes Status: Chronic (3) Bipolar disorder Current Visit: Yes Status: Chronic (4) Cocaine dependence Current Visit: Yes Status: Chronic Qualifiers: Substance use status: uncomplicated Qualified Code(s): F14.20 - Cocaine dependence, uncomplicated (5) Cannabis dependence Current Visit: No Status: Acute (6) GERD (gastroesophageal reflux disease) Current Visit: No Status: Chronic Qualifiers: Esophagitis presence: without esophagitis Qualified Code(s): K21.9 - Gastro-esophageal reflux disease without esophagitis (7) History of syphilis Current Visit: Yes Status: Acute - AMA Did Patient Leave Against Medical Advice: No
[2020-02-02] MEDS: PRENATAL VITAMINS W/ FOLIC ACID TABLET (FP) PO SCH (11:02)
[2020-02-02] MEDS: CLINDAMYCIN PHOSPHATE 1% TOPICAL GEL 30 GM TUBE TP SCH (11:02)
[2020-02-02] MEDS ORDERED: LIDOCAINE PATCH REMOVAL MC SCH (19:00)
[2020-02-03] MEDS ORDERED: chlordiazePOXIDE HCL 10 MG CAPSULE PO SCH (05:00)
[2020-02-04] MEDS ORDERED: chlordiazePOXIDE HCL 10 MG CAPSULE PO ONE (05:00)
== END 2020-02-02 10:13 | disposition home or self-care (01) | DRG 897 ==
LOC: YASAS 14:33 → Y6N 17:07
PROVIDERS: ADMIT Allergy & Immunology; ATTEND Allergy & Immunology
PROC: HZ2ZZZZ Detoxification Services for Substance Abuse Treatment (ICD-10-PCS; principal; 2020-01-30)
DX: F10.230 Alcohol dependence with withdrawal, uncomplicated (principal); F14.20 Cocaine dependence, uncomplicated; F19.282 Other psychoactive substance dependence with psychoactive substance-induced sleep disorder; F12.20 Cannabis dependence, uncomplicated; F31.9 Bipolar disorder, unspecified; F19.24 Other psychoactive substance dependence with psychoactive substance-induced mood disorder; K21.9 Gastro-esophageal reflux disease without esophagitis; M25.511 Pain in right shoulder; G89.29 Other chronic pain; Z87.438 Personal history of other diseases of male genital organs; Z88.6 Allergy status to analgesic agent; Z88.8 Allergy status to other drugs, medicaments and biological substances; Z91.5 Personal history of self-harm
CPT/HCPCS: 36415; 71045-TC-FY; 80053; 85027; 86593; 86780; Q0162; U0003

== ENCOUNTER 2020-05-24 10:12 | Inpatient (IN) | payer OTHER ==
[2020-05-24 11:14] VITALS: BMI 19.4
[2020-05-24] MEDS ORDERED: BISMUTH SUBSALICYLATE 524 MG/30 ML UD PO PRN (12:03)
[2020-05-24] MEDS ORDERED: MAG HYDROX/AL HYDROX/SIMETH 30 ML UNIT-DOSE CUP PO PRN (12:03)
[2020-05-24] MEDS ORDERED: ONDANSETRON *ODT* 4 MG TABLET SL PRN (12:03)
[2020-05-24] MEDS ORDERED: MAGNESIUM HYDROX 2400MG/30ML ORAL SUSPENSION 30 ML CUP PO PRN (12:03)
[2020-05-24] MEDS ORDERED: MAGNESIUM CITRATE 300 ML BOTTLE PO PRN (12:03)
[2020-05-24] MEDS ORDERED: chlordiazePOXIDE HCL 25 MG CAPSULE PO ONE (12:03)
[2020-05-24] MEDS ORDERED: METHOCARBAMOL 500 MG TABLET PO PRN (12:03)
[2020-05-24] MEDS ORDERED: chlordiazePOXIDE HCL 25 MG CAPSULE PO PRN (12:03)
[2020-05-24] MEDS ORDERED: MENTHOL/PHENOL 1 EACH UD MM PRN (12:03)
[2020-05-24] MEDS: hydrOXYzine PAMOATE 25 MG CAPSULE (FP) PO SCH ×3 (13:13→22:07)
[2020-05-24 14:29] LABS: POTASSIUM 4.5 mmol/L (3.5-5.1)
[2020-05-24 14:32] LABS: ALBUMIN 3.9 g/dl (3.4-5.0); BLOOD UREA NITROGEN 13.8 mg/dL (7-18); CALCIUM 8.8 mg/dL (8.5-10.1)
[2020-05-24 14:33] LABS: HEMATOCRIT 46.3 % (35.4-49); HEMOGLOBIN 15.7 GM/dL (11.7-16.9); MCH 30.3 pg (25.7-33.7); MCHC 33.8 g/dl (32.0-35.9); MEAN CELL VOLUME 89.6 fl (80-96); MEAN PLT VOLUME 7.9 fl (7.5-11.1); PLATELET COUNT 257 K/MM3 (134-434); RBC 5.17 M/mm3 (4.00-5.60); RDW 12.8 % (11.9-15.9); WHITE BLOOD COUNT 6.9 K/mm3 (4.0-10.0)
[2020-05-24 14:36] LABS: BILIRUBIN,TOTAL 0.5 mg/dL (0.2-1); CREATININE 1.3 mg/dL (0.55-1.3); TOT PROT 7.5 g/dl (6.4-8.2)
[2020-05-24] MEDS: chlordiazePOXIDE HCL 25 MG CAPSULE PO SCH ×2 (17:12→22:06)
[2020-05-24] MEDS: MELATONIN 5 MG TABLETS PO SCH (22:07)
[2020-05-24] MEDS: THIAMINE HCL 100 MG TABLET (FP) PO SCH (22:07)
[2020-05-25] MEDS: chlordiazePOXIDE HCL 25 MG CAPSULE PO SCH ×4 (06:18→22:35)
[2020-05-25] MEDS: hydrOXYzine PAMOATE 25 MG CAPSULE (FP) PO SCH ×5 (06:18→22:35)
[2020-05-25] MEDS: PRENATAL VITAMINS W/ FOLIC ACID TABLET (FP) PO SCH (10:22)
[2020-05-25] MEDS: THIAMINE HCL 100 MG TABLET (FP) PO SCH (22:34)
[2020-05-25] MEDS: MELATONIN 5 MG TABLETS PO SCH (22:35)
[2020-05-25] MEDS: traZODone HCL 50 MG TABLET (FP) PO SCH (22:35)
[2020-05-26] MEDS: hydrOXYzine PAMOATE 25 MG CAPSULE (FP) PO SCH ×5 (06:02→22:17)
[2020-05-26] MEDS: chlordiazePOXIDE HCL 25 MG CAPSULE PO SCH ×4 (06:02→22:17)
[2020-05-26] MEDS ORDERED: ZIPRASIDONE 20 MG CAPSULE PO SCH (10:00)
[2020-05-26] MEDS: PRENATAL VITAMINS W/ FOLIC ACID TABLET (FP) PO SCH (10:25)
[2020-05-26] MEDS: traZODone HCL 50 MG TABLET (FP) PO SCH (22:17)
[2020-05-26] MEDS: THIAMINE HCL 100 MG TABLET (FP) PO SCH (22:17)
[2020-05-26] MEDS: MELATONIN 5 MG TABLETS PO SCH (22:17)
[2020-05-27] MEDS ORDERED: chlordiazePOXIDE HCL 10 MG CAPSULE PO PRN
[2020-05-27] MEDS: chlordiazePOXIDE HCL 10 MG CAPSULE PO SCH ×4 (05:28→22:11)
[2020-05-27] MEDS: hydrOXYzine PAMOATE 25 MG CAPSULE (FP) PO SCH ×5 (05:28→22:11)
[2020-05-27] MEDS: PRENATAL VITAMINS W/ FOLIC ACID TABLET (FP) PO SCH (10:15)
[2020-05-27] MEDS: THIAMINE HCL 100 MG TABLET (FP) PO SCH (22:11)
[2020-05-27] MEDS: traZODone HCL 50 MG TABLET (FP) PO SCH (22:11)
[2020-05-27] MEDS: MELATONIN 5 MG TABLETS PO SCH (22:11)
[2020-05-28] MEDS: chlordiazePOXIDE HCL 10 MG CAPSULE PO SCH ×2 (05:45→17:19)
[2020-05-28] MEDS: hydrOXYzine PAMOATE 25 MG CAPSULE (FP) PO SCH ×2 (05:45→10:27)
[2020-05-28] MEDS: IBUPROFEN 400 MG TABLET (FP) PO PRN ×2 (05:45→22:06)
[2020-05-28] MEDS ORDERED: ZIPRASIDONE 20 MG CAPSULE PO ONE (10:21)
[2020-05-28] MEDS: PRENATAL VITAMINS W/ FOLIC ACID TABLET (FP) PO SCH (10:27)
[2020-05-28] MEDS: ZIPRASIDONE 20 MG CAPSULE PO SCH (13:45)
[2020-05-28] MEDS: THIAMINE HCL 100 MG TABLET (FP) PO SCH (22:04)
[2020-05-28] MEDS: MELATONIN 5 MG TABLETS PO SCH (22:05)
[2020-05-29] MEDS ORDERED: chlordiazePOXIDE HCL 10 MG CAPSULE PO ONE (05:00)
[2020-05-29 09:45] VITALS: BP 132/89; PULSE 78; TEMP 97.1
[2020-05-29] MEDS: ZIPRASIDONE 20 MG CAPSULE PO SCH (10:22)
[2020-05-29] MEDS: PRENATAL VITAMINS W/ FOLIC ACID TABLET (FP) PO SCH (10:23)
== END 2020-05-29 11:36 | disposition other institution (70) | DRG 897 ==
LOC: YASAS 10:12 → Y3N 12:24
PROVIDERS: ADMIT Allergy & Immunology; ATTEND Allergy & Immunology
PROC: HZ2ZZZZ Detoxification Services for Substance Abuse Treatment (ICD-10-PCS; principal; 2020-05-24)
DX: F10.230 Alcohol dependence with withdrawal, uncomplicated (principal); F14.20 Cocaine dependence, uncomplicated; F12.20 Cannabis dependence, uncomplicated; F17.210 Nicotine dependence, cigarettes, uncomplicated; F19.24 Other psychoactive substance dependence with psychoactive substance-induced mood disorder; F31.9 Bipolar disorder, unspecified; F43.10 Post-traumatic stress disorder, unspecified; K21.9 Gastro-esophageal reflux disease without esophagitis; Z62.810 Personal history of physical and sexual abuse in childhood; Z86.19 Personal history of other infectious and parasitic diseases; Z88.8 Allergy status to other drugs, medicaments and biological substances; Z88.6 Allergy status to analgesic agent; Z91.14 Patient's other noncompliance with medication regimen
CPT/HCPCS: 36415; 80053; 85027; 86593; 86780; 93005; 93010; C9803; U0003

== ENCOUNTER 2020-10-25 19:56 | Inpatient (IN) | payer OTHER ==
[2020-10-25 20:52] VITALS: BMI 29.0
[2020-10-26] MEDS ORDERED: METHOCARBAMOL 500 MG TABLET PO PRN (01:25)
[2020-10-26] MEDS ORDERED: MAG HYDROX/AL HYDROX/SIMETH 30 ML UNIT-DOSE CUP PO PRN (01:25)
[2020-10-26] MEDS ORDERED: BISMUTH SUBSALICYLATE 524 MG/30 ML UD PO PRN (01:25)
[2020-10-26] MEDS ORDERED: MAGNESIUM HYDROX 2400MG/30ML ORAL SUSPENSION 30 ML CUP PO PRN (01:25)
[2020-10-26] MEDS ORDERED: chlordiazePOXIDE HCL 25 MG CAPSULE PO PRN (01:25)
[2020-10-26] MEDS ORDERED: MENTHOL/PHENOL 1 EACH UD MM PRN (01:25)
[2020-10-26] MEDS ORDERED: ONDANSETRON *ODT* 4 MG TABLET SL PRN (01:25)
[2020-10-26] MEDS ORDERED: IBUPROFEN 400 MG TABLET (FP) PO PRN (01:25)
[2020-10-26] MEDS ORDERED: MAGNESIUM CITRATE 300 ML BOTTLE PO PRN (01:25)
[2020-10-26] MEDS ORDERED: chlordiazePOXIDE HCL 25 MG CAPSULE ONE (03:44)
[2020-10-26] MEDS: chlordiazePOXIDE HCL 25 MG CAPSULE PO SCH ×4 (04:00→22:35)
[2020-10-26] MEDS: hydrOXYzine PAMOATE 25 MG CAPSULE (FP) PO SCH ×5 (07:05→22:35)
[2020-10-26] MEDS: PRENATAL VITAMINS W/ FOLIC ACID TABLET (FP) PO SCH (10:46)
[2020-10-26 10:58] LABS: HEMATOCRIT 47.9 % (35.4-49); HEMOGLOBIN 16.2 GM/dL (11.7-16.9); MCH 30.9 pg (25.7-33.7); MCHC 33.7 g/dl (32.0-35.9); MEAN CELL VOLUME 91.6 fl (80-96); MEAN PLT VOLUME 8.1 fl (7.5-11.1); PLATELET COUNT 199 K/MM3 (134-434); RBC 5.23 M/mm3 (4.00-5.60); RDW 13.3 % (11.9-15.9); WHITE BLOOD COUNT 3.7 K/mm3 (4.0-10.0)
[2020-10-26 11:03] LABS: ALBUMIN 3.4 g/dl (3.4-5.0); BLOOD UREA NITROGEN 9.4 mg/dL (7-18)
[2020-10-26 11:08] LABS: BILIRUBIN,TOTAL 1.2 mg/dL (0.2-1); TOT PROT 6.4 g/dl (6.4-8.2)
[2020-10-26 11:32] LABS: CALCIUM 9.1 mg/dL (8.5-10.1); CREATININE 1.2 mg/dL (0.55-1.3)
[2020-10-26] MEDS: ZIPRASIDONE 40 MG CAPSULE PO SCH (18:05)
[2020-10-26] MEDS: THIAMINE HCL 100 MG TABLET (FP) PO SCH (22:35)
[2020-10-26] MEDS: traZODone HCL 50 MG TABLET (FP) PO SCH (22:35)
[2020-10-26] MEDS: MELATONIN 5 MG TABLETS PO SCH (22:36)
[2020-10-27] MEDS: hydrOXYzine PAMOATE 25 MG CAPSULE (FP) PO SCH ×5 (05:48→22:24)
[2020-10-27] MEDS: chlordiazePOXIDE HCL 25 MG CAPSULE PO SCH ×4 (05:49→22:26)
[2020-10-27] MEDS: PRENATAL VITAMINS W/ FOLIC ACID TABLET (FP) PO SCH (11:23)
[2020-10-27] MEDS: ZIPRASIDONE 40 MG CAPSULE PO SCH (17:55)
[2020-10-27] MEDS: THIAMINE HCL 100 MG TABLET (FP) PO SCH (22:24)
[2020-10-27] MEDS: traZODone HCL 50 MG TABLET (FP) PO SCH (22:25)
[2020-10-27] MEDS: MELATONIN 5 MG TABLETS PO SCH (22:39)
[2020-10-28] MEDS ORDERED: chlordiazePOXIDE HCL 10 MG CAPSULE PO PRN
[2020-10-28] MEDS: hydrOXYzine PAMOATE 25 MG CAPSULE (FP) PO SCH ×5 (05:30→21:22)
[2020-10-28] MEDS: chlordiazePOXIDE HCL 10 MG CAPSULE PO SCH ×4 (05:30→22:00)
[2020-10-28] MEDS: PRENATAL VITAMINS W/ FOLIC ACID TABLET (FP) PO SCH (10:38)
[2020-10-28] MEDS: ZIPRASIDONE 40 MG CAPSULE PO SCH (18:07)
[2020-10-28] MEDS: THIAMINE HCL 100 MG TABLET (FP) PO SCH (21:22)
[2020-10-28] MEDS: MELATONIN 5 MG TABLETS PO SCH (21:22)
[2020-10-28] MEDS: traZODone HCL 50 MG TABLET (FP) PO SCH (21:29)
[2020-10-29] MEDS: hydrOXYzine PAMOATE 25 MG CAPSULE (FP) PO SCH ×2 (05:30→12:18)
[2020-10-29] MEDS: chlordiazePOXIDE HCL 10 MG CAPSULE PO SCH ×2 (05:30→17:52)
[2020-10-29 06:07] LABS: SARS-CoV-2 NAA Not Detected (Not Detected)
[2020-10-29] MEDS ORDERED: hydrOXYzine PAMOATE 25 MG CAPSULE (FP) PO PRN (10:27)
[2020-10-29] MEDS: PRENATAL VITAMINS W/ FOLIC ACID TABLET (FP) PO SCH (12:17)
[2020-10-29] MEDS ORDERED: SIMETHICONE 80 MG TAB.CHEW (FP) PO PRN (13:13)
[2020-10-29] MEDS: ZIPRASIDONE 40 MG CAPSULE PO SCH (17:52)
[2020-10-29] MEDS: THIAMINE HCL 100 MG TABLET (FP) PO SCH (22:36)
[2020-10-29] MEDS: MELATONIN 5 MG TABLETS PO SCH (22:36)
[2020-10-29] MEDS: traZODone HCL 50 MG TABLET (FP) PO SCH (22:36)
[2020-10-30] MEDS ORDERED: chlordiazePOXIDE HCL 10 MG CAPSULE PO ONE (05:00)
[2020-10-30 06:33] VITALS: BP 115/83; PULSE 87; TEMP 97.2
== END 2020-10-30 06:50 | disposition home or self-care (01) | DRG 897 ==
LOC: YASAS 19:56 → Y3N 10-26 09:24
PROVIDERS: ADMIT Allergy & Immunology; ATTEND Allergy & Immunology
PROC: HZ2ZZZZ Detoxification Services for Substance Abuse Treatment (ICD-10-PCS; principal; 2020-10-26)
DX: F10.230 Alcohol dependence with withdrawal, uncomplicated (principal); F14.20 Cocaine dependence, uncomplicated; F12.20 Cannabis dependence, uncomplicated; F19.24 Other psychoactive substance dependence with psychoactive substance-induced mood disorder; F31.9 Bipolar disorder, unspecified; F43.10 Post-traumatic stress disorder, unspecified; A53.0 Latent syphilis, unspecified as early or late; R79.89 Other specified abnormal findings of blood chemistry; Z62.810 Personal history of physical and sexual abuse in childhood; Z86.11 Personal history of tuberculosis; Z86.19 Personal history of other infectious and parasitic diseases; Z88.8 Allergy status to other drugs, medicaments and biological substances; Z88.6 Allergy status to analgesic agent
CPT/HCPCS: 36415; 80053; 85027; 86593; 86780; 93005; 93010; C9803; Q0162; U0003; U0005

== ENCOUNTER 2020-12-11 19:16 | Inpatient (IN) | payer OTHER ==
[2020-12-11 19:50] VITALS: BMI 26.6
[2020-12-11] MEDS ORDERED: ONDANSETRON *ODT* 4 MG TABLET SL PRN (20:37)
[2020-12-11] MEDS ORDERED: MENTHOL/PHENOL 1 EACH UD MM PRN (20:37)
[2020-12-11] MEDS ORDERED: NICOTINE POLACRILEX 2 MG GUM BUC PRN (20:37)
[2020-12-11] MEDS ORDERED: diazePAM 5 MG TABLET PO PRN (20:37)
[2020-12-11] MEDS ORDERED: METHOCARBAMOL 500 MG TABLET PO PRN (20:37)
[2020-12-11] MEDS ORDERED: MAG HYDROX/AL HYDROX/SIMETH 30 ML UNIT-DOSE CUP PO PRN (20:37)
[2020-12-11] MEDS ORDERED: IBUPROFEN 400 MG TABLET (FP) PO PRN (20:37)
[2020-12-11] MEDS ORDERED: MAGNESIUM HYDROX 2400MG/30ML ORAL SUSPENSION 30 ML CUP PO PRN (20:37)
[2020-12-11] MEDS ORDERED: MAGNESIUM CITRATE 300 ML BOTTLE PO PRN (20:37)
[2020-12-11] MEDS ORDERED: BISMUTH SUBSALICYLATE 524 MG/30 ML PO PRN (20:37)
[2020-12-11] MEDS ORDERED: MELATONIN 5 MG TABLETS PO SCH (22:00)
[2020-12-11] MEDS: THIAMINE HCL 100 MG TABLET (FP) PO SCH (23:27)
[2020-12-11] MEDS: diazePAM 5 MG TABLET PO SCH (23:27)
[2020-12-12] MEDS: diazePAM 5 MG TABLET PO SCH ×4 (05:51→22:02)
[2020-12-12] MEDS ORDERED: cloNIDine HCL 0.1 MG TABLET PO PRN (08:24)
[2020-12-12 09:52] LABS: HEMATOCRIT 48.9 % (35.4-49); HEMOGLOBIN 16.9 GM/dL (11.7-16.9); MCH 30.6 pg (25.7-33.7); MCHC 34.6 g/dl (32.0-35.9); MEAN CELL VOLUME 88.2 fl (80-96); MEAN PLT VOLUME 7.7 fl (7.5-11.1); PLATELET COUNT 267 K/MM3 (134-434); RBC 5.54 M/mm3 (4.00-5.60); RDW 13.2 % (11.9-15.9)
[2020-12-12 10:07] LABS: ALBUMIN 4.1 g/dl (3.4-5.0); BLOOD UREA NITROGEN 10.7 mg/dL (7-18); CALCIUM 9.8 mg/dL (8.5-10.1)
[2020-12-12 10:10] LABS: CREATININE 1.4 mg/dL (0.55-1.3)
[2020-12-12 10:12] LABS: BILIRUBIN,TOTAL 0.6 mg/dL (0.2-1); TOT PROT 7.7 g/dl (6.4-8.2)
[2020-12-12] MEDS: PRENATAL VITAMINS W/ FOLIC ACID TABLET (FP) PO SCH (10:49)
[2020-12-12] MEDS: hydrOXYzine PAMOATE 50 MG CAPSULE (FP) PO PRN (15:39)
[2020-12-12] MEDS: BICTEGRAV/EMTRICIT/TENOFOV (BIKTARVY) 50-200-25 MG TABLET PO SCH (16:03)
[2020-12-12] MEDS: THIAMINE HCL 100 MG TABLET (FP) PO SCH (22:02)
[2020-12-12] MEDS: traZODone HCL 100 MG TABLET (FP) PO SCH (22:02)
[2020-12-12] MEDS: ZIPRASIDONE 40 MG CAPSULE PO SCH (22:03)
[2020-12-13] MEDS: diazePAM 5 MG TABLET PO SCH ×3 (06:41→22:34)
[2020-12-13] MEDS: BICTEGRAV/EMTRICIT/TENOFOV (BIKTARVY) 50-200-25 MG TABLET PO SCH (10:30)
[2020-12-13] MEDS: PRENATAL VITAMINS W/ FOLIC ACID TABLET (FP) PO SCH (10:30)
[2020-12-13] MEDS: traZODone HCL 100 MG TABLET (FP) PO SCH (22:34)
[2020-12-13] MEDS: THIAMINE HCL 100 MG TABLET (FP) PO SCH (22:34)
[2020-12-13] MEDS: ZIPRASIDONE 40 MG CAPSULE PO SCH (22:34)
[2020-12-14] MEDS: diazePAM 5 MG TABLET PO SCH ×2 (06:32→18:42)
[2020-12-14] MEDS: BICTEGRAV/EMTRICIT/TENOFOV (BIKTARVY) 50-200-25 MG TABLET PO SCH (10:54)
[2020-12-14] MEDS: PRENATAL VITAMINS W/ FOLIC ACID TABLET (FP) PO SCH (10:54)
[2020-12-14] MEDS: traZODone HCL 100 MG TABLET (FP) PO SCH (22:43)
[2020-12-14] MEDS: ZIPRASIDONE 40 MG CAPSULE PO SCH (22:43)
[2020-12-14] MEDS: THIAMINE HCL 100 MG TABLET (FP) PO SCH (22:43)
[2020-12-15] MEDS ORDERED: diazePAM 5 MG TABLET PO ONE (06:00)
[2020-12-15] MEDS: PRENATAL VITAMINS W/ FOLIC ACID TABLET (FP) PO SCH (10:42)
[2020-12-15] MEDS: BICTEGRAV/EMTRICIT/TENOFOV (BIKTARVY) 50-200-25 MG TABLET PO SCH (10:43)
[2020-12-15] MEDS: hydrOXYzine PAMOATE 50 MG CAPSULE (FP) PO PRN (13:47)
[2020-12-15] MEDS ORDERED: traZODone HCL 50 MG TABLET (FP) ONE (21:44)
[2020-12-15] MEDS: THIAMINE HCL 100 MG TABLET (FP) PO SCH (22:18)
[2020-12-15] MEDS: ZIPRASIDONE 40 MG CAPSULE PO SCH (22:18)
[2020-12-15] MEDS: traZODone HCL 100 MG TABLET (FP) PO SCH (22:18)
[2020-12-16] MEDS: PRENATAL VITAMINS W/ FOLIC ACID TABLET (FP) PO SCH (10:24)
[2020-12-16] MEDS: BICTEGRAV/EMTRICIT/TENOFOV (BIKTARVY) 50-200-25 MG TABLET PO SCH (10:25)
[2020-12-16] MEDS: hydrOXYzine PAMOATE 50 MG CAPSULE (FP) PO PRN (10:26)
[2020-12-16 17:25] VITALS: BP 119/86; PULSE 72; TEMP 99
== END 2020-12-16 17:57 | disposition other institution (70) | DRG 897 ==
LOC: YASAS 19:16 → Y6N 21:49
PROVIDERS: ADMIT Allergy & Immunology; ATTEND Allergy & Immunology
PROC: HZ2ZZZZ Detoxification Services for Substance Abuse Treatment (ICD-10-PCS; principal; 2020-12-11)
DX: F10.230 Alcohol dependence with withdrawal, uncomplicated (principal); F14.20 Cocaine dependence, uncomplicated; F19.282 Other psychoactive substance dependence with psychoactive substance-induced sleep disorder; F12.20 Cannabis dependence, uncomplicated; F31.9 Bipolar disorder, unspecified; F43.10 Post-traumatic stress disorder, unspecified; F41.9 Anxiety disorder, unspecified; F19.24 Other psychoactive substance dependence with psychoactive substance-induced mood disorder; Z21 Asymptomatic human immunodeficiency virus [HIV] infection status; K21.9 Gastro-esophageal reflux disease without esophagitis; R76.11 Nonspecific reaction to tuberculin skin test without active tuberculosis; Z86.19 Personal history of other infectious and parasitic diseases; Z88.6 Allergy status to analgesic agent; Z88.8 Allergy status to other drugs, medicaments and biological substances; Z91.018 Allergy to other foods
CPT/HCPCS: 36415; 71046-TC-FY; 80053; 85027; 86593; 86780; C9803; U0003; U0005

== ENCOUNTER 2020-12-16 13:42 | Inpatient (IN) | payer OTHER ==
[2020-12-16] MEDS ORDERED: guaiFENesin 200 MG/10 ML 10 ML UNIT-DOSE CUPS PO PRN (19:12)
[2020-12-16] MEDS ORDERED: P-EPHED 60MG/TRIPROLIDI 2.5MG TABLET PO PRN (19:12)
[2020-12-16] MEDS ORDERED: LOPERAMIDE HCL 2 MG CAPSULE PO PRN (19:12)
[2020-12-16] MEDS ORDERED: MAGNESIUM HYDROX 2400MG/30ML ORAL SUSPENSION 30 ML CUP PO PRN (19:12)
[2020-12-16] MEDS ORDERED: MAG HYDROX/AL HYDROX/SIMETH 30 ML UNIT-DOSE CUP PO PRN (19:12)
[2020-12-16] MEDS ORDERED: MENTHOL/PHENOL 1 EACH UD MM PRN (19:12)
[2020-12-16] MEDS ORDERED: NICOTINE POLACRILEX 2 MG GUM BUC PRN (19:12)
[2020-12-16] MEDS ORDERED: hydrOXYzine PAMOATE 25 MG CAPSULE (FP) PO PRN (19:12)
[2020-12-16] MEDS ORDERED: MAGNESIUM CITRATE 300 ML BOTTLE PO PRN (19:12)
[2020-12-16] MEDS: THIAMINE HCL 100 MG TABLET (FP) PO SCH (21:32)
[2020-12-16] MEDS ORDERED: MELATONIN 5 MG TABLETS PO SCH (22:00)
[2020-12-16] MEDS ORDERED: PT OWN MED DRAWER 7, Y5N ONE (22:07)
[2020-12-16] MEDS ORDERED: traZODone HCL 100 MG TABLET (FP) PO ONE (22:37)
[2020-12-17] MEDS: PRENATAL VITAMINS W/ FOLIC ACID TABLET (FP) PO SCH (10:12)
[2020-12-17 12:02] LABS: HIV INTERPRETATION NEGATIVE (NEGATIVE)
[2020-12-17] MEDS: hydrOXYzine PAMOATE 50 MG CAPSULE (FP) PO PRN (14:26)
[2020-12-17] MEDS ORDERED: PT OWN MED DRAWER 7, Y5N ONE (21:04)
[2020-12-17] MEDS: ZIPRASIDONE 40 MG CAPSULE PO SCH (21:05)
[2020-12-17] MEDS: traZODone HCL 100 MG TABLET (FP) PO SCH (21:05)
[2020-12-17] MEDS: THIAMINE HCL 100 MG TABLET (FP) PO SCH (21:05)
[2020-12-18] MEDS: PRENATAL VITAMINS W/ FOLIC ACID TABLET (FP) PO SCH (09:44)
[2020-12-18] MEDS: traZODone HCL 100 MG TABLET (FP) PO SCH (21:48)
[2020-12-18] MEDS: ZIPRASIDONE 40 MG CAPSULE PO SCH (21:48)
[2020-12-18] MEDS ORDERED: PT OWN MED DRAWER 7, Y5N ONE (21:48)
[2020-12-18] MEDS: THIAMINE HCL 100 MG TABLET (FP) PO SCH (21:48)
[2020-12-19] MEDS: PRENATAL VITAMINS W/ FOLIC ACID TABLET (FP) PO SCH (10:29)
[2020-12-19] MEDS: hydrOXYzine PAMOATE 50 MG CAPSULE (FP) PO PRN ×2 (12:44→21:51)
[2020-12-19] MEDS: THIAMINE HCL 100 MG TABLET (FP) PO SCH (21:51)
[2020-12-19] MEDS: ZIPRASIDONE 40 MG CAPSULE PO SCH (21:51)
[2020-12-19] MEDS: traZODone HCL 100 MG TABLET (FP) PO SCH (21:51)
[2020-12-20] MEDS ORDERED: PT OWN MED DRAWER 7, Y5N ONE ×2 (09:35→20:05)
[2020-12-20] MEDS: PRENATAL VITAMINS W/ FOLIC ACID TABLET (FP) PO SCH (10:13)
[2020-12-20] MEDS: hydrOXYzine PAMOATE 50 MG CAPSULE (FP) PO PRN ×2 (10:14→21:19)
[2020-12-20] MEDS: ZIPRASIDONE 40 MG CAPSULE PO SCH (21:19)
[2020-12-20] MEDS: THIAMINE HCL 100 MG TABLET (FP) PO SCH (21:19)
[2020-12-20] MEDS: traZODone HCL 100 MG TABLET (FP) PO SCH (21:19)
[2020-12-21] MEDS: PRENATAL VITAMINS W/ FOLIC ACID TABLET (FP) PO SCH (09:47)
[2020-12-21] MEDS: hydrOXYzine PAMOATE 50 MG CAPSULE (FP) PO PRN (09:47)
[2020-12-21] MEDS ORDERED: PT OWN MED DRAWER 7, Y5N ONE (19:30)
[2020-12-21] MEDS: THIAMINE HCL 100 MG TABLET (FP) PO SCH (21:42)
[2020-12-21] MEDS: traZODone HCL 100 MG TABLET (FP) PO SCH (21:42)
[2020-12-21] MEDS: ZIPRASIDONE 40 MG CAPSULE PO SCH (21:42)
[2020-12-22] MEDS: PRENATAL VITAMINS W/ FOLIC ACID TABLET (FP) PO SCH (09:53)
[2020-12-22] MEDS: hydrOXYzine PAMOATE 50 MG CAPSULE (FP) PO PRN (16:50)
[2020-12-22] MEDS ORDERED: PT OWN MED DRAWER 7, Y5N ONE (19:00)
[2020-12-22] MEDS: THIAMINE HCL 100 MG TABLET (FP) PO SCH (21:50)
[2020-12-22] MEDS: traZODone HCL 100 MG TABLET (FP) PO SCH (21:50)
[2020-12-22] MEDS: ZIPRASIDONE 40 MG CAPSULE PO SCH (21:50)
[2020-12-23] MEDS: PRENATAL VITAMINS W/ FOLIC ACID TABLET (FP) PO SCH (09:52)
[2020-12-23] MEDS: NALTREXONE HCL 50 MG TABLET PO SCH (13:47)
[2020-12-23] MEDS: hydrOXYzine PAMOATE 50 MG CAPSULE (FP) PO PRN ×2 (13:51→21:07)
[2020-12-23] MEDS: BICTEGRAV/EMTRICIT/TENOFOV (BIKTARVY) 50-200-25 MG TABLET PO SCH (14:28)
[2020-12-23] MEDS ORDERED: PT OWN MED DRAWER 7, Y5N ONE (19:29)
[2020-12-23] MEDS: THIAMINE HCL 100 MG TABLET (FP) PO SCH (21:07)
[2020-12-23] MEDS: ZIPRASIDONE 40 MG CAPSULE PO SCH (21:07)
[2020-12-23] MEDS: traZODone HCL 100 MG TABLET (FP) PO SCH (21:07)
[2020-12-24] MEDS: PRENATAL VITAMINS W/ FOLIC ACID TABLET (FP) PO SCH (10:19)
[2020-12-24] MEDS: NALTREXONE HCL 50 MG TABLET PO SCH (10:20)
[2020-12-24] MEDS: BICTEGRAV/EMTRICIT/TENOFOV (BIKTARVY) 50-200-25 MG TABLET PO SCH (10:20)
[2020-12-24] MEDS: hydrOXYzine PAMOATE 50 MG CAPSULE (FP) PO PRN (17:05)
[2020-12-24] MEDS ORDERED: PT OWN MED DRAWER 7, Y5N ONE (20:10)
[2020-12-24] MEDS: ZIPRASIDONE 40 MG CAPSULE PO SCH (21:40)
[2020-12-24] MEDS: THIAMINE HCL 100 MG TABLET (FP) PO SCH (21:40)
[2020-12-24] MEDS: traZODone HCL 100 MG TABLET (FP) PO SCH (21:40)
[2020-12-25] MEDS ORDERED: PT OWN MED DRAWER 7, Y5N ONE ×2 (08:30→18:50)
[2020-12-25] MEDS: PRENATAL VITAMINS W/ FOLIC ACID TABLET (FP) PO SCH (09:47)
[2020-12-25] MEDS: BICTEGRAV/EMTRICIT/TENOFOV (BIKTARVY) 50-200-25 MG TABLET PO SCH (09:48)
[2020-12-25] MEDS: NALTREXONE HCL 50 MG TABLET PO SCH (09:48)
[2020-12-25] MEDS ORDERED: COVID-19 VAC,AD26(JANSSEN)/PF 0.5 ML IM ONE (12:00)
[2020-12-25] MEDS: hydrOXYzine PAMOATE 50 MG CAPSULE (FP) PO PRN ×2 (13:49→19:48)
[2020-12-25] MEDS: THIAMINE HCL 100 MG TABLET (FP) PO SCH (21:31)
[2020-12-25] MEDS: traZODone HCL 100 MG TABLET (FP) PO SCH (21:31)
[2020-12-25] MEDS: ZIPRASIDONE 40 MG CAPSULE PO SCH (21:31)
[2020-12-26] MEDS: BICTEGRAV/EMTRICIT/TENOFOV (BIKTARVY) 50-200-25 MG TABLET PO SCH (09:59)
[2020-12-26] MEDS: PRENATAL VITAMINS W/ FOLIC ACID TABLET (FP) PO SCH (10:00)
[2020-12-26] MEDS: NALTREXONE HCL 50 MG TABLET PO SCH (10:00)
[2020-12-26] MEDS: hydrOXYzine PAMOATE 50 MG CAPSULE (FP) PO PRN ×2 (10:47→21:42)
[2020-12-26] MEDS: IBUPROFEN 400 MG TABLET (FP) PO PRN ×2 (15:20→21:42)
[2020-12-26] MEDS ORDERED: PT OWN MED DRAWER 7, Y5N ONE (19:12)
[2020-12-26] MEDS: THIAMINE HCL 100 MG TABLET (FP) PO SCH (21:41)
[2020-12-26] MEDS: traZODone HCL 100 MG TABLET (FP) PO SCH (21:41)
[2020-12-26] MEDS: ZIPRASIDONE 40 MG CAPSULE PO SCH (21:41)
[2020-12-27] MEDS ORDERED: PT OWN MED DRAWER 7, Y5N ONE ×2 (08:48→18:17)
[2020-12-27] MEDS: PRENATAL VITAMINS W/ FOLIC ACID TABLET (FP) PO SCH (10:03)
[2020-12-27] MEDS: BICTEGRAV/EMTRICIT/TENOFOV (BIKTARVY) 50-200-25 MG TABLET PO SCH (10:04)
[2020-12-27] MEDS: ZIPRASIDONE 40 MG CAPSULE PO SCH (21:22)
[2020-12-27] MEDS: traZODone HCL 100 MG TABLET (FP) PO SCH (21:22)
[2020-12-27] MEDS: THIAMINE HCL 100 MG TABLET (FP) PO SCH (21:22)
[2020-12-27] MEDS: hydrOXYzine PAMOATE 50 MG CAPSULE (FP) PO PRN (21:23)
[2020-12-28] MEDS: PRENATAL VITAMINS W/ FOLIC ACID TABLET (FP) PO SCH (09:58)
[2020-12-28] MEDS: BICTEGRAV/EMTRICIT/TENOFOV (BIKTARVY) 50-200-25 MG TABLET PO SCH (09:59)
[2020-12-28] MEDS: hydrOXYzine PAMOATE 50 MG CAPSULE (FP) PO PRN (21:25)
[2020-12-28] MEDS: traZODone HCL 100 MG TABLET (FP) PO SCH (21:25)
[2020-12-28] MEDS: ZIPRASIDONE 40 MG CAPSULE PO SCH (21:25)
[2020-12-28] MEDS: THIAMINE HCL 100 MG TABLET (FP) PO SCH (21:25)
[2020-12-29] MEDS: PRENATAL VITAMINS W/ FOLIC ACID TABLET (FP) PO SCH (10:00)
[2020-12-29] MEDS: BICTEGRAV/EMTRICIT/TENOFOV (BIKTARVY) 50-200-25 MG TABLET PO SCH (10:01)
[2020-12-29] MEDS: hydrOXYzine PAMOATE 50 MG CAPSULE (FP) PO PRN (16:30)
[2020-12-29] MEDS: THIAMINE HCL 100 MG TABLET (FP) PO SCH (21:30)
[2020-12-29] MEDS: ZIPRASIDONE 40 MG CAPSULE PO SCH (21:30)
[2020-12-29] MEDS: traZODone HCL 100 MG TABLET (FP) PO SCH (21:30)
[2020-12-30 07:17] VITALS: BP 120/78; PULSE 61; TEMP 97.3
[2020-12-30] MEDS ORDERED: PT OWN MED DRAWER 7, Y5N ONE (08:35)
[2020-12-30] MEDS: PRENATAL VITAMINS W/ FOLIC ACID TABLET (FP) PO SCH (09:09)
[2020-12-30] MEDS: BICTEGRAV/EMTRICIT/TENOFOV (BIKTARVY) 50-200-25 MG TABLET PO SCH (09:09)
== END 2020-12-30 09:13 | disposition home or self-care (01) | DRG 895 ==
LOC: YASAS 13:42 → Y5N 18:48
PROVIDERS: ADMIT Allergy & Immunology; ATTEND Allergy & Immunology
PROC: HZ42ZZZ Group Counseling for Substance Abuse Treatment, Cognitive-Behavioral (ICD-10-PCS; principal; 2020-12-16)
DX: F10.20 Alcohol dependence, uncomplicated (principal); F14.20 Cocaine dependence, uncomplicated; F12.20 Cannabis dependence, uncomplicated; F31.9 Bipolar disorder, unspecified; F41.9 Anxiety disorder, unspecified; Z21 Asymptomatic human immunodeficiency virus [HIV] infection status; Z86.11 Personal history of tuberculosis; Z86.19 Personal history of other infectious and parasitic diseases; Z88.6 Allergy status to analgesic agent; Z88.8 Allergy status to other drugs, medicaments and biological substances; Z91.018 Allergy to other foods
CPT/HCPCS: 0031A; 36415; 87389; 91303

== ENCOUNTER 2021-02-13 20:29 | Inpatient (IN) | payer OTHER ==
[2021-02-13] MEDS ORDERED: IBUPROFEN 400 MG TABLET (FP) PO PRN (22:17)
[2021-02-13] MEDS ORDERED: MENTHOL/PHENOL 1 EACH UD MM PRN (22:17)
[2021-02-13] MEDS ORDERED: MAG HYDROX/AL HYDROX/SIMETH 30 ML UNIT-DOSE CUP PO PRN (22:17)
[2021-02-13] MEDS ORDERED: NICOTINE 10 MG CARTRIDGE (INHALER) IH PRN (22:17)
[2021-02-13] MEDS ORDERED: ACETAMINOPHEN 325 MG TABLET (FP) PO PRN ×2 (22:17)
[2021-02-13] MEDS ORDERED: MAGNESIUM HYDROX 2400MG/30ML ORAL SUSPENSION 30 ML CUP PO PRN (22:17)
[2021-02-13] MEDS ORDERED: BISMUTH SUBSALICYLATE 524 MG/30 ML PO PRN (22:17)
[2021-02-13] MEDS ORDERED: METHOCARBAMOL 500 MG TABLET PO PRN (22:17)
[2021-02-13] MEDS ORDERED: ONDANSETRON *ODT* 4 MG TABLET SL PRN (22:17)
[2021-02-13] MEDS ORDERED: MAGNESIUM CITRATE 300 ML BOTTLE PO PRN (22:17)
[2021-02-13 23:07] VITALS: BMI 27.7
[2021-02-13] MEDS ORDERED: cloNIDine HCL 0.1 MG TABLET PO ONE (23:44)
[2021-02-14] MEDS ORDERED: LORazepam 1 MG TABLET PO SCH (05:00)
[2021-02-14] MEDS ORDERED: LORazepam 1 MG TABLET PO PRN (06:23)
[2021-02-14] MEDS: hydrOXYzine PAMOATE 25 MG CAPSULE (FP) PO SCH ×2 (07:28→10:28)
[2021-02-14] MEDS: diazePAM 5 MG TABLET PO PRN (08:04)
[2021-02-14] MEDS: diazePAM 5 MG TABLET PO SCH ×3 (10:25→22:29)
[2021-02-14] MEDS: PRENATAL VITAMINS W/ FOLIC ACID TABLET (FP) PO SCH (10:25)
[2021-02-14 12:37] LABS: BLOOD UREA NITROGEN 13.5 mg/dL (7-18)
[2021-02-14 12:38] LABS: ALBUMIN 3.8 g/dl (3.4-5.0); CALCIUM 8.8 mg/dL (8.5-10.1)
[2021-02-14 12:39] LABS: HEMATOCRIT 44.2 % (35.4-49); HEMOGLOBIN 15.2 GM/dL (11.7-16.9); MCH 30.7 pg (25.7-33.7); MCHC 34.4 g/dl (32.0-35.9); MEAN CELL VOLUME 89.1 fl (80-96); MEAN PLT VOLUME 8.1 fl (7.5-11.1); PLATELET COUNT 251 10^3/uL (134-434); RBC 4.96 M/mm3 (4.00-5.60)
[2021-02-14 12:42] LABS: BILIRUBIN,TOTAL 0.8 mg/dL (0.2-1); CREATININE 1.2 mg/dL (0.55-1.3)
[2021-02-14 12:43] LABS: TOT PROT 7.3 g/dl (6.4-8.2)
[2021-02-14] MEDS: BICTEGRAV/EMTRICIT/TENOFOV (BIKTARVY) 50-200-25 MG TABLET PO SCH (17:58)
[2021-02-14] MEDS: traZODone HCL 100 MG TABLET (FP) PO SCH (22:30)
[2021-02-14] MEDS: MELATONIN 5 MG TABLETS PO SCH (22:30)
[2021-02-14] MEDS: THIAMINE HCL 100 MG TABLET (FP) PO SCH (22:30)
[2021-02-14] MEDS: ZIPRASIDONE 40 MG CAPSULE PO SCH (23:44)
[2021-02-15] MEDS ORDERED: LORazepam 1 MG TABLET PO SCH (05:00)
[2021-02-15] MEDS: diazePAM 5 MG TABLET PO SCH ×4 (06:34→22:38)
[2021-02-15] MEDS: BICTEGRAV/EMTRICIT/TENOFOV (BIKTARVY) 50-200-25 MG TABLET PO SCH (07:13)
[2021-02-15] MEDS: PRENATAL VITAMINS W/ FOLIC ACID TABLET (FP) PO SCH (10:39)
[2021-02-15] MEDS: traZODone HCL 100 MG TABLET (FP) PO SCH (22:37)
[2021-02-15] MEDS: THIAMINE HCL 100 MG TABLET (FP) PO SCH (22:38)
[2021-02-15] MEDS: MELATONIN 5 MG TABLETS PO SCH (22:40)
[2021-02-15] MEDS: ZIPRASIDONE 40 MG CAPSULE PO SCH (23:07)
[2021-02-16] MEDS ORDERED: LORazepam 0.5 MG TABLET PO PRN
[2021-02-16] MEDS ORDERED: LORazepam 0.5 MG TABLET PO SCH (05:00)
[2021-02-16] MEDS: diazePAM 5 MG TABLET PO SCH ×3 (05:41→22:26)
[2021-02-16] MEDS: BICTEGRAV/EMTRICIT/TENOFOV (BIKTARVY) 50-200-25 MG TABLET PO SCH (10:46)
[2021-02-16] MEDS: PRENATAL VITAMINS W/ FOLIC ACID TABLET (FP) PO SCH (10:46)
[2021-02-16] MEDS: diazePAM 5 MG TABLET PO PRN (10:47)
[2021-02-16] MEDS: hydrOXYzine PAMOATE 50 MG CAPSULE (FP) PO PRN (18:37)
[2021-02-16] MEDS: THIAMINE HCL 100 MG TABLET (FP) PO SCH (22:25)
[2021-02-16] MEDS: MELATONIN 5 MG TABLETS PO SCH (22:25)
[2021-02-16] MEDS: ZIPRASIDONE 40 MG CAPSULE PO SCH (22:26)
[2021-02-16] MEDS: traZODone HCL 100 MG TABLET (FP) PO SCH (22:26)
[2021-02-17] MEDS ORDERED: LORazepam 0.5 MG TABLET PO ONE (05:00)
[2021-02-17] MEDS: diazePAM 5 MG TABLET PO SCH ×2 (05:31→18:24)
[2021-02-17] MEDS: BICTEGRAV/EMTRICIT/TENOFOV (BIKTARVY) 50-200-25 MG TABLET PO SCH (07:02)
[2021-02-17] MEDS: PRENATAL VITAMINS W/ FOLIC ACID TABLET (FP) PO SCH (10:12)
[2021-02-17] MEDS: MELATONIN 5 MG TABLETS PO SCH (22:11)
[2021-02-17] MEDS: traZODone HCL 100 MG TABLET (FP) PO SCH (22:11)
[2021-02-17] MEDS: ZIPRASIDONE 40 MG CAPSULE PO SCH (22:11)
[2021-02-17] MEDS: THIAMINE HCL 100 MG TABLET (FP) PO SCH (22:11)
[2021-02-18] MEDS ORDERED: diazePAM 5 MG TABLET PO ONE (06:00)
[2021-02-18] MEDS: hydrOXYzine PAMOATE 50 MG CAPSULE (FP) PO PRN (10:14)
[2021-02-18] MEDS: BICTEGRAV/EMTRICIT/TENOFOV (BIKTARVY) 50-200-25 MG TABLET PO SCH (10:15)
[2021-02-18] MEDS: PRENATAL VITAMINS W/ FOLIC ACID TABLET (FP) PO SCH (10:16)
[2021-02-18 12:55] VITALS: BP 117/78; PULSE 84; TEMP 96.9
== END 2021-02-18 14:04 | disposition other institution (70) | DRG 897 ==
LOC: YASAS 20:29 → Y3N 22:39
PROVIDERS: ADMIT Allergy & Immunology; ATTEND Allergy & Immunology
PROC: HZ2ZZZZ Detoxification Services for Substance Abuse Treatment (ICD-10-PCS; principal; 2021-02-13)
DX: F10.230 Alcohol dependence with withdrawal, uncomplicated (principal); F14.20 Cocaine dependence, uncomplicated; F12.20 Cannabis dependence, uncomplicated; F43.10 Post-traumatic stress disorder, unspecified; Z21 Asymptomatic human immunodeficiency virus [HIV] infection status; R76.11 Nonspecific reaction to tuberculin skin test without active tuberculosis; Z62.810 Personal history of physical and sexual abuse in childhood; Z86.59 Personal history of other mental and behavioral disorders; Z86.19 Personal history of other infectious and parasitic diseases; Z86.11 Personal history of tuberculosis; Z88.6 Allergy status to analgesic agent; Z88.8 Allergy status to other drugs, medicaments and biological substances; Z91.018 Allergy to other foods
CPT/HCPCS: 36415; 80053; 85027; 86593; 86780; 93005; 93010; C9803; J0735; Q0162; U0003; U0005

== ENCOUNTER 2021-02-18 13:53 | Inpatient (IN) | payer OTHER ==
[2021-02-18 14:19] VITALS: BP 124/80; PULSE 78
[2021-02-18] MEDS ORDERED: P-EPHED 60MG/TRIPROLIDI 2.5MG TABLET PO PRN (14:26)
[2021-02-18] MEDS ORDERED: guaiFENesin 200 MG/10 ML 10 ML UNIT-DOSE CUPS PO PRN (14:26)
[2021-02-18] MEDS ORDERED: MAGNESIUM HYDROX 2400MG/30ML ORAL SUSPENSION 30 ML CUP PO PRN (14:26)
[2021-02-18] MEDS ORDERED: MAG HYDROX/AL HYDROX/SIMETH 30 ML UNIT-DOSE CUP PO PRN (14:26)
[2021-02-18] MEDS ORDERED: NICOTINE 7 MG/24 HOURS TOPICAL PATCH TD PRN (14:26)
[2021-02-18] MEDS ORDERED: IBUPROFEN 400 MG TABLET (FP) PO PRN (14:26)
[2021-02-18] MEDS ORDERED: NICOTINE 10 MG CARTRIDGE (INHALER) IH PRN (14:26)
[2021-02-18] MEDS ORDERED: MAGNESIUM CITRATE 300 ML BOTTLE PO PRN (14:26)
[2021-02-18] MEDS ORDERED: MENTHOL/PHENOL 1 EACH UD MM PRN (14:26)
[2021-02-18] MEDS ORDERED: LOPERAMIDE HCL 2 MG CAPSULE PO PRN (14:26)
[2021-02-18] MEDS ORDERED: hydrOXYzine PAMOATE 25 MG CAPSULE (FP) PO SCH (18:00)
[2021-02-18] MEDS ORDERED: traZODone HCL 100 MG TABLET (FP) PO SCH (22:00)
[2021-02-18] MEDS ORDERED: ZIPRASIDONE 40 MG CAPSULE PO SCH (22:00)
[2021-02-18] MEDS ORDERED: MELATONIN 5 MG TABLETS PO SCH (22:00)
[2021-02-18] MEDS ORDERED: THIAMINE HCL 100 MG TABLET (FP) PO SCH (22:00)
[2021-02-19] MEDS ORDERED: PRENATAL VITAMINS W/ FOLIC ACID TABLET (FP) PO SCH (10:00)
[2021-02-19] MEDS ORDERED: BICTEGRAV/EMTRICIT/TENOFOV (BIKTARVY) 50-200-25 MG TABLET PO SCH (10:00)
== END 2021-02-19 12:35 | disposition left against medical advice (07) | DRG 894 ==
LOC: YASAS 13:53 → Y3W 13:54
PROVIDERS: ADMIT Allergy & Immunology; ATTEND Allergy & Immunology
PROC: HZ42ZZZ Group Counseling for Substance Abuse Treatment, Cognitive-Behavioral (ICD-10-PCS; principal; 2021-02-18)
DX: F10.20 Alcohol dependence, uncomplicated (principal); F14.20 Cocaine dependence, uncomplicated; F12.20 Cannabis dependence, uncomplicated; F43.10 Post-traumatic stress disorder, unspecified; Z21 Asymptomatic human immunodeficiency virus [HIV] infection status; Z86.59 Personal history of other mental and behavioral disorders; Z88.6 Allergy status to analgesic agent; Z88.8 Allergy status to other drugs, medicaments and biological substances; Z91.013 Allergy to seafood
CPT/HCPCS: 93005; 93010

== ENCOUNTER 2021-04-23 11:42 | Inpatient (IN) | payer OTHER ==
[2021-04-23 12:36] VITALS: BMI 27.7
[2021-04-23] MEDS ORDERED: MAG HYDROX/AL HYDROX/SIMETH 30 ML UNIT-DOSE CUP PO PRN (12:56)
[2021-04-23] MEDS ORDERED: BISMUTH SUBSALICYLATE 524 MG/30 ML PO PRN (12:56)
[2021-04-23] MEDS ORDERED: diazePAM 5 MG TABLET PO PRN (12:56)
[2021-04-23] MEDS ORDERED: MAGNESIUM CITRATE 300 ML BOTTLE PO PRN (12:56)
[2021-04-23] MEDS ORDERED: MAGNESIUM HYDROX 2400MG/30ML ORAL SUSPENSION 30 ML CUP PO PRN (12:56)
[2021-04-23] MEDS ORDERED: MENTHOL/PHENOL 1 EACH UD MM PRN (12:56)
[2021-04-23] MEDS ORDERED: IBUPROFEN 400 MG TABLET (FP) PO PRN (12:56)
[2021-04-23] MEDS ORDERED: ONDANSETRON *ODT* 4 MG TABLET SL PRN (12:56)
[2021-04-23] MEDS ORDERED: METHOCARBAMOL 500 MG TABLET PO PRN (12:56)
[2021-04-23] MEDS: hydrOXYzine PAMOATE 25 MG CAPSULE (FP) PO SCH ×3 (14:17→22:23)
[2021-04-23] MEDS: PRENATAL VITAMINS W/ FOLIC ACID TABLET (FP) PO SCH (14:17)
[2021-04-23 16:27] LABS: HEMATOCRIT 45.2 % (35.4-49); HEMOGLOBIN 15.5 GM/dL (11.7-16.9); MCH 30.1 pg (25.7-33.7); MCHC 34.4 g/dl (32.0-35.9); MEAN CELL VOLUME 87.5 fl (80-96); MEAN PLT VOLUME 7.1 fl (7.5-11.1); PLATELET COUNT 270 10^3/uL (134-434); RBC 5.16 M/mm3 (4.00-5.60); RDW 12.4 % (11.9-15.9); WHITE BLOOD COUNT 4.4 K/mm3 (4.0-10.0)
[2021-04-23 16:30] LABS: ALBUMIN 3.1 g/dl (3.4-5.0); BLOOD UREA NITROGEN 6.6 mg/dL (7-18); CALCIUM 8.9 mg/dL (8.5-10.1)
[2021-04-23 16:34] LABS: CREATININE 1.2 mg/dL (0.55-1.3)
[2021-04-23 16:35] LABS: BILIRUBIN,TOTAL 0.5 mg/dL (0.2-1); TOT PROT 6.7 g/dl (6.4-8.2)
[2021-04-23] MEDS: diazePAM 5 MG TABLET PO SCH ×2 (17:22→22:23)
[2021-04-23] MEDS ORDERED: MELATONIN 5 MG TABLETS PO SCH (22:00)
[2021-04-23] MEDS: THIAMINE HCL 100 MG TABLET (FP) PO SCH (22:23)
[2021-04-24] MEDS: diazePAM 5 MG TABLET PO SCH ×4 (05:23→22:14)
[2021-04-24] MEDS: hydrOXYzine PAMOATE 25 MG CAPSULE (FP) PO SCH ×5 (05:23→22:14)
[2021-04-24] MEDS: PRENATAL VITAMINS W/ FOLIC ACID TABLET (FP) PO SCH (10:29)
[2021-04-24] MEDS: BICTEGRAV/EMTRICIT/TENOFOV (BIKTARVY) 50-200-25 MG TABLET PO SCH (15:44)
[2021-04-24] MEDS: ZIPRASIDONE 40 MG CAPSULE PO SCH (22:14)
[2021-04-24] MEDS: traZODone HCL 100 MG TABLET (FP) PO SCH (22:14)
[2021-04-24] MEDS: THIAMINE HCL 100 MG TABLET (FP) PO SCH (22:14)
[2021-04-25] MEDS: diazePAM 5 MG TABLET PO SCH ×3 (05:50→22:05)
[2021-04-25] MEDS: hydrOXYzine PAMOATE 25 MG CAPSULE (FP) PO SCH ×5 (05:50→22:05)
[2021-04-25] MEDS: PRENATAL VITAMINS W/ FOLIC ACID TABLET (FP) PO SCH (10:45)
[2021-04-25] MEDS: ZIPRASIDONE 40 MG CAPSULE PO SCH (22:05)
[2021-04-25] MEDS: traZODone HCL 100 MG TABLET (FP) PO SCH (22:05)
[2021-04-25] MEDS: THIAMINE HCL 100 MG TABLET (FP) PO SCH (22:05)
[2021-04-26] MEDS: hydrOXYzine PAMOATE 25 MG CAPSULE (FP) PO SCH ×5 (06:14→22:20)
[2021-04-26] MEDS: diazePAM 5 MG TABLET PO SCH ×2 (06:14→18:20)
[2021-04-26] MEDS: BICTEGRAV/EMTRICIT/TENOFOV (BIKTARVY) 50-200-25 MG TABLET PO SCH (08:22)
[2021-04-26] MEDS: PRENATAL VITAMINS W/ FOLIC ACID TABLET (FP) PO SCH (10:40)
[2021-04-26] MEDS: THIAMINE HCL 100 MG TABLET (FP) PO SCH (22:20)
[2021-04-26] MEDS: ZIPRASIDONE 40 MG CAPSULE PO SCH (22:20)
[2021-04-26] MEDS: traZODone HCL 100 MG TABLET (FP) PO SCH (22:22)
[2021-04-27] MEDS: hydrOXYzine PAMOATE 25 MG CAPSULE (FP) PO SCH ×5 (05:44→21:57)
[2021-04-27] MEDS ORDERED: diazePAM 5 MG TABLET PO ONE (06:00)
[2021-04-27] MEDS: BICTEGRAV/EMTRICIT/TENOFOV (BIKTARVY) 50-200-25 MG TABLET PO SCH ×2 (08:15→10:19)
[2021-04-27] MEDS: PRENATAL VITAMINS W/ FOLIC ACID TABLET (FP) PO SCH (10:19)
[2021-04-27] MEDS: traZODone HCL 100 MG TABLET (FP) PO SCH (21:57)
[2021-04-27] MEDS: ZIPRASIDONE 40 MG CAPSULE PO SCH (21:57)
[2021-04-27] MEDS: THIAMINE HCL 100 MG TABLET (FP) PO SCH (21:58)
[2021-04-28] MEDS: hydrOXYzine PAMOATE 25 MG CAPSULE (FP) PO SCH ×2 (07:33→10:17)
[2021-04-28] MEDS: BICTEGRAV/EMTRICIT/TENOFOV (BIKTARVY) 50-200-25 MG TABLET PO SCH (09:04)
[2021-04-28 09:29] VITALS: BP 109/70; PULSE 81; TEMP 96.9
[2021-04-28] MEDS: PRENATAL VITAMINS W/ FOLIC ACID TABLET (FP) PO SCH (10:17)
== END 2021-04-28 12:38 | disposition other institution (70) | DRG 897 ==
LOC: YASAS 11:42 → Y3N 13:18
PROVIDERS: ADMIT Allergy & Immunology; ATTEND Allergy & Immunology
PROC: HZ2ZZZZ Detoxification Services for Substance Abuse Treatment (ICD-10-PCS; principal; 2021-04-23)
DX: F10.230 Alcohol dependence with withdrawal, uncomplicated (principal); F14.20 Cocaine dependence, uncomplicated; F19.282 Other psychoactive substance dependence with psychoactive substance-induced sleep disorder; F12.20 Cannabis dependence, uncomplicated; F19.24 Other psychoactive substance dependence with psychoactive substance-induced mood disorder; F31.9 Bipolar disorder, unspecified; F43.10 Post-traumatic stress disorder, unspecified; Z21 Asymptomatic human immunodeficiency virus [HIV] infection status; R73.9 Hyperglycemia, unspecified; Z62.810 Personal history of physical and sexual abuse in childhood; Z86.59 Personal history of other mental and behavioral disorders; Z86.19 Personal history of other infectious and parasitic diseases; Z88.6 Allergy status to analgesic agent; Z88.8 Allergy status to other drugs, medicaments and biological substances; Z91.018 Allergy to other foods
CPT/HCPCS: 36415; 80053; 82947; 83036; 85027; 86593; 86780; C9803; U0003; U0005

== ENCOUNTER 2021-04-28 12:47 | Inpatient (IN) | payer OTHER ==
[2021-04-28] MEDS ORDERED: MAGNESIUM HYDROX 2400MG/30ML ORAL SUSPENSION 30 ML CUP PO PRN (15:32)
[2021-04-28] MEDS ORDERED: IBUPROFEN 400 MG TABLET (FP) PO PRN (15:32)
[2021-04-28] MEDS ORDERED: LOPERAMIDE HCL 2 MG CAPSULE PO PRN (15:32)
[2021-04-28] MEDS ORDERED: MAGNESIUM CITRATE 300 ML BOTTLE PO PRN (15:32)
[2021-04-28] MEDS ORDERED: MENTHOL/PHENOL 1 EACH UD MM PRN (15:32)
[2021-04-28] MEDS ORDERED: MAG HYDROX/AL HYDROX/SIMETH 30 ML UNIT-DOSE CUP PO PRN (15:32)
[2021-04-28] MEDS ORDERED: guaiFENesin 200 MG/10 ML 10 ML UNIT-DOSE CUPS PO PRN (15:32)
[2021-04-28] MEDS: MELATONIN 5 MG TABLETS PO SCH (21:20)
[2021-04-28] MEDS: THIAMINE HCL 100 MG TABLET (FP) PO SCH (21:20)
[2021-04-29] MEDS: PRENATAL VITAMINS W/ FOLIC ACID TABLET (FP) PO SCH (10:08)
[2021-04-29] MEDS: BICTEGRAV/EMTRICIT/TENOFOV (BIKTARVY) 50-200-25 MG TABLET PO SCH (10:08)
[2021-04-29] MEDS: ZIPRASIDONE 40 MG CAPSULE PO SCH (21:17)
[2021-04-29] MEDS: MELATONIN 5 MG TABLETS PO SCH (21:17)
[2021-04-29] MEDS: THIAMINE HCL 100 MG TABLET (FP) PO SCH (21:17)
[2021-04-29] MEDS: traZODone HCL 100 MG TABLET (FP) PO SCH (21:18)
[2021-04-30] MEDS: BICTEGRAV/EMTRICIT/TENOFOV (BIKTARVY) 50-200-25 MG TABLET PO SCH (10:11)
[2021-04-30] MEDS: PRENATAL VITAMINS W/ FOLIC ACID TABLET (FP) PO SCH (10:12)
[2021-04-30] MEDS: THIAMINE HCL 100 MG TABLET (FP) PO SCH (21:23)
[2021-04-30] MEDS: ZIPRASIDONE 40 MG CAPSULE PO SCH (21:23)
[2021-04-30] MEDS: traZODone HCL 100 MG TABLET (FP) PO SCH (21:23)
[2021-04-30] MEDS: MELATONIN 5 MG TABLETS PO SCH (21:23)
[2021-05-01] MEDS: PRENATAL VITAMINS W/ FOLIC ACID TABLET (FP) PO SCH (10:11)
[2021-05-01] MEDS: BICTEGRAV/EMTRICIT/TENOFOV (BIKTARVY) 50-200-25 MG TABLET PO SCH (10:11)
[2021-05-01] MEDS: ZIPRASIDONE 40 MG CAPSULE PO SCH (21:20)
[2021-05-01] MEDS: traZODone HCL 100 MG TABLET (FP) PO SCH (21:20)
[2021-05-01] MEDS: MELATONIN 5 MG TABLETS PO SCH (21:20)
[2021-05-01] MEDS: THIAMINE HCL 100 MG TABLET (FP) PO SCH (21:20)
[2021-05-02] MEDS: BICTEGRAV/EMTRICIT/TENOFOV (BIKTARVY) 50-200-25 MG TABLET PO SCH (09:55)
[2021-05-02] MEDS: PRENATAL VITAMINS W/ FOLIC ACID TABLET (FP) PO SCH (09:55)
[2021-05-02] MEDS: MELATONIN 5 MG TABLETS PO SCH (21:39)
[2021-05-02] MEDS: ZIPRASIDONE 40 MG CAPSULE PO SCH (21:39)
[2021-05-02] MEDS: traZODone HCL 100 MG TABLET (FP) PO SCH (21:39)
[2021-05-02] MEDS: THIAMINE HCL 100 MG TABLET (FP) PO SCH (21:39)
[2021-05-03] MEDS: BICTEGRAV/EMTRICIT/TENOFOV (BIKTARVY) 50-200-25 MG TABLET PO SCH (09:42)
[2021-05-03] MEDS: PRENATAL VITAMINS W/ FOLIC ACID TABLET (FP) PO SCH (09:42)
[2021-05-03] MEDS: MELATONIN 5 MG TABLETS PO SCH (21:16)
[2021-05-03] MEDS: ZIPRASIDONE 40 MG CAPSULE PO SCH (21:16)
[2021-05-03] MEDS: THIAMINE HCL 100 MG TABLET (FP) PO SCH (21:16)
[2021-05-03] MEDS: traZODone HCL 100 MG TABLET (FP) PO SCH (21:16)
[2021-05-04] MEDS: PRENATAL VITAMINS W/ FOLIC ACID TABLET (FP) PO SCH (09:54)
[2021-05-04] MEDS: BICTEGRAV/EMTRICIT/TENOFOV (BIKTARVY) 50-200-25 MG TABLET PO SCH (09:54)
[2021-05-04] MEDS: hydrOXYzine PAMOATE 25 MG CAPSULE (FP) PO PRN (18:50)
[2021-05-04] MEDS: traZODone HCL 100 MG TABLET (FP) PO SCH (21:23)
[2021-05-04] MEDS: THIAMINE HCL 100 MG TABLET (FP) PO SCH (21:23)
[2021-05-04] MEDS: MELATONIN 5 MG TABLETS PO SCH (21:23)
[2021-05-04] MEDS: ZIPRASIDONE 40 MG CAPSULE PO SCH (21:23)
[2021-05-05 08:10] VITALS: BP 94/63; PULSE 69; TEMP 97.9
[2021-05-05] MEDS: hydrOXYzine PAMOATE 25 MG CAPSULE (FP) PO PRN (09:51)
[2021-05-05] MEDS: BICTEGRAV/EMTRICIT/TENOFOV (BIKTARVY) 50-200-25 MG TABLET PO SCH (09:51)
[2021-05-05] MEDS: PRENATAL VITAMINS W/ FOLIC ACID TABLET (FP) PO SCH (09:52)
== END 2021-05-05 10:12 | disposition home or self-care (01) | DRG 895 ==
LOC: YASAS 12:47 → Y3W 12:48
PROVIDERS: ADMIT Allergy & Immunology; ATTEND Allergy & Immunology
PROC: HZ42ZZZ Group Counseling for Substance Abuse Treatment, Cognitive-Behavioral (ICD-10-PCS; principal; 2021-04-28)
DX: F10.20 Alcohol dependence, uncomplicated (principal); F14.20 Cocaine dependence, uncomplicated; F12.20 Cannabis dependence, uncomplicated; F31.9 Bipolar disorder, unspecified; F41.9 Anxiety disorder, unspecified; Z21 Asymptomatic human immunodeficiency virus [HIV] infection status; G47.00 Insomnia, unspecified; Z86.19 Personal history of other infectious and parasitic diseases; Z88.6 Allergy status to analgesic agent; Z88.8 Allergy status to other drugs, medicaments and biological substances; Z91.018 Allergy to other foods

== ENCOUNTER 2021-07-15 13:40 | Inpatient (IN) | payer OTHER ==
[2021-07-15] MEDS ORDERED: ONDANSETRON *ODT* 4 MG TABLET SL PRN (14:19)
[2021-07-15] MEDS ORDERED: MENTHOL/PHENOL 1 EACH UD MM PRN (14:19)
[2021-07-15] MEDS ORDERED: ACETAMINOPHEN 325 MG TABLET (FP) PO PRN ×2 (14:19)
[2021-07-15] MEDS ORDERED: IBUPROFEN 400 MG TABLET (FP) PO PRN (14:19)
[2021-07-15] MEDS ORDERED: MAG HYDROX/AL HYDROX/SIMETH 30 ML UNIT-DOSE CUP PO PRN (14:19)
[2021-07-15] MEDS ORDERED: MAGNESIUM CITRATE 300 ML BOTTLE PO PRN (14:19)
[2021-07-15] MEDS ORDERED: BISMUTH SUBSALICYLATE 262 MG/15 ML BTL PO PRN (14:19)
[2021-07-15] MEDS ORDERED: METHOCARBAMOL 500 MG TABLET PO PRN (14:19)
[2021-07-15] MEDS ORDERED: MAGNESIUM HYDROX 2400MG/30ML ORAL SUSPENSION 30 ML CUP PO PRN (14:19)
[2021-07-15 15:15] VITALS: BMI 30.3
[2021-07-15] MEDS ORDERED: diazePAM 5 MG TABLET ONE (15:57)
[2021-07-15] MEDS: diazePAM 5 MG TABLET PO PRN (16:07)
[2021-07-15] MEDS: diazePAM 5 MG TABLET PO SCH ×2 (17:59→22:10)
[2021-07-15] MEDS: PRENATAL VITAMINS W/ FOLIC ACID TABLET (FP) PO SCH (18:01)
[2021-07-15] MEDS: hydrOXYzine PAMOATE 25 MG CAPSULE (FP) PO SCH ×2 (18:01→22:10)
[2021-07-15] MEDS: traZODone HCL 100 MG TABLET (FP) PO SCH (22:10)
[2021-07-15] MEDS: ZIPRASIDONE 40 MG CAPSULE PO SCH (22:11)
[2021-07-15] MEDS: THIAMINE HCL 100 MG TABLET (FP) PO SCH (22:12)
[2021-07-15] MEDS: MELATONIN 5 MG TABLETS PO SCH (22:12)
[2021-07-16] MEDS: diazePAM 5 MG TABLET PO SCH ×4 (05:53→22:10)
[2021-07-16] MEDS: hydrOXYzine PAMOATE 25 MG CAPSULE (FP) PO SCH ×5 (05:53→21:52)
[2021-07-16] MEDS: BICTEGRAV/EMTRICIT/TENOFOV (BIKTARVY) 50-200-25 MG TABLET PO SCH (07:36)
[2021-07-16] MEDS: PRENATAL VITAMINS W/ FOLIC ACID TABLET (FP) PO SCH (10:15)
[2021-07-16 12:01] LABS: ALBUMIN 3.3 g/dl (3.4-5.0); CALCIUM 8.9 mg/dL (8.5-10.1)
[2021-07-16 12:05] LABS: HEMOGLOBIN 14.9 GM/dL (11.7-16.9); MCH 29.4 pg (25.7-33.7); MEAN CELL VOLUME 88.9 fl (80-96); MEAN PLT VOLUME 7.7 fl (7.5-11.1); PLATELET COUNT 268 10^3/uL (134-434); RBC 5.06 M/mm3 (4.00-5.60); RDW 13.7 % (11.9-15.9); WHITE BLOOD COUNT 5.5 K/mm3 (4.0-10.0)
[2021-07-16 12:07] LABS: BLOOD UREA NITROGEN 10.2 mg/dL (7-18); CREATININE 1.2 mg/dL (0.55-1.3)
[2021-07-16 12:08] LABS: BILIRUBIN,TOTAL 0.7 mg/dL (0.2-1); TOT PROT 6.3 g/dl (6.4-8.2)
[2021-07-16] MEDS: THIAMINE HCL 100 MG TABLET (FP) PO SCH (21:51)
[2021-07-16] MEDS: MELATONIN 5 MG TABLETS PO SCH (21:51)
[2021-07-16] MEDS: traZODone HCL 100 MG TABLET (FP) PO SCH (21:51)
[2021-07-16] MEDS: ZIPRASIDONE 40 MG CAPSULE PO SCH (21:51)
[2021-07-17] MEDS: diazePAM 5 MG TABLET PO SCH ×3 (06:16→22:17)
[2021-07-17] MEDS: hydrOXYzine PAMOATE 25 MG CAPSULE (FP) PO SCH ×5 (06:16→22:16)
[2021-07-17] MEDS: diazePAM 5 MG TABLET PO PRN (10:35)
[2021-07-17] MEDS: BICTEGRAV/EMTRICIT/TENOFOV (BIKTARVY) 50-200-25 MG TABLET PO SCH (10:47)
[2021-07-17] MEDS: PRENATAL VITAMINS W/ FOLIC ACID TABLET (FP) PO SCH (10:48)
[2021-07-17] MEDS: traZODone HCL 100 MG TABLET (FP) PO SCH (22:16)
[2021-07-17] MEDS: ZIPRASIDONE 40 MG CAPSULE PO SCH (22:16)
[2021-07-17] MEDS: THIAMINE HCL 100 MG TABLET (FP) PO SCH (22:16)
[2021-07-17] MEDS: MELATONIN 5 MG TABLETS PO SCH (22:18)
[2021-07-18] MEDS: diazePAM 5 MG TABLET PO SCH ×2 (05:44→18:34)
[2021-07-18] MEDS: hydrOXYzine PAMOATE 25 MG CAPSULE (FP) PO SCH ×5 (05:44→23:05)
[2021-07-18] MEDS: PRENATAL VITAMINS W/ FOLIC ACID TABLET (FP) PO SCH (10:28)
[2021-07-18] MEDS: diazePAM 5 MG TABLET PO PRN (10:29)
[2021-07-18] MEDS: BICTEGRAV/EMTRICIT/TENOFOV (BIKTARVY) 50-200-25 MG TABLET PO SCH (10:30)
[2021-07-18] MEDS ORDERED: metroNIDAZOLE 1% TOPICAL CREAM 60 GM/TUBE TP SCH (14:00)
[2021-07-18] MEDS: MELATONIN 5 MG TABLETS PO SCH (23:04)
[2021-07-18] MEDS: traZODone HCL 100 MG TABLET (FP) PO SCH (23:05)
[2021-07-18] MEDS: ZIPRASIDONE 40 MG CAPSULE PO SCH (23:05)
[2021-07-18] MEDS: THIAMINE HCL 100 MG TABLET (FP) PO SCH (23:05)
[2021-07-18] MEDS: metroNIDAZOLE 0.75% TOPICAL GEL 45 GM TUBE TP SCH (23:07)
[2021-07-18] MEDS: FAMOTIDINE 10 MG TABLET PO SCH (23:25)
[2021-07-19] MEDS: hydrOXYzine PAMOATE 25 MG CAPSULE (FP) PO SCH ×2 (05:59→09:38)
[2021-07-19] MEDS ORDERED: diazePAM 5 MG TABLET PO ONE (06:00)
[2021-07-19] MEDS: BICTEGRAV/EMTRICIT/TENOFOV (BIKTARVY) 50-200-25 MG TABLET PO SCH (08:37)
[2021-07-19] MEDS: FAMOTIDINE 10 MG TABLET PO SCH (09:38)
[2021-07-19] MEDS: metroNIDAZOLE 0.75% TOPICAL GEL 45 GM TUBE TP SCH (09:40)
[2021-07-19] MEDS: PRENATAL VITAMINS W/ FOLIC ACID TABLET (FP) PO SCH (09:40)
[2021-07-19 13:12] VITALS: BP 108/74; PULSE 84; TEMP 96.9
== END 2021-07-19 13:40 | disposition other institution (70) | DRG 897 ==
LOC: YASAS 13:40 → Y3N 15:23
PROVIDERS: ADMIT Allergy & Immunology; ATTEND Allergy & Immunology
PROC: HZ2ZZZZ Detoxification Services for Substance Abuse Treatment (ICD-10-PCS; principal; 2021-07-15)
DX: F10.230 Alcohol dependence with withdrawal, uncomplicated (principal); F14.20 Cocaine dependence, uncomplicated; F19.282 Other psychoactive substance dependence with psychoactive substance-induced sleep disorder; F13.10 Sedative, hypnotic or anxiolytic abuse, uncomplicated; F12.20 Cannabis dependence, uncomplicated; F19.24 Other psychoactive substance dependence with psychoactive substance-induced mood disorder; F31.9 Bipolar disorder, unspecified; F41.9 Anxiety disorder, unspecified; F43.10 Post-traumatic stress disorder, unspecified; Z21 Asymptomatic human immunodeficiency virus [HIV] infection status; G47.00 Insomnia, unspecified; K21.9 Gastro-esophageal reflux disease without esophagitis; Z62.810 Personal history of physical and sexual abuse in childhood; Z86.11 Personal history of tuberculosis; Z86.69 Personal history of other diseases of the nervous system and sense organs; Z91.51 Personal history of suicidal behavior; Z86.19 Personal history of other infectious and parasitic diseases; Z88.6 Allergy status to analgesic agent; Z88.8 Allergy status to other drugs, medicaments and biological substances; Z91.013 Allergy to seafood; Z56.0 Unemployment, unspecified; Z59.00 Homelessness unspecified
CPT/HCPCS: 36415; 80053; 85027; 86593; 86780; C9803; Q0162; U0003; U0005

== ENCOUNTER 2021-07-19 13:45 | Inpatient (IN) | payer OTHER ==
[2021-07-19] MEDS ORDERED: P-EPHED 60MG/TRIPROLIDI 2.5MG TABLET PO PRN (14:10)
[2021-07-19] MEDS ORDERED: MAGNESIUM CITRATE 300 ML BOTTLE PO PRN (14:10)
[2021-07-19] MEDS ORDERED: ACETAMINOPHEN 325 MG TABLET (FP) PO PRN (14:10)
[2021-07-19] MEDS ORDERED: LOPERAMIDE HCL 2 MG CAPSULE PO PRN (14:10)
[2021-07-19] MEDS ORDERED: IBUPROFEN 400 MG TABLET (FP) PO PRN (14:10)
[2021-07-19] MEDS ORDERED: MAGNESIUM HYDROX 2400MG/30ML ORAL SUSPENSION 30 ML CUP PO PRN (14:10)
[2021-07-19] MEDS ORDERED: MAG HYDROX/AL HYDROX/SIMETH 30 ML UNIT-DOSE CUP PO PRN (14:10)
[2021-07-19] MEDS ORDERED: MENTHOL/PHENOL 1 EACH UD MM PRN (14:10)
[2021-07-19] MEDS: traZODone HCL 100 MG TABLET (FP) PO SCH (21:11)
[2021-07-19] MEDS: hydrOXYzine PAMOATE 25 MG CAPSULE (FP) PO PRN (21:12)
[2021-07-19] MEDS: FAMOTIDINE 20 MG TABLET PO SCH (21:12)
[2021-07-19] MEDS: THIAMINE HCL 100 MG TABLET (FP) PO SCH (21:13)
[2021-07-19] MEDS ORDERED: MELATONIN 5 MG TABLETS PO SCH (22:00)
[2021-07-19] MEDS: ZIPRASIDONE 40 MG CAPSULE PO SCH (22:02)
[2021-07-20] MEDS: BICTEGRAV/EMTRICIT/TENOFOV (BIKTARVY) 50-200-25 MG TABLET PO SCH (10:17)
[2021-07-20] MEDS: PRENATAL VITAMINS W/ FOLIC ACID TABLET (FP) PO SCH (10:17)
[2021-07-20] MEDS: hydrOXYzine PAMOATE 25 MG CAPSULE (FP) PO PRN ×2 (10:18→21:38)
[2021-07-20] MEDS: FAMOTIDINE 20 MG TABLET PO SCH ×2 (12:00→21:36)
[2021-07-20] MEDS: ZIPRASIDONE 40 MG CAPSULE PO SCH (21:35)
[2021-07-20] MEDS: traZODone HCL 100 MG TABLET (FP) PO SCH (21:35)
[2021-07-20] MEDS: THIAMINE HCL 100 MG TABLET (FP) PO SCH (21:36)
[2021-07-21] MEDS: BICTEGRAV/EMTRICIT/TENOFOV (BIKTARVY) 50-200-25 MG TABLET PO SCH (09:38)
[2021-07-21] MEDS: FAMOTIDINE 20 MG TABLET PO SCH ×2 (09:38→21:10)
[2021-07-21] MEDS: PRENATAL VITAMINS W/ FOLIC ACID TABLET (FP) PO SCH (09:39)
[2021-07-21] MEDS: ZIPRASIDONE 40 MG CAPSULE PO SCH (21:10)
[2021-07-21] MEDS: traZODone HCL 100 MG TABLET (FP) PO SCH (21:10)
[2021-07-21] MEDS: THIAMINE HCL 100 MG TABLET (FP) PO SCH (21:11)
[2021-07-21] MEDS: hydrOXYzine PAMOATE 25 MG CAPSULE (FP) PO PRN (21:12)
[2021-07-22] MEDS: PRENATAL VITAMINS W/ FOLIC ACID TABLET (FP) PO SCH (10:17)
[2021-07-22] MEDS: FAMOTIDINE 20 MG TABLET PO SCH ×2 (10:17→21:40)
[2021-07-22] MEDS: DARUNAVIR/COB/EMTRI/TENOF (SYMTUZA) TABLET (NF) PO SCH (10:18)
[2021-07-22] MEDS: ZIPRASIDONE 40 MG CAPSULE PO SCH (21:40)
[2021-07-22] MEDS: traZODone HCL 100 MG TABLET (FP) PO SCH (21:41)
[2021-07-22] MEDS: THIAMINE HCL 100 MG TABLET (FP) PO SCH (21:41)
[2021-07-23] MEDS: DARUNAVIR/COB/EMTRI/TENOF (SYMTUZA) TABLET (NF) PO SCH (08:10)
[2021-07-23] MEDS: PRENATAL VITAMINS W/ FOLIC ACID TABLET (FP) PO SCH (10:11)
[2021-07-23] MEDS: FAMOTIDINE 20 MG TABLET PO SCH ×2 (10:11→21:19)
[2021-07-23] MEDS: ZIPRASIDONE 40 MG CAPSULE PO SCH (21:18)
[2021-07-23] MEDS: traZODone HCL 100 MG TABLET (FP) PO SCH (21:18)
[2021-07-23] MEDS: THIAMINE HCL 100 MG TABLET (FP) PO SCH (21:18)
[2021-07-23] MEDS: hydrOXYzine PAMOATE 25 MG CAPSULE (FP) PO PRN (21:19)
[2021-07-24] MEDS: DARUNAVIR/COB/EMTRI/TENOF (SYMTUZA) TABLET (NF) PO SCH (07:14)
[2021-07-24] MEDS: PRENATAL VITAMINS W/ FOLIC ACID TABLET (FP) PO SCH (10:17)
[2021-07-24] MEDS: FAMOTIDINE 20 MG TABLET PO SCH ×2 (10:17→21:25)
[2021-07-24] MEDS: guaiFENesin 200 MG/10 ML 10 ML UNIT-DOSE CUPS PO PRN (17:04)
[2021-07-24] MEDS: traZODone HCL 100 MG TABLET (FP) PO SCH (21:25)
[2021-07-24] MEDS: THIAMINE HCL 100 MG TABLET (FP) PO SCH (21:25)
[2021-07-24] MEDS: hydrOXYzine PAMOATE 25 MG CAPSULE (FP) PO PRN (21:26)
[2021-07-24] MEDS: ZIPRASIDONE 40 MG CAPSULE PO SCH (21:26)
[2021-07-25] MEDS: DARUNAVIR/COB/EMTRI/TENOF (SYMTUZA) TABLET (NF) PO SCH (07:30)
[2021-07-25] MEDS: FAMOTIDINE 20 MG TABLET PO SCH ×2 (10:15→21:33)
[2021-07-25] MEDS: PRENATAL VITAMINS W/ FOLIC ACID TABLET (FP) PO SCH (10:16)
[2021-07-25] MEDS: hydrOXYzine PAMOATE 25 MG CAPSULE (FP) PO PRN ×2 (12:45→21:34)
[2021-07-25] MEDS: THIAMINE HCL 100 MG TABLET (FP) PO SCH (21:33)
[2021-07-25] MEDS: traZODone HCL 100 MG TABLET (FP) PO SCH (21:33)
[2021-07-25] MEDS: ZIPRASIDONE 40 MG CAPSULE PO SCH (21:36)
[2021-07-26] MEDS: DARUNAVIR/COB/EMTRI/TENOF (SYMTUZA) TABLET (NF) PO SCH (07:04)
[2021-07-26] MEDS: PRENATAL VITAMINS W/ FOLIC ACID TABLET (FP) PO SCH (10:25)
[2021-07-26] MEDS: FAMOTIDINE 20 MG TABLET PO SCH ×2 (10:26→21:18)
[2021-07-26] MEDS: ZIPRASIDONE 40 MG CAPSULE PO SCH (21:18)
[2021-07-26] MEDS: THIAMINE HCL 100 MG TABLET (FP) PO SCH (21:18)
[2021-07-26] MEDS: traZODone HCL 100 MG TABLET (FP) PO SCH (21:18)
[2021-07-26] MEDS: hydrOXYzine PAMOATE 25 MG CAPSULE (FP) PO PRN (21:18)
[2021-07-27] MEDS: DARUNAVIR/COB/EMTRI/TENOF (SYMTUZA) TABLET (NF) PO SCH (07:03)
[2021-07-27] MEDS: PRENATAL VITAMINS W/ FOLIC ACID TABLET (FP) PO SCH (09:53)
[2021-07-27] MEDS: FAMOTIDINE 20 MG TABLET PO SCH ×2 (09:53→22:17)
[2021-07-27] MEDS: traZODone HCL 100 MG TABLET (FP) PO SCH (21:34)
[2021-07-27] MEDS: THIAMINE HCL 100 MG TABLET (FP) PO SCH (21:34)
[2021-07-27] MEDS: ZIPRASIDONE 40 MG CAPSULE PO SCH (21:34)
[2021-07-27] MEDS: hydrOXYzine PAMOATE 25 MG CAPSULE (FP) PO PRN (21:37)
[2021-07-28] MEDS: DARUNAVIR/COB/EMTRI/TENOF (SYMTUZA) TABLET (NF) PO SCH (07:09)
[2021-07-28] MEDS: PRENATAL VITAMINS W/ FOLIC ACID TABLET (FP) PO SCH (09:53)
[2021-07-28] MEDS ORDERED: FAMOTIDINE 10 MG TABLET PO SCH (10:00)
[2021-07-28] MEDS: PANTOPRAZOLE 40 MG TABLET PO SCH (10:28)
[2021-07-28] MEDS: hydrOXYzine PAMOATE 25 MG CAPSULE (FP) PO PRN (17:29)
[2021-07-28] MEDS: traZODone HCL 100 MG TABLET (FP) PO SCH (21:34)
[2021-07-28] MEDS: THIAMINE HCL 100 MG TABLET (FP) PO SCH (21:35)
[2021-07-28] MEDS: ZIPRASIDONE 40 MG CAPSULE PO SCH (21:36)
[2021-07-29] MEDS: DARUNAVIR/COB/EMTRI/TENOF (SYMTUZA) TABLET (NF) PO SCH (07:05)
[2021-07-29] MEDS: hydrOXYzine PAMOATE 25 MG CAPSULE (FP) PO PRN ×2 (09:07→21:24)
[2021-07-29] MEDS: PANTOPRAZOLE 40 MG TABLET PO SCH (10:19)
[2021-07-29] MEDS: PRENATAL VITAMINS W/ FOLIC ACID TABLET (FP) PO SCH (10:19)
[2021-07-29] MEDS: traZODone HCL 100 MG TABLET (FP) PO SCH (21:24)
[2021-07-29] MEDS: THIAMINE HCL 100 MG TABLET (FP) PO SCH (21:24)
[2021-07-29] MEDS: ZIPRASIDONE 40 MG CAPSULE PO SCH (21:24)
[2021-07-30] MEDS: DARUNAVIR/COB/EMTRI/TENOF (SYMTUZA) TABLET (NF) PO SCH (07:56)
[2021-07-30] MEDS: PRENATAL VITAMINS W/ FOLIC ACID TABLET (FP) PO SCH (09:42)
[2021-07-30] MEDS: PANTOPRAZOLE 40 MG TABLET PO SCH (09:42)
[2021-07-30] MEDS: THIAMINE HCL 100 MG TABLET (FP) PO SCH (21:11)
[2021-07-30] MEDS: traZODone HCL 100 MG TABLET (FP) PO SCH (21:11)
[2021-07-30] MEDS: ZIPRASIDONE 40 MG CAPSULE PO SCH (21:11)
[2021-07-30] MEDS: hydrOXYzine PAMOATE 25 MG CAPSULE (FP) PO PRN (21:12)
[2021-07-31] MEDS: DARUNAVIR/COB/EMTRI/TENOF (SYMTUZA) TABLET (NF) PO SCH (07:05)
[2021-07-31] MEDS: PANTOPRAZOLE 40 MG TABLET PO SCH (09:41)
[2021-07-31] MEDS: PRENATAL VITAMINS W/ FOLIC ACID TABLET (FP) PO SCH (09:41)
[2021-07-31] MEDS: hydrOXYzine PAMOATE 25 MG CAPSULE (FP) PO PRN ×2 (09:42→21:13)
[2021-07-31] MEDS: guaiFENesin 200 MG/10 ML 10 ML UNIT-DOSE CUPS PO PRN (12:55)
[2021-07-31] MEDS: THIAMINE HCL 100 MG TABLET (FP) PO SCH (21:13)
[2021-07-31] MEDS: ZIPRASIDONE 40 MG CAPSULE PO SCH (21:13)
[2021-07-31] MEDS: traZODone HCL 100 MG TABLET (FP) PO SCH (21:13)
[2021-08-01] MEDS: hydrOXYzine PAMOATE 25 MG CAPSULE (FP) PO PRN (06:12)
[2021-08-01 07:01] VITALS: BP 120/81; PULSE 70; TEMP 97.3
[2021-08-01] MEDS: DARUNAVIR/COB/EMTRI/TENOF (SYMTUZA) TABLET (NF) PO SCH (07:02)
== END 2021-08-01 07:01 | disposition home or self-care (01) | DRG 895 ==
LOC: YASAS 13:45 → Y3E 13:46
PROVIDERS: ADMIT Allergy & Immunology; ATTEND Allergy & Immunology
PROC: HZ42ZZZ Group Counseling for Substance Abuse Treatment, Cognitive-Behavioral (ICD-10-PCS; principal; 2021-07-19)
DX: F10.20 Alcohol dependence, uncomplicated (principal); F14.20 Cocaine dependence, uncomplicated; F12.20 Cannabis dependence, uncomplicated; F19.24 Other psychoactive substance dependence with psychoactive substance-induced mood disorder; F31.9 Bipolar disorder, unspecified; F41.0 Panic disorder [episodic paroxysmal anxiety]; F43.10 Post-traumatic stress disorder, unspecified; Z21 Asymptomatic human immunodeficiency virus [HIV] infection status; G40.909 Epilepsy, unspecified, not intractable, without status epilepticus; G47.00 Insomnia, unspecified; K21.9 Gastro-esophageal reflux disease without esophagitis; Z86.11 Personal history of tuberculosis; Z86.19 Personal history of other infectious and parasitic diseases; Z88.6 Allergy status to analgesic agent; Z88.8 Allergy status to other drugs, medicaments and biological substances; Z91.018 Allergy to other foods
CPT/HCPCS: C9803; U0003; U0005

== ENCOUNTER 2021-10-09 13:12 | Inpatient (IN) | payer OTHER ==
[2021-10-09] MEDS ORDERED: DICYCLOMINE HCL 10 MG CAPSULE PO PRN (14:58)
[2021-10-09] MEDS ORDERED: IBUPROFEN 400 MG TABLET (FP) PO PRN (14:58)
[2021-10-09] MEDS ORDERED: MAGNESIUM HYDROX 2400MG/30ML ORAL SUSPENSION 30 ML CUP PO PRN (14:58)
[2021-10-09] MEDS ORDERED: BISMUTH SUBSALICYLATE 524 MG/30 ML PO PRN (14:58)
[2021-10-09] MEDS ORDERED: chlordiazePOXIDE HCL 25 MG CAPSULE PO PRN (14:58)
[2021-10-09] MEDS ORDERED: BENZOCAINE/MENTHOL (CHLORASEPTIC ) LOZENGE MM PRN (14:58)
[2021-10-09] MEDS ORDERED: MAG HYDROX/AL HYDROX/SIMETH 30 ML UNIT-DOSE CUP PO PRN (14:58)
[2021-10-09] MEDS ORDERED: MAGNESIUM CITRATE 300 ML BOTTLE PO PRN (14:58)
[2021-10-09] MEDS ORDERED: ONDANSETRON *ODT* 4 MG TABLET SL PRN (14:58)
[2021-10-09] MEDS ORDERED: LOPERAMIDE HCL 2 MG CAPSULE PO PRN (14:58)
[2021-10-09] MEDS ORDERED: ACETAMINOPHEN 325 MG TABLET (FP) PO PRN ×2 (14:58)
[2021-10-09] MEDS ORDERED: METHOCARBAMOL 500 MG TABLET PO PRN (14:58)
[2021-10-09 15:38] VITALS: BMI 31.1
[2021-10-09] MEDS: PRENATAL VITAMINS W/ FOLIC ACID TABLET (FP) PO SCH (18:01)
[2021-10-09] MEDS: chlordiazePOXIDE HCL 25 MG CAPSULE PO SCH ×2 (18:01→22:05)
[2021-10-09] MEDS: hydrOXYzine PAMOATE 25 MG CAPSULE (FP) PO SCH ×2 (18:01→22:04)
[2021-10-09] MEDS ORDERED: MELATONIN 5 MG TABLETS PO SCH (22:00)
[2021-10-09] MEDS ORDERED: THIAMINE HCL 100 MG TABLET (FP) PO SCH (22:00)
[2021-10-09] MEDS ORDERED: traZODone HCL 100 MG TABLET (FP) PO SCH (22:00)
[2021-10-10] MEDS: chlordiazePOXIDE HCL 25 MG CAPSULE PO SCH ×2 (06:26→10:33)
[2021-10-10] MEDS: hydrOXYzine PAMOATE 25 MG CAPSULE (FP) PO SCH ×2 (06:26→10:34)
[2021-10-10 07:39] VITALS: BP 124/89; PULSE 61; TEMP 98.7
[2021-10-10] MEDS: PRENATAL VITAMINS W/ FOLIC ACID TABLET (FP) PO SCH (10:34)
[2021-10-10 12:05] LABS: HEMATOCRIT 44.9 % (35.4-49); HEMOGLOBIN 15.3 GM/dL (11.7-16.9); MCH 29.6 pg (25.7-33.7); MCHC 34.1 g/dl (32.0-35.9); MEAN CELL VOLUME 86.8 fl (80-96); MEAN PLT VOLUME 7.9 fl (7.5-11.1); PLATELET COUNT 211 10^3/uL (134-434); RBC 5.17 M/mm3 (4.00-5.60); RDW 12.7 % (11.9-15.9); WHITE BLOOD COUNT 4.8 K/mm3 (4.0-10.0)
[2021-10-10 12:38] LABS: CREATININE 1.3 mg/dL (0.55-1.3)
[2021-10-10 12:40] LABS: BILIRUBIN,TOTAL 0.8 mg/dL (0.2-1)
[2021-10-10 12:41] LABS: ALBUMIN 3.4 g/dl (3.4-5.0); BLOOD UREA NITROGEN 9.7 mg/dL (7-18)
[2021-10-10 12:42] LABS: CALCIUM 8.8 mg/dL (8.5-10.1)
[2021-10-10 12:45] LABS: TOT PROT 6.4 g/dl (6.4-8.2)
[2021-10-11] MEDS ORDERED: chlordiazePOXIDE HCL 25 MG CAPSULE PO SCH (05:00)
[2021-10-12] MEDS ORDERED: chlordiazePOXIDE HCL 10 MG CAPSULE PO PRN
[2021-10-12 00:07] LABS: SARS-CoV-2 NAA Not Detected (Not Detected)
[2021-10-12] MEDS ORDERED: chlordiazePOXIDE HCL 10 MG CAPSULE PO SCH (05:00)
[2021-10-13] MEDS ORDERED: chlordiazePOXIDE HCL 10 MG CAPSULE PO SCH (05:00)
[2021-10-14] MEDS ORDERED: chlordiazePOXIDE HCL 10 MG CAPSULE PO ONE (05:00)
== END 2021-10-10 11:20 | disposition left against medical advice (07) | DRG 894 ==
LOC: YASAS 13:12 → Y3N 16:34
PROVIDERS: ADMIT Allergy & Immunology; ATTEND Allergy & Immunology
PROC: HZ2ZZZZ Detoxification Services for Substance Abuse Treatment (ICD-10-PCS; principal; 2021-10-09)
DX: F10.230 Alcohol dependence with withdrawal, uncomplicated (principal); F14.10 Cocaine abuse, uncomplicated; F12.20 Cannabis dependence, uncomplicated; F31.9 Bipolar disorder, unspecified; F43.10 Post-traumatic stress disorder, unspecified; Z86.11 Personal history of tuberculosis; Z86.19 Personal history of other infectious and parasitic diseases; Z88.5 Allergy status to narcotic agent; Z88.8 Allergy status to other drugs, medicaments and biological substances; Z91.014 Allergy to mammalian meats
CPT/HCPCS: 36415; 80053; 85027; 86593; 86780; C9803-CS; U0003; U0005

== ENCOUNTER 2021-10-29 11:22 | Inpatient (IN) | payer OTHER ==
[2021-10-29] MEDS ORDERED: NICOTINE 10 MG CARTRIDGE (INHALER) IH PRN (11:44)
[2021-10-29] MEDS ORDERED: DICYCLOMINE HCL 10 MG CAPSULE PO PRN (11:44)
[2021-10-29] MEDS ORDERED: BISMUTH SUBSALICYLATE 524 MG/30 ML PO PRN (11:44)
[2021-10-29] MEDS ORDERED: LOPERAMIDE HCL 2 MG CAPSULE PO PRN (11:44)
[2021-10-29] MEDS ORDERED: ONDANSETRON *ODT* 4 MG TABLET SL PRN (11:44)
[2021-10-29] MEDS ORDERED: IBUPROFEN 400 MG TABLET (FP) PO PRN (11:44)
[2021-10-29] MEDS ORDERED: BENZOCAINE/MENTHOL (CHLORASEPTIC ) LOZENGE MM PRN (11:44)
[2021-10-29] MEDS ORDERED: chlordiazePOXIDE HCL 25 MG CAPSULE PO PRN (11:44)
[2021-10-29] MEDS ORDERED: MAG HYDROX/AL HYDROX/SIMETH 30 ML UNIT-DOSE CUP PO PRN (11:44)
[2021-10-29] MEDS ORDERED: MAGNESIUM CITRATE 300 ML BOTTLE PO PRN (11:44)
[2021-10-29] MEDS ORDERED: METHOCARBAMOL 500 MG TABLET PO PRN (11:44)
[2021-10-29] MEDS ORDERED: MAGNESIUM HYDROX 2400MG/30ML ORAL SUSPENSION 30 ML CUP PO PRN (11:44)
[2021-10-29] MEDS ORDERED: ACETAMINOPHEN 325 MG TABLET (FP) PO PRN ×2 (11:44)
[2021-10-29 12:55] VITALS: BMI 31.1
[2021-10-29] MEDS ORDERED: hydrOXYzine PAMOATE 25 MG CAPSULE (FP) PO SCH (14:00)
[2021-10-29] MEDS: PRENATAL VITAMINS W/ FOLIC ACID TABLET (FP) PO SCH (15:00)
[2021-10-29 17:14] LABS: HEMATOCRIT 47.4 % (35.4-49); MCH 29.8 pg (25.7-33.7); MCHC 33.7 g/dl (32.0-35.9); MEAN CELL VOLUME 88.5 fl (80-96); MEAN PLT VOLUME 8.2 fl (7.5-11.1); PLATELET COUNT 203 10^3/uL (134-434); RBC 5.36 M/mm3 (4.00-5.60); RDW 13.8 % (11.9-15.9); WHITE BLOOD COUNT 4.9 K/mm3 (4.0-10.0)
[2021-10-29 17:39] LABS: CALCIUM 9.2 mg/dL (8.5-10.1)
[2021-10-29 17:40] LABS: ALBUMIN 4.1 g/dl (3.4-5.0); BLOOD UREA NITROGEN 7.9 mg/dL (7-18)
[2021-10-29 17:42] LABS: CREATININE 1.3 mg/dL (0.55-1.3)
[2021-10-29 17:45] LABS: BILIRUBIN,TOTAL 0.9 mg/dL (0.2-1); TOT PROT 7.6 g/dl (6.4-8.2)
[2021-10-29] MEDS: chlordiazePOXIDE HCL 25 MG CAPSULE PO SCH ×2 (17:49→22:31)
[2021-10-29] MEDS ORDERED: hydrOXYzine PAMOATE 50 MG CAPSULE (FP) PO ONE (19:00)
[2021-10-29] MEDS ORDERED: traZODone HCL 100 MG TABLET (FP) PO ONE (19:00)
[2021-10-29] MEDS ORDERED: ZIPRASIDONE 40 MG CAPSULE PO ONE (19:00)
[2021-10-29] MEDS: traZODone HCL 100 MG TABLET (FP) PO SCH (22:30)
[2021-10-29] MEDS: ZIPRASIDONE 40 MG CAPSULE PO SCH (22:30)
[2021-10-29] MEDS: THIAMINE HCL 100 MG TABLET (FP) PO SCH (22:30)
[2021-10-29] MEDS: hydrOXYzine PAMOATE 25 MG CAPSULE (FP) PO SCH (22:30)
[2021-10-29] MEDS: MELATONIN 5 MG TABLETS PO SCH (22:31)
[2021-10-30] MEDS: hydrOXYzine PAMOATE 25 MG CAPSULE (FP) PO SCH ×5 (01:00→22:14)
[2021-10-30] MEDS: chlordiazePOXIDE HCL 25 MG CAPSULE PO SCH ×4 (05:31→22:13)
[2021-10-30] MEDS: DARUNAVIR/COB/EMTRI/TENOF (SYMTUZA) TABLET (NF) PO SCH (07:27)
[2021-10-30] MEDS: PRENATAL VITAMINS W/ FOLIC ACID TABLET (FP) PO SCH (11:12)
[2021-10-30] MEDS: THIAMINE HCL 100 MG TABLET (FP) PO SCH (22:14)
[2021-10-30] MEDS: traZODone HCL 100 MG TABLET (FP) PO SCH (22:14)
[2021-10-30] MEDS: MELATONIN 5 MG TABLETS PO SCH (22:15)
[2021-10-30] MEDS: ZIPRASIDONE 40 MG CAPSULE PO SCH (22:15)
[2021-10-31] MEDS: chlordiazePOXIDE HCL 25 MG CAPSULE PO SCH ×4 (05:41→22:36)
[2021-10-31] MEDS: hydrOXYzine PAMOATE 25 MG CAPSULE (FP) PO SCH ×4 (05:42→22:58)
[2021-10-31] MEDS: PRENATAL VITAMINS W/ FOLIC ACID TABLET (FP) PO SCH (10:39)
[2021-10-31] MEDS: DARUNAVIR/COB/EMTRI/TENOF (SYMTUZA) TABLET (NF) PO SCH (10:39)
[2021-10-31 14:09] LABS: SARS-CoV-2 NAA Not Detected (Not Detected)
[2021-10-31] MEDS: traZODone HCL 100 MG TABLET (FP) PO SCH (22:36)
[2021-10-31] MEDS: ZIPRASIDONE 40 MG CAPSULE PO SCH (22:36)
[2021-10-31] MEDS: THIAMINE HCL 100 MG TABLET (FP) PO SCH (22:36)
[2021-10-31] MEDS: MELATONIN 5 MG TABLETS PO SCH (22:36)
[2021-11-01] MEDS: chlordiazePOXIDE HCL 10 MG CAPSULE PO SCH ×4 (05:34→22:15)
[2021-11-01] MEDS: hydrOXYzine PAMOATE 25 MG CAPSULE (FP) PO SCH ×3 (05:36→17:42)
[2021-11-01] MEDS: DARUNAVIR/COB/EMTRI/TENOF (SYMTUZA) TABLET (NF) PO SCH (08:33)
[2021-11-01] MEDS: PRENATAL VITAMINS W/ FOLIC ACID TABLET (FP) PO SCH (10:45)
[2021-11-01] MEDS: chlordiazePOXIDE HCL 10 MG CAPSULE PO PRN ×2 (17:43→22:10)
[2021-11-01] MEDS: THIAMINE HCL 100 MG TABLET (FP) PO SCH (22:09)
[2021-11-01] MEDS: ZIPRASIDONE 40 MG CAPSULE PO SCH (22:09)
[2021-11-01] MEDS: traZODone HCL 100 MG TABLET (FP) PO SCH (22:10)
[2021-11-01] MEDS: MELATONIN 5 MG TABLETS PO SCH (22:13)
[2021-11-02] MEDS: chlordiazePOXIDE HCL 10 MG CAPSULE PO SCH ×2 (05:13→18:08)
[2021-11-02] MEDS: hydrOXYzine PAMOATE 25 MG CAPSULE (FP) PO SCH ×4 (05:14→22:19)
[2021-11-02] MEDS: DARUNAVIR/COB/EMTRI/TENOF (SYMTUZA) TABLET (NF) PO SCH (07:40)
[2021-11-02] MEDS: PRENATAL VITAMINS W/ FOLIC ACID TABLET (FP) PO SCH (11:09)
[2021-11-02] MEDS: ZIPRASIDONE 40 MG CAPSULE PO SCH (22:27)
[2021-11-02] MEDS: MELATONIN 5 MG TABLETS PO SCH (22:27)
[2021-11-02] MEDS: THIAMINE HCL 100 MG TABLET (FP) PO SCH (22:27)
[2021-11-02] MEDS: traZODone HCL 100 MG TABLET (FP) PO SCH (22:27)
[2021-11-03] MEDS ORDERED: chlordiazePOXIDE HCL 10 MG CAPSULE PO ONE (05:00)
[2021-11-03] MEDS: hydrOXYzine PAMOATE 25 MG CAPSULE (FP) PO SCH (05:24)
[2021-11-03] MEDS: DARUNAVIR/COB/EMTRI/TENOF (SYMTUZA) TABLET (NF) PO SCH (07:05)
[2021-11-03 09:10] VITALS: BP 148/93; PULSE 81; TEMP 98.1
== END 2021-11-03 10:08 | disposition home or self-care (01) | DRG 897 ==
LOC: YASAS 11:22 → Y6N 14:00
PROVIDERS: ADMIT Allergy & Immunology; ATTEND Allergy & Immunology
PROC: HZ2ZZZZ Detoxification Services for Substance Abuse Treatment (ICD-10-PCS; principal; 2021-10-29)
DX: F10.230 Alcohol dependence with withdrawal, uncomplicated (principal); F14.20 Cocaine dependence, uncomplicated; F19.282 Other psychoactive substance dependence with psychoactive substance-induced sleep disorder; F12.20 Cannabis dependence, uncomplicated; F19.24 Other psychoactive substance dependence with psychoactive substance-induced mood disorder; F31.9 Bipolar disorder, unspecified; F43.10 Post-traumatic stress disorder, unspecified; Z21 Asymptomatic human immunodeficiency virus [HIV] infection status; G40.909 Epilepsy, unspecified, not intractable, without status epilepticus; K21.9 Gastro-esophageal reflux disease without esophagitis; Z62.810 Personal history of physical and sexual abuse in childhood; Z86.11 Personal history of tuberculosis; Z86.19 Personal history of other infectious and parasitic diseases; Z91.51 Personal history of suicidal behavior; Z88.6 Allergy status to analgesic agent; Z88.8 Allergy status to other drugs, medicaments and biological substances; Z91.014 Allergy to mammalian meats
CPT/HCPCS: 36415; 80053; 85027; 86593; 86780; 87811; C9803-CS; U0003; U0005

== ENCOUNTER 2021-12-12 09:07 | Inpatient (IN) | payer OTHER ==
[2021-12-12 09:35] VITALS: BMI 29.8
[2021-12-12] MEDS ORDERED: MAGNESIUM HYDROX 2400MG/30ML ORAL SUSPENSION 30 ML CUP PO PRN (10:04)
[2021-12-12] MEDS ORDERED: IBUPROFEN 400 MG TABLET (FP) PO PRN (10:04)
[2021-12-12] MEDS ORDERED: MAG HYDROX/AL HYDROX/SIMETH 30 ML UNIT-DOSE CUP PO PRN (10:04)
[2021-12-12] MEDS ORDERED: MAGNESIUM CITRATE 300 ML BOTTLE PO PRN (10:04)
[2021-12-12] MEDS ORDERED: METHOCARBAMOL 500 MG TABLET PO PRN (10:04)
[2021-12-12] MEDS ORDERED: BENZOCAINE/MENTHOL (CHLORASEPTIC ) LOZENGE MM PRN (10:04)
[2021-12-12] MEDS ORDERED: DICYCLOMINE HCL 10 MG CAPSULE PO PRN (10:04)
[2021-12-12] MEDS ORDERED: ONDANSETRON *ODT* 4 MG TABLET SL PRN (10:04)
[2021-12-12] MEDS ORDERED: IBUPROFEN 600 MG TABLET (FP) PO PRN (10:04)
[2021-12-12] MEDS: chlordiazePOXIDE HCL 25 MG CAPSULE PO PRN (11:03)
[2021-12-12] MEDS: hydrOXYzine PAMOATE 25 MG CAPSULE (FP) PO SCH ×3 (13:55→22:22)
[2021-12-12] MEDS: DARUNAVIR/COB/EMTRI/TENOF (SYMTUZA) TABLET (NF) PO SCH (16:01)
[2021-12-12 17:14] LABS: HEMATOCRIT 49.4 % (35.4-49); HEMOGLOBIN 16.7 GM/dL (11.7-16.9); MCHC 33.7 g/dl (32.0-35.9); MEAN CELL VOLUME 86.1 fl (80-96); MEAN PLT VOLUME 7.9 fl (7.5-11.1); PLATELET COUNT 238 10^3/uL (134-434); RBC 5.74 M/mm3 (4.00-5.60); RDW 12.8 % (11.9-15.9)
[2021-12-12 17:22] LABS: ALBUMIN 4.1 g/dl (3.4-5.0); CALCIUM 9.4 mg/dL (8.5-10.1)
[2021-12-12 17:24] LABS: CREATININE 1.4 mg/dL (0.55-1.3)
[2021-12-12 17:26] LABS: BILIRUBIN,TOTAL 0.5 mg/dL (0.2-1); TOT PROT 7.8 g/dl (6.4-8.2)
[2021-12-12] MEDS: chlordiazePOXIDE HCL 25 MG CAPSULE PO SCH ×2 (17:55→22:23)
[2021-12-12] MEDS: traZODone HCL 100 MG TABLET (FP) PO SCH (22:22)
[2021-12-12] MEDS: THIAMINE HCL 100 MG TABLET (FP) PO SCH (22:22)
[2021-12-12] MEDS: MELATONIN 5 MG TABLETS PO SCH (22:22)
[2021-12-12] MEDS: ZIPRASIDONE 40 MG CAPSULE PO SCH (22:23)
[2021-12-13] MEDS: hydrOXYzine PAMOATE 25 MG CAPSULE (FP) PO SCH ×5 (05:55→23:02)
[2021-12-13] MEDS: chlordiazePOXIDE HCL 25 MG CAPSULE PO SCH ×4 (05:56→23:02)
[2021-12-13] MEDS: DARUNAVIR/COB/EMTRI/TENOF (SYMTUZA) TABLET (NF) PO SCH (07:10)
[2021-12-13] MEDS ORDERED: methaDONE HCL 10 MG TABLET PO SCH (10:15)
[2021-12-13] MEDS ORDERED: methaDONE HCL 10 MG TABLET ONE (11:02)
[2021-12-13] MEDS ORDERED: methaDONE HCL 40 MG DISPERSABLE TABLET ONE (11:02)
[2021-12-13] MEDS: PRENATAL VITAMINS W/ FOLIC ACID TABLET (FP) PO SCH (11:10)
[2021-12-13] MEDS ORDERED: methaDONE 40 MG, methaDONE 20 MG PO SCH (11:15)
[2021-12-13] MEDS: LOPERAMIDE HCL 2 MG CAPSULE PO PRN (18:00)
[2021-12-13] MEDS: MELATONIN 5 MG TABLETS PO SCH (23:01)
[2021-12-13] MEDS: ZIPRASIDONE 40 MG CAPSULE PO SCH (23:02)
[2021-12-13] MEDS: THIAMINE HCL 100 MG TABLET (FP) PO SCH (23:02)
[2021-12-13] MEDS: traZODone HCL 100 MG TABLET (FP) PO SCH (23:02)
[2021-12-14] MEDS: chlordiazePOXIDE HCL 25 MG CAPSULE PO SCH ×4 (05:46→22:53)
[2021-12-14] MEDS: hydrOXYzine PAMOATE 25 MG CAPSULE (FP) PO SCH ×5 (05:46→22:53)
[2021-12-14] MEDS: DARUNAVIR/COB/EMTRI/TENOF (SYMTUZA) TABLET (NF) PO SCH (08:21)
[2021-12-14] MEDS: LOPERAMIDE HCL 2 MG CAPSULE PO PRN (11:01)
[2021-12-14] MEDS: PRENATAL VITAMINS W/ FOLIC ACID TABLET (FP) PO SCH (11:02)
[2021-12-14] MEDS: chlordiazePOXIDE HCL 25 MG CAPSULE PO PRN (14:39)
[2021-12-14] MEDS: THIAMINE HCL 100 MG TABLET (FP) PO SCH (22:53)
[2021-12-14] MEDS: MELATONIN 5 MG TABLETS PO SCH (22:53)
[2021-12-14] MEDS: ZIPRASIDONE 40 MG CAPSULE PO SCH (22:53)
[2021-12-14] MEDS: traZODone HCL 100 MG TABLET (FP) PO SCH (22:53)
[2021-12-15] MEDS ORDERED: chlordiazePOXIDE HCL 10 MG CAPSULE PO PRN
[2021-12-15] MEDS: hydrOXYzine PAMOATE 25 MG CAPSULE (FP) PO SCH ×5 (06:02→22:26)
[2021-12-15] MEDS: chlordiazePOXIDE HCL 10 MG CAPSULE PO SCH ×4 (06:02→22:26)
[2021-12-15] MEDS: DARUNAVIR/COB/EMTRI/TENOF (SYMTUZA) TABLET (NF) PO SCH (07:16)
[2021-12-15 10:22] LABS: CREATININE 1.3 mg/dL (0.55-1.3)
[2021-12-15] MEDS: PRENATAL VITAMINS W/ FOLIC ACID TABLET (FP) PO SCH (10:42)
[2021-12-15] MEDS: THIAMINE HCL 100 MG TABLET (FP) PO SCH (22:26)
[2021-12-15] MEDS: traZODone HCL 100 MG TABLET (FP) PO SCH (22:26)
[2021-12-15] MEDS: ZIPRASIDONE 40 MG CAPSULE PO SCH (22:26)
[2021-12-15] MEDS: MELATONIN 5 MG TABLETS PO SCH (22:29)
[2021-12-16] MEDS: hydrOXYzine PAMOATE 25 MG CAPSULE (FP) PO SCH ×5 (06:00→22:15)
[2021-12-16] MEDS: chlordiazePOXIDE HCL 10 MG CAPSULE PO SCH ×2 (06:01→18:12)
[2021-12-16] MEDS: DARUNAVIR/COB/EMTRI/TENOF (SYMTUZA) TABLET (NF) PO SCH (07:33)
[2021-12-16] MEDS: PRENATAL VITAMINS W/ FOLIC ACID TABLET (FP) PO SCH (10:18)
[2021-12-16] MEDS: traZODone HCL 100 MG TABLET (FP) PO SCH (22:15)
[2021-12-16] MEDS: MELATONIN 5 MG TABLETS PO SCH (22:15)
[2021-12-16] MEDS: THIAMINE HCL 100 MG TABLET (FP) PO SCH (22:15)
[2021-12-16] MEDS: ZIPRASIDONE 40 MG CAPSULE PO SCH (22:15)
[2021-12-17] MEDS ORDERED: chlordiazePOXIDE HCL 10 MG CAPSULE PO ONE (05:00)
[2021-12-17] MEDS: hydrOXYzine PAMOATE 25 MG CAPSULE (FP) PO SCH ×2 (05:57→09:45)
[2021-12-17] MEDS: DARUNAVIR/COB/EMTRI/TENOF (SYMTUZA) TABLET (NF) PO SCH (07:17)
[2021-12-17] MEDS: PRENATAL VITAMINS W/ FOLIC ACID TABLET (FP) PO SCH (09:45)
[2021-12-17 09:51] VITALS: BP 132/93; PULSE 79; TEMP 96.9
== END 2021-12-17 09:50 | disposition other institution (70) | DRG 897 ==
LOC: YASAS 09:07 → Y6N 12:31
PROVIDERS: ADMIT Allergy & Immunology; ATTEND Surgery
PROC: HZ2ZZZZ Detoxification Services for Substance Abuse Treatment (ICD-10-PCS; principal; 2021-12-12)
DX: F10.230 Alcohol dependence with withdrawal, uncomplicated (principal); F13.20 Sedative, hypnotic or anxiolytic dependence, uncomplicated; F14.20 Cocaine dependence, uncomplicated; F10.220 Alcohol dependence with intoxication, uncomplicated; F12.20 Cannabis dependence, uncomplicated; F25.1 Schizoaffective disorder, depressive type; F31.9 Bipolar disorder, unspecified; F43.10 Post-traumatic stress disorder, unspecified; K21.9 Gastro-esophageal reflux disease without esophagitis; R73.09 Other abnormal glucose; Z21 Asymptomatic human immunodeficiency virus [HIV] infection status; Z88.6 Allergy status to analgesic agent; Z87.438 Personal history of other diseases of male genital organs; Z86.69 Personal history of other diseases of the nervous system and sense organs; Z86.19 Personal history of other infectious and parasitic diseases; Z86.11 Personal history of tuberculosis; Z91.51 Personal history of suicidal behavior; Z56.0 Unemployment, unspecified
CPT/HCPCS: 36415; 71046-TC-FY; 80053; 82565; 82962; 85027; 86593; 86780; 87811; C9803-CS; Q0162; U0003; U0005

== ENCOUNTER 2021-12-17 09:56 | Inpatient (IN) | payer OTHER ==
[2021-12-17] MEDS ORDERED: MAG HYDROX/AL HYDROX/SIMETH 30 ML UNIT-DOSE CUP PO PRN (11:32)
[2021-12-17] MEDS ORDERED: IBUPROFEN 400 MG TABLET (FP) PO PRN (11:32)
[2021-12-17] MEDS ORDERED: NICOTINE 10 MG CARTRIDGE (INHALER) IH PRN (11:32)
[2021-12-17] MEDS ORDERED: MAGNESIUM CITRATE 300 ML BOTTLE PO PRN (11:32)
[2021-12-17] MEDS ORDERED: guaiFENesin 200 MG/10 ML 10 ML UNIT-DOSE CUPS PO PRN (11:32)
[2021-12-17] MEDS ORDERED: LOPERAMIDE HCL 2 MG CAPSULE PO PRN (11:32)
[2021-12-17] MEDS ORDERED: MAGNESIUM HYDROX 2400MG/30ML ORAL SUSPENSION 30 ML CUP PO PRN (11:32)
[2021-12-17] MEDS ORDERED: P-EPHED 60MG/TRIPROLIDI 2.5MG TABLET PO PRN (11:32)
[2021-12-17] MEDS ORDERED: ACETAMINOPHEN 325 MG TABLET (FP) PO PRN (11:32)
[2021-12-17] MEDS ORDERED: BENZOCAINE/MENTHOL (CHLORASEPTIC ) LOZENGE MM PRN (11:32)
[2021-12-17] MEDS: MELATONIN 5 MG TABLETS PO SCH (21:16)
[2021-12-17] MEDS: THIAMINE HCL 100 MG TABLET (FP) PO SCH (21:16)
[2021-12-17] MEDS: hydrOXYzine PAMOATE 25 MG CAPSULE (FP) PO PRN (21:18)
[2021-12-17] MEDS ORDERED: ZIPRASIDONE 40 MG CAPSULE PO SCH ×2 (22:00)
[2021-12-17] MEDS ORDERED: traZODone HCL 100 MG TABLET (FP) PO SCH (22:00)
[2021-12-18] MEDS: DARUNAVIR/COB/EMTRI/TENOF (SYMTUZA) TABLET (NF) PO SCH (07:19)
[2021-12-18] MEDS: PRENATAL VITAMINS W/ FOLIC ACID TABLET (FP) PO SCH (09:51)
[2021-12-18] MEDS: NICOTINE 7 MG/24 HOURS TOPICAL PATCH TD SCH (09:53)
[2021-12-18] MEDS: hydrOXYzine PAMOATE 25 MG CAPSULE (FP) PO PRN (15:16)
[2021-12-18] MEDS: ZIPRASIDONE 40 MG CAPSULE PO SCH (20:02)
[2021-12-18] MEDS: traZODone HCL 100 MG TABLET (FP) PO SCH ×2 (20:02→22:49)
[2021-12-18] MEDS: ACAMPROSATE CALCIUM 333 MG TABLET.DR PO SCH (21:32)
[2021-12-18] MEDS: MELATONIN 5 MG TABLETS PO SCH (21:33)
[2021-12-18] MEDS: THIAMINE HCL 100 MG TABLET (FP) PO SCH (21:33)
[2021-12-18] MEDS ORDERED: ZIPRASIDONE 40 MG CAPSULE PO SCH (22:00)
[2021-12-19] MEDS: ACAMPROSATE CALCIUM 333 MG TABLET.DR PO SCH ×3 (06:21→21:18)
[2021-12-19] MEDS: DARUNAVIR/COB/EMTRI/TENOF (SYMTUZA) TABLET (NF) PO SCH (07:01)
[2021-12-19] MEDS: ZIPRASIDONE 40 MG CAPSULE PO SCH ×2 (09:40→20:05)
[2021-12-19] MEDS: NICOTINE 7 MG/24 HOURS TOPICAL PATCH TD SCH (09:41)
[2021-12-19] MEDS: PRENATAL VITAMINS W/ FOLIC ACID TABLET (FP) PO SCH (09:41)
[2021-12-19] MEDS ORDERED: ZIPRASIDONE 40 MG CAPSULE PO SCH (10:00)
[2021-12-19] MEDS: THIAMINE HCL 100 MG TABLET (FP) PO SCH (21:18)
[2021-12-19] MEDS: traZODone HCL 100 MG TABLET (FP) PO SCH (21:18)
[2021-12-19] MEDS: MELATONIN 5 MG TABLETS PO SCH (21:18)
[2021-12-20] MEDS: ACAMPROSATE CALCIUM 333 MG TABLET.DR PO SCH ×3 (06:24→21:47)
[2021-12-20] MEDS: DARUNAVIR/COB/EMTRI/TENOF (SYMTUZA) TABLET (NF) PO SCH (07:12)
[2021-12-20] MEDS: ZIPRASIDONE 40 MG CAPSULE PO SCH ×2 (09:45→20:04)
[2021-12-20] MEDS: PRENATAL VITAMINS W/ FOLIC ACID TABLET (FP) PO SCH (09:46)
[2021-12-20] MEDS: NICOTINE 7 MG/24 HOURS TOPICAL PATCH TD SCH (09:47)
[2021-12-20] MEDS: DOCUSATE SODIUM 100 MG CAPSULE (FP) PO SCH ×2 (10:56→21:47)
[2021-12-20] MEDS: traZODone HCL 100 MG TABLET (FP) PO SCH (21:48)
[2021-12-20] MEDS: MELATONIN 5 MG TABLETS PO SCH (21:48)
[2021-12-20] MEDS: THIAMINE HCL 100 MG TABLET (FP) PO SCH (21:48)
[2021-12-21] MEDS: ACAMPROSATE CALCIUM 333 MG TABLET.DR PO SCH ×3 (06:11→19:55)
[2021-12-21] MEDS: DARUNAVIR/COB/EMTRI/TENOF (SYMTUZA) TABLET (NF) PO SCH (07:18)
[2021-12-21] MEDS: PRENATAL VITAMINS W/ FOLIC ACID TABLET (FP) PO SCH (09:54)
[2021-12-21] MEDS: DOCUSATE SODIUM 100 MG CAPSULE (FP) PO SCH ×2 (09:54→19:49)
[2021-12-21] MEDS: ZIPRASIDONE 40 MG CAPSULE PO SCH ×2 (09:55→19:49)
[2021-12-21] MEDS: NICOTINE 7 MG/24 HOURS TOPICAL PATCH TD SCH (09:56)
[2021-12-21] MEDS: traZODone HCL 100 MG TABLET (FP) PO SCH (19:49)
[2021-12-21] MEDS: MELATONIN 5 MG TABLETS PO SCH (19:49)
[2021-12-21] MEDS: THIAMINE HCL 100 MG TABLET (FP) PO SCH (19:52)
[2021-12-21] MEDS ORDERED: ACAMPROSATE CALCIUM 333 MG TABLET.DR PO SCH ×2 (20:01→21:03)
[2021-12-22] MEDS: ACAMPROSATE CALCIUM 333 MG TABLET.DR PO SCH ×3 (06:10→19:59)
[2021-12-22] MEDS: DARUNAVIR/COB/EMTRI/TENOF (SYMTUZA) TABLET (NF) PO SCH (07:22)
[2021-12-22] MEDS: ZIPRASIDONE 40 MG CAPSULE PO SCH ×2 (09:52→20:00)
[2021-12-22] MEDS: DOCUSATE SODIUM 100 MG CAPSULE (FP) PO SCH ×2 (09:52→19:59)
[2021-12-22] MEDS: PRENATAL VITAMINS W/ FOLIC ACID TABLET (FP) PO SCH (09:52)
[2021-12-22] MEDS: traZODone HCL 100 MG TABLET (FP) PO SCH (19:59)
[2021-12-22] MEDS: THIAMINE HCL 100 MG TABLET (FP) PO SCH (19:59)
[2021-12-22] MEDS: MELATONIN 5 MG TABLETS PO SCH (20:01)
[2021-12-23] MEDS: ACAMPROSATE CALCIUM 333 MG TABLET.DR PO SCH ×3 (04:12→20:05)
[2021-12-23] MEDS: DARUNAVIR/COB/EMTRI/TENOF (SYMTUZA) TABLET (NF) PO SCH (07:05)
[2021-12-23] MEDS: PRENATAL VITAMINS W/ FOLIC ACID TABLET (FP) PO SCH (09:46)
[2021-12-23] MEDS: DOCUSATE SODIUM 100 MG CAPSULE (FP) PO SCH ×2 (09:46→20:06)
[2021-12-23] MEDS: ZIPRASIDONE 40 MG CAPSULE PO SCH ×2 (09:46→20:05)
[2021-12-23] MEDS: THIAMINE HCL 100 MG TABLET (FP) PO SCH (20:05)
[2021-12-23] MEDS: traZODone HCL 100 MG TABLET (FP) PO SCH (20:06)
[2021-12-23] MEDS: SUVOREXANT 10 MG TABLET PO PRN (20:07)
[2021-12-23] MEDS: MELATONIN 5 MG TABLETS PO SCH (21:36)
[2021-12-24] MEDS: ACAMPROSATE CALCIUM 333 MG TABLET.DR PO SCH ×3 (06:16→21:27)
[2021-12-24] MEDS: DARUNAVIR/COB/EMTRI/TENOF (SYMTUZA) TABLET (NF) PO SCH (07:04)
[2021-12-24] MEDS: PRENATAL VITAMINS W/ FOLIC ACID TABLET (FP) PO SCH (09:41)
[2021-12-24] MEDS: ZIPRASIDONE 40 MG CAPSULE PO SCH ×2 (09:41→19:38)
[2021-12-24] MEDS: DOCUSATE SODIUM 100 MG CAPSULE (FP) PO SCH ×2 (09:42→19:38)
[2021-12-24] MEDS: traZODone HCL 100 MG TABLET (FP) PO SCH (19:38)
[2021-12-24] MEDS: THIAMINE HCL 100 MG TABLET (FP) PO SCH (19:39)
[2021-12-24] MEDS: MELATONIN 5 MG TABLETS PO SCH (19:39)
[2021-12-24] MEDS: SUVOREXANT 10 MG TABLET PO PRN (19:39)
[2021-12-25] MEDS: ACAMPROSATE CALCIUM 333 MG TABLET.DR PO SCH ×2 (06:13→20:10)
[2021-12-25] MEDS: DARUNAVIR/COB/EMTRI/TENOF (SYMTUZA) TABLET (NF) PO SCH (07:01)
[2021-12-25] MEDS: PRENATAL VITAMINS W/ FOLIC ACID TABLET (FP) PO SCH (09:57)
[2021-12-25] MEDS: ZIPRASIDONE 40 MG CAPSULE PO SCH ×2 (09:57→20:10)
[2021-12-25] MEDS: DOCUSATE SODIUM 100 MG CAPSULE (FP) PO SCH (09:57)
[2021-12-25] MEDS: hydrOXYzine PAMOATE 25 MG CAPSULE (FP) PO PRN (10:41)
[2021-12-25] MEDS ORDERED: ACAMPROSATE CALCIUM 333 MG TABLET.DR PO ONE (12:59)
[2021-12-25] MEDS: SUVOREXANT 10 MG TABLET PO PRN (20:11)
[2021-12-25] MEDS: MELATONIN 5 MG TABLETS PO SCH (20:11)
[2021-12-25] MEDS: traZODone HCL 100 MG TABLET (FP) PO SCH (20:11)
[2021-12-25] MEDS: THIAMINE HCL 100 MG TABLET (FP) PO SCH (20:11)
[2021-12-26] MEDS: ACAMPROSATE CALCIUM 333 MG TABLET.DR PO SCH ×3 (06:11→19:58)
[2021-12-26] MEDS: DARUNAVIR/COB/EMTRI/TENOF (SYMTUZA) TABLET (NF) PO SCH (07:21)
[2021-12-26] MEDS: ZIPRASIDONE 40 MG CAPSULE PO SCH ×2 (09:43→19:57)
[2021-12-26] MEDS: PRENATAL VITAMINS W/ FOLIC ACID TABLET (FP) PO SCH (09:44)
[2021-12-26] MEDS: hydrOXYzine PAMOATE 25 MG CAPSULE (FP) PO PRN (19:57)
[2021-12-26] MEDS: THIAMINE HCL 100 MG TABLET (FP) PO SCH (19:57)
[2021-12-26] MEDS: traZODone HCL 100 MG TABLET (FP) PO SCH (19:57)
[2021-12-26] MEDS: MELATONIN 5 MG TABLETS PO SCH (20:00)
[2021-12-27] MEDS: ACAMPROSATE CALCIUM 333 MG TABLET.DR PO SCH ×3 (06:26→20:02)
[2021-12-27] MEDS: PANTOPRAZOLE 40 MG TABLET PO SCH (06:32)
[2021-12-27] MEDS: DARUNAVIR/COB/EMTRI/TENOF (SYMTUZA) TABLET (NF) PO SCH (07:00)
[2021-12-27] MEDS: ZIPRASIDONE 40 MG CAPSULE PO SCH ×2 (09:19→20:02)
[2021-12-27] MEDS: PRENATAL VITAMINS W/ FOLIC ACID TABLET (FP) PO SCH (09:19)
[2021-12-27] MEDS: THIAMINE HCL 100 MG TABLET (FP) PO SCH (20:02)
[2021-12-27] MEDS: traZODone HCL 100 MG TABLET (FP) PO SCH (20:02)
[2021-12-27] MEDS: SUVOREXANT 10 MG TABLET PO PRN (20:03)
[2021-12-27] MEDS: MELATONIN 5 MG TABLETS PO SCH (20:08)
[2021-12-28] MEDS: ACAMPROSATE CALCIUM 333 MG TABLET.DR PO SCH ×3 (05:51→20:05)
[2021-12-28] MEDS: PANTOPRAZOLE 40 MG TABLET PO SCH (06:30)
[2021-12-28] MEDS: DARUNAVIR/COB/EMTRI/TENOF (SYMTUZA) TABLET (NF) PO SCH (07:47)
[2021-12-28] MEDS: PRENATAL VITAMINS W/ FOLIC ACID TABLET (FP) PO SCH (09:42)
[2021-12-28] MEDS: ZIPRASIDONE 40 MG CAPSULE PO SCH ×2 (09:43→20:04)
[2021-12-28] MEDS: traZODone HCL 100 MG TABLET (FP) PO SCH (20:04)
[2021-12-28] MEDS: THIAMINE HCL 100 MG TABLET (FP) PO SCH (20:04)
[2021-12-28] MEDS: MELATONIN 5 MG TABLETS PO SCH (20:07)
[2021-12-29] MEDS: ACAMPROSATE CALCIUM 333 MG TABLET.DR PO SCH ×3 (06:05→20:38)
[2021-12-29] MEDS: PANTOPRAZOLE 40 MG TABLET PO SCH (07:14)
[2021-12-29] MEDS: DARUNAVIR/COB/EMTRI/TENOF (SYMTUZA) TABLET (NF) PO SCH (07:15)
[2021-12-29] MEDS: ZIPRASIDONE 40 MG CAPSULE PO SCH ×2 (09:29→20:38)
[2021-12-29] MEDS: PRENATAL VITAMINS W/ FOLIC ACID TABLET (FP) PO SCH (09:30)
[2021-12-29] MEDS: hydrOXYzine PAMOATE 25 MG CAPSULE (FP) PO PRN (11:33)
[2021-12-29] MEDS: THIAMINE HCL 100 MG TABLET (FP) PO SCH (20:38)
[2021-12-29] MEDS: MELATONIN 5 MG TABLETS PO SCH (20:41)
[2021-12-29] MEDS: traZODone HCL 50 MG TABLET (FP) PO SCH (21:01)
[2021-12-29] MEDS ORDERED: SUVOREXANT 10 MG TABLET PO PRN (22:00)
[2021-12-30] MEDS: ACAMPROSATE CALCIUM 333 MG TABLET.DR PO SCH ×3 (06:03→19:49)
[2021-12-30] MEDS: PANTOPRAZOLE 40 MG TABLET PO SCH (06:33)
[2021-12-30] MEDS: DARUNAVIR/COB/EMTRI/TENOF (SYMTUZA) TABLET (NF) PO SCH (07:12)
[2021-12-30] MEDS: hydrOXYzine PAMOATE 25 MG CAPSULE (FP) PO PRN (09:55)
[2021-12-30] MEDS: PRENATAL VITAMINS W/ FOLIC ACID TABLET (FP) PO SCH (09:55)
[2021-12-30] MEDS: ZIPRASIDONE 40 MG CAPSULE PO SCH ×2 (09:55→19:49)
[2021-12-30] MEDS: MELATONIN 5 MG TABLETS PO SCH (19:49)
[2021-12-30] MEDS: THIAMINE HCL 100 MG TABLET (FP) PO SCH (19:50)
[2021-12-30] MEDS: traZODone HCL 50 MG TABLET (FP) PO SCH (21:00)
[2021-12-31] MEDS: ACAMPROSATE CALCIUM 333 MG TABLET.DR PO SCH (05:59)
[2021-12-31 06:31] VITALS: BP 125/86; PULSE 69; TEMP 97.5
[2021-12-31] MEDS: PANTOPRAZOLE 40 MG TABLET PO SCH (06:49)
[2021-12-31] MEDS: DARUNAVIR/COB/EMTRI/TENOF (SYMTUZA) TABLET (NF) PO SCH (07:00)
== END 2021-12-31 06:57 | disposition home or self-care (01) | DRG 895 ==
LOC: YASAS 09:56 → Y3E 10:00
PROVIDERS: ADMIT Allergy & Immunology; ATTEND Psychiatry & Neurology Pain Medicine
PROC: HZ42ZZZ Group Counseling for Substance Abuse Treatment, Cognitive-Behavioral (ICD-10-PCS; principal; 2021-12-17)
DX: F10.20 Alcohol dependence, uncomplicated (principal); F14.20 Cocaine dependence, uncomplicated; F12.20 Cannabis dependence, uncomplicated; F43.10 Post-traumatic stress disorder, unspecified; F25.0 Schizoaffective disorder, bipolar type; F31.9 Bipolar disorder, unspecified; Z21 Asymptomatic human immunodeficiency virus [HIV] infection status; K21.9 Gastro-esophageal reflux disease without esophagitis; G40.909 Epilepsy, unspecified, not intractable, without status epilepticus; Z87.438 Personal history of other diseases of male genital organs; Z86.19 Personal history of other infectious and parasitic diseases; Z86.11 Personal history of tuberculosis; Z56.0 Unemployment, unspecified
CPT/HCPCS: 82962

== ENCOUNTER 2022-02-23 08:58 | Inpatient (IN) | payer OTHER ==
[2022-02-23 10:28] VITALS: BMI 32.5
[2022-02-23] MEDS ORDERED: DICYCLOMINE HCL 10 MG CAPSULE PO PRN (10:57)
[2022-02-23] MEDS ORDERED: METHOCARBAMOL 500 MG TABLET PO PRN (10:57)
[2022-02-23] MEDS ORDERED: MAG HYDROX/AL HYDROX/SIMETH 30 ML UNIT-DOSE CUP PO PRN (10:57)
[2022-02-23] MEDS ORDERED: IBUPROFEN 400 MG TABLET (FP) PO PRN (10:57)
[2022-02-23] MEDS ORDERED: ACETAMINOPHEN 325 MG TABLET (FP) PO PRN ×2 (10:57)
[2022-02-23] MEDS ORDERED: BENZOCAINE/MENTHOL (CHLORASEPTIC ) LOZENGE MM PRN (10:57)
[2022-02-23] MEDS ORDERED: LOPERAMIDE HCL 2 MG CAPSULE PO PRN (10:57)
[2022-02-23] MEDS ORDERED: chlordiazePOXIDE HCL 25 MG CAPSULE PO PRN (10:57)
[2022-02-23] MEDS ORDERED: MAGNESIUM HYDROX 2400MG/30ML ORAL SUSPENSION 30 ML CUP PO PRN (10:57)
[2022-02-23] MEDS ORDERED: MAGNESIUM CITRATE 300 ML BOTTLE PO PRN (10:57)
[2022-02-23] MEDS ORDERED: ONDANSETRON *ODT* 4 MG TABLET SL PRN (10:57)
[2022-02-23] MEDS ORDERED: IBUPROFEN 600 MG TABLET (FP) PO PRN (10:57)
[2022-02-23] MEDS ORDERED: BISMUTH SUBSALICYLATE 524 MG/30 ML PO PRN (10:57)
[2022-02-23] MEDS: chlordiazePOXIDE HCL 25 MG CAPSULE PO SCH ×3 (12:20→22:12)
[2022-02-23] MEDS: PRENATAL VITAMINS W/ FOLIC ACID TABLET (FP) PO SCH (12:20)
[2022-02-23] MEDS: hydrOXYzine PAMOATE 25 MG CAPSULE (FP) PO SCH ×3 (13:34→22:13)
[2022-02-23 17:56] LABS: HEMATOCRIT 43.6 % (35.4-49); HEMOGLOBIN 14.8 GM/dL (11.7-16.9); MCH 29.5 pg (25.7-33.7); MEAN CELL VOLUME 86.6 fl (80-96); MEAN PLT VOLUME 7.6 fl (7.5-11.1); PLATELET COUNT 210 10^3/uL (134-434); RBC 5.03 M/mm3 (4.00-5.60); WHITE BLOOD COUNT 4.3 K/mm3 (4.0-10.0)
[2022-02-23 18:08] LABS: CALCIUM 8.7 mg/dL (8.5-10.1)
[2022-02-23 18:09] LABS: ALBUMIN 3.5 g/dl (3.4-5.0); BLOOD UREA NITROGEN 8.5 mg/dL (7-18)
[2022-02-23 18:11] LABS: CREATININE 1.4 mg/dL (0.55-1.3)
[2022-02-23 18:13] LABS: BILIRUBIN,TOTAL 0.2 mg/dL (0.2-1); TOT PROT 6.9 g/dl (6.4-8.2)
[2022-02-23] MEDS: traZODone HCL 100 MG TABLET (FP) PO SCH (22:11)
[2022-02-23] MEDS: THIAMINE HCL 100 MG TABLET (FP) PO SCH (22:11)
[2022-02-23] MEDS: ZIPRASIDONE 20 MG CAPSULE PO SCH (22:11)
[2022-02-23] MEDS: MELATONIN 5 MG TABLETS PO SCH (22:13)
[2022-02-24] MEDS: chlordiazePOXIDE HCL 25 MG CAPSULE PO SCH ×4 (05:27→22:17)
[2022-02-24] MEDS: hydrOXYzine PAMOATE 25 MG CAPSULE (FP) PO SCH ×5 (05:27→22:59)
[2022-02-24] MEDS: ZIPRASIDONE 20 MG CAPSULE PO SCH ×2 (08:56→22:18)
[2022-02-24] MEDS: PRENATAL VITAMINS W/ FOLIC ACID TABLET (FP) PO SCH (10:14)
[2022-02-24] MEDS: traZODone HCL 100 MG TABLET (FP) PO SCH (22:18)
[2022-02-24] MEDS: THIAMINE HCL 100 MG TABLET (FP) PO SCH (22:18)
[2022-02-24] MEDS: MELATONIN 5 MG TABLETS PO SCH (22:58)
[2022-02-25] MEDS: chlordiazePOXIDE HCL 25 MG CAPSULE PO SCH ×4 (05:46→22:18)
[2022-02-25] MEDS: hydrOXYzine PAMOATE 25 MG CAPSULE (FP) PO SCH ×5 (05:46→22:17)
[2022-02-25] MEDS: ZIPRASIDONE 20 MG CAPSULE PO SCH ×2 (08:17→18:39)
[2022-02-25] MEDS: PRENATAL VITAMINS W/ FOLIC ACID TABLET (FP) PO SCH (10:30)
[2022-02-25] MEDS: THIAMINE HCL 100 MG TABLET (FP) PO SCH (22:17)
[2022-02-25] MEDS: MELATONIN 5 MG TABLETS PO SCH (22:17)
[2022-02-25] MEDS: traZODone HCL 100 MG TABLET (FP) PO SCH (22:18)
[2022-02-26] MEDS ORDERED: chlordiazePOXIDE HCL 10 MG CAPSULE PO PRN
[2022-02-26] MEDS: hydrOXYzine PAMOATE 25 MG CAPSULE (FP) PO SCH ×5 (05:36→22:10)
[2022-02-26] MEDS: chlordiazePOXIDE HCL 10 MG CAPSULE PO SCH ×4 (05:36→22:10)
[2022-02-26] MEDS: ZIPRASIDONE 20 MG CAPSULE PO SCH ×2 (07:03→17:57)
[2022-02-26] MEDS: PRENATAL VITAMINS W/ FOLIC ACID TABLET (FP) PO SCH (10:43)
[2022-02-26 17:20] VITALS: TEMP 98.6
[2022-02-26 21:21] VITALS: BP 112/73; PULSE 73; RESP 16
[2022-02-26] MEDS: THIAMINE HCL 100 MG TABLET (FP) PO SCH (22:10)
[2022-02-26] MEDS: traZODone HCL 100 MG TABLET (FP) PO SCH (22:10)
[2022-02-26] MEDS: MELATONIN 5 MG TABLETS PO SCH (22:10)
[2022-02-27] MEDS ORDERED: chlordiazePOXIDE HCL 10 MG CAPSULE PO SCH (05:00)
[2022-02-27] MEDS: hydrOXYzine PAMOATE 25 MG CAPSULE (FP) PO SCH (08:15)
[2022-02-28] MEDS ORDERED: chlordiazePOXIDE HCL 10 MG CAPSULE PO ONE (05:00)
== END 2022-02-27 08:46 | disposition home or self-care (01) | DRG 897 ==
LOC: YASAS 08:58 → Y3N 11:14
PROVIDERS: ADMIT Allergy & Immunology; ATTEND Surgery
PROC: HZ2ZZZZ Detoxification Services for Substance Abuse Treatment (ICD-10-PCS; principal; 2022-02-23)
DX: F10.230 Alcohol dependence with withdrawal, uncomplicated (principal); F14.20 Cocaine dependence, uncomplicated; F12.20 Cannabis dependence, uncomplicated; F25.1 Schizoaffective disorder, depressive type; F31.9 Bipolar disorder, unspecified; F43.10 Post-traumatic stress disorder, unspecified; F41.9 Anxiety disorder, unspecified; Z21 Asymptomatic human immunodeficiency virus [HIV] infection status; Z86.19 Personal history of other infectious and parasitic diseases; Z86.11 Personal history of tuberculosis; Z88.8 Allergy status to other drugs, medicaments and biological substances; Z88.6 Allergy status to analgesic agent; Z91.410 Personal history of adult physical and sexual abuse
CPT/HCPCS: 36415; 71046-TC-FY; 80053; 82540; 85027; 86593; 86780; C9803-CS; U0003; U0005

== ENCOUNTER 2022-05-15 13:15 | Inpatient (IN) | payer OTHER ==
[2022-05-15 15:27] VITALS: BMI 32.1
[2022-05-15] MEDS ORDERED: P-EPHED 60MG/TRIPROLIDI 2.5MG TABLET PO PRN (18:02)
[2022-05-15] MEDS ORDERED: DICYCLOMINE HCL 10 MG CAPSULE PO PRN (18:02)
[2022-05-15] MEDS ORDERED: LOPERAMIDE HCL 2 MG CAPSULE PO PRN (18:02)
[2022-05-15] MEDS ORDERED: IBUPROFEN 400 MG TABLET (FP) PO PRN (18:02)
[2022-05-15] MEDS ORDERED: METHOCARBAMOL 500 MG TABLET PO PRN (18:02)
[2022-05-15] MEDS ORDERED: BENZOCAINE/MENTHOL (CHLORASEPTIC ) LOZENGE MM PRN (18:02)
[2022-05-15] MEDS ORDERED: BISMUTH SUBSALICYLATE 524 MG/30 ML PO PRN (18:02)
[2022-05-15] MEDS ORDERED: MAGNESIUM HYDROX 2400MG/30ML ORAL SUSPENSION 30 ML CUP PO PRN (18:02)
[2022-05-15] MEDS ORDERED: guaiFENesin 200 MG/10 ML 10 ML UNIT-DOSE CUPS PO PRN (18:02)
[2022-05-15] MEDS ORDERED: MAG HYDROX/AL HYDROX/SIMETH 30 ML UNIT-DOSE CUP PO PRN (18:02)
[2022-05-15] MEDS ORDERED: IBUPROFEN 600 MG TABLET (FP) PO PRN (18:02)
[2022-05-15] MEDS ORDERED: ZIPRASIDONE 20 MG CAPSULE PO ONE ×2 (19:15→22:45)
[2022-05-15] MEDS: hydrOXYzine PAMOATE 25 MG CAPSULE (FP) PO PRN (19:22)
[2022-05-15] MEDS: diazePAM 5 MG TABLET PO PRN (19:23)
[2022-05-15] MEDS ORDERED: ZIPRASIDONE 40 MG CAPSULE PO ONE (20:00)
[2022-05-15] MEDS ORDERED: traZODone HCL 50 MG TABLET (FP) PO ONE (22:00)
[2022-05-15] MEDS: THIAMINE HCL 100 MG TABLET (FP) PO SCH (22:36)
[2022-05-15] MEDS: diazePAM 5 MG TABLET PO SCH (22:39)
[2022-05-16] MEDS: diazePAM 5 MG TABLET PO SCH ×4 (05:50→22:25)
[2022-05-16] MEDS: PRENATAL VITAMINS W/ FOLIC ACID TABLET (FP) PO SCH (10:36)
[2022-05-16] MEDS: EMTRICITAB/RILPIVIRI/TENOF ALA (ODEFSEY) TABLET PO SCH (10:37)
[2022-05-16 13:04] LABS: MCH 28.4 pg (25.7-33.7); MCHC 34.1 g/dl (32.0-35.9); MEAN CELL VOLUME 83.4 fl (80-96); MEAN PLT VOLUME 7.6 fl (7.5-11.1); PLATELET COUNT 255 10^3/uL (134-434); RBC 5.27 M/mm3 (4.00-5.60); RDW 11.9 % (11.9-15.9); WHITE BLOOD COUNT 5.3 K/mm3 (4.0-10.0)
[2022-05-16 13:11] LABS: ALBUMIN 3.4 g/dl (3.4-5.0); CALCIUM 9.1 mg/dL (8.5-10.1)
[2022-05-16 13:12] LABS: BLOOD UREA NITROGEN 13.5 mg/dL (7-18)
[2022-05-16 13:14] LABS: CREATININE 1.3 mg/dL (0.55-1.3)
[2022-05-16 13:16] LABS: BILIRUBIN,TOTAL 0.7 mg/dL (0.2-1); TOT PROT 6.3 g/dl (6.4-8.2)
[2022-05-16] MEDS: ZIPRASIDONE 40 MG CAPSULE PO SCH ×2 (13:45→22:25)
[2022-05-16] MEDS: traZODone HCL 100 MG TABLET (FP) PO SCH (22:25)
[2022-05-16] MEDS: THIAMINE HCL 100 MG TABLET (FP) PO SCH (22:25)
[2022-05-16] MEDS: hydrOXYzine PAMOATE 25 MG CAPSULE (FP) PO PRN (22:26)
[2022-05-17] MEDS: diazePAM 5 MG TABLET PO SCH ×3 (06:02→22:23)
[2022-05-17] MEDS: ZIPRASIDONE 40 MG CAPSULE PO SCH ×2 (10:37→22:23)
[2022-05-17] MEDS: PRENATAL VITAMINS W/ FOLIC ACID TABLET (FP) PO SCH (10:37)
[2022-05-17] MEDS: EMTRICITAB/RILPIVIRI/TENOF ALA (ODEFSEY) TABLET PO SCH (10:37)
[2022-05-17] MEDS: diazePAM 5 MG TABLET PO PRN ×2 (10:39→17:56)
[2022-05-17] MEDS: hydrOXYzine PAMOATE 25 MG CAPSULE (FP) PO PRN (16:37)
[2022-05-17] MEDS: traZODone HCL 100 MG TABLET (FP) PO SCH (22:23)
[2022-05-17] MEDS: THIAMINE HCL 100 MG TABLET (FP) PO SCH (22:23)
[2022-05-18] MEDS: diazePAM 5 MG TABLET PO SCH ×2 (05:55→17:44)
[2022-05-18] MEDS: PRENATAL VITAMINS W/ FOLIC ACID TABLET (FP) PO SCH (10:47)
[2022-05-18] MEDS: ZIPRASIDONE 40 MG CAPSULE PO SCH ×2 (10:48→22:10)
[2022-05-18] MEDS: EMTRICITAB/RILPIVIRI/TENOF ALA (ODEFSEY) TABLET PO SCH (10:49)
[2022-05-18] MEDS: hydrOXYzine PAMOATE 25 MG CAPSULE (FP) PO PRN (12:17)
[2022-05-18] MEDS: THIAMINE HCL 100 MG TABLET (FP) PO SCH (22:10)
[2022-05-18] MEDS: traZODone HCL 100 MG TABLET (FP) PO SCH (22:10)
[2022-05-19] MEDS ORDERED: diazePAM 5 MG TABLET PO ONE (06:00)
[2022-05-19 09:06] VITALS: BP 102/67; PULSE 79; RESP 16; TEMP 97.5
[2022-05-19] MEDS: ZIPRASIDONE 40 MG CAPSULE PO SCH (10:02)
[2022-05-19] MEDS: PRENATAL VITAMINS W/ FOLIC ACID TABLET (FP) PO SCH (10:02)
[2022-05-19] MEDS: EMTRICITAB/RILPIVIRI/TENOF ALA (ODEFSEY) TABLET PO SCH (10:02)
== END 2022-05-19 10:13 | disposition home or self-care (01) | DRG 897 ==
LOC: YASAS 13:15 → Y3N 18:14
PROVIDERS: ADMIT Allergy & Immunology; ATTEND Surgery
PROC: HZ2ZZZZ Detoxification Services for Substance Abuse Treatment (ICD-10-PCS; principal; 2022-05-15)
DX: F10.230 Alcohol dependence with withdrawal, uncomplicated (principal); F14.20 Cocaine dependence, uncomplicated; F12.20 Cannabis dependence, uncomplicated; F19.24 Other psychoactive substance dependence with psychoactive substance-induced mood disorder; F31.9 Bipolar disorder, unspecified; F41.9 Anxiety disorder, unspecified; F43.10 Post-traumatic stress disorder, unspecified; Z21 Asymptomatic human immunodeficiency virus [HIV] infection status; Z86.19 Personal history of other infectious and parasitic diseases; Z86.11 Personal history of tuberculosis; Z88.8 Allergy status to other drugs, medicaments and biological substances; Z88.6 Allergy status to analgesic agent; Z91.014 Allergy to mammalian meats
CPT/HCPCS: 36415; 80053; 85027; C9803-CS; U0003; U0005

== ENCOUNTER 2022-07-11 08:51 | Inpatient (IN) | payer OTHER ==
[2022-07-11 10:49] VITALS: BMI 32.9
[2022-07-11] MEDS ORDERED: MAG HYDROX/AL HYDROX/SIMETH 30 ML UNIT-DOSE CUP PO PRN (12:39)
[2022-07-11] MEDS ORDERED: MAGNESIUM HYDROX 2400MG/30ML ORAL SUSPENSION 30 ML CUP PO PRN (12:39)
[2022-07-11] MEDS ORDERED: ONDANSETRON *ODT* 4 MG TABLET SL PRN (12:39)
[2022-07-11] MEDS ORDERED: IBUPROFEN 600 MG TABLET (FP) PO PRN (12:39)
[2022-07-11] MEDS ORDERED: METHOCARBAMOL 500 MG TABLET PO PRN (12:39)
[2022-07-11] MEDS ORDERED: chlordiazePOXIDE HCL 25 MG CAPSULE PO PRN (12:39)
[2022-07-11] MEDS ORDERED: BISMUTH SUBSALICYLATE 524 MG/30 ML PO PRN (12:39)
[2022-07-11] MEDS ORDERED: BENZOCAINE/MENTHOL (CHLORASEPTIC ) LOZENGE MM PRN (12:39)
[2022-07-11] MEDS ORDERED: DICYCLOMINE HCL 10 MG CAPSULE PO PRN (12:39)
[2022-07-11] MEDS ORDERED: NALOXONE HCL (KLOXXADO) 8 MG SPRAY NS PRN (12:39)
[2022-07-11] MEDS ORDERED: POLYETHYLENE GLYCOL (HEALTHYLAX) 3350 17 GM PACKET PO PRN (12:39)
[2022-07-11] MEDS ORDERED: IBUPROFEN 400 MG TABLET (FP) PO PRN (12:39)
[2022-07-11] MEDS ORDERED: hydrOXYzine PAMOATE 25 MG CAPSULE (FP) PO PRN (12:39)
[2022-07-11] MEDS ORDERED: LOPERAMIDE HCL 2 MG CAPSULE PO PRN (12:39)
[2022-07-11] MEDS: chlordiazePOXIDE HCL 25 MG CAPSULE PO SCH ×2 (17:33→22:14)
[2022-07-11] MEDS: THIAMINE HCL 100 MG TABLET (FP) PO SCH (22:14)
[2022-07-12] MEDS: chlordiazePOXIDE HCL 25 MG CAPSULE PO SCH ×4 (05:48→22:18)
[2022-07-12] MEDS ORDERED: hydrOXYzine PAMOATE 50 MG CAPSULE (FP) PO PRN (10:13)
[2022-07-12] MEDS: EMTRICITAB/RILPIVIRI/TENOF ALA (ODEFSEY) TABLET PO SCH (10:26)
[2022-07-12] MEDS: PRENATAL VITAMINS W/ FOLIC ACID TABLET (FP) PO SCH (10:26)
[2022-07-12 11:01] LABS: CALCIUM 9.3 mg/dL (8.5-10.1)
[2022-07-12 11:02] LABS: ALBUMIN 3.4 g/dl (3.4-5.0); BLOOD UREA NITROGEN 15.3 mg/dL (7-18)
[2022-07-12 11:03] LABS: HEMOGLOBIN 14.6 GM/dL (11.7-16.9); MCH 28.1 pg (25.7-33.7); MCHC 33.9 g/dl (32.0-35.9); MEAN PLT VOLUME 7.4 fl (7.5-11.1); PLATELET COUNT 285 10^3/uL (134-434); RBC 5.19 M/mm3 (4.00-5.60); RDW 13.4 % (11.9-15.9); WHITE BLOOD COUNT 4.8 K/mm3 (4.0-10.0)
[2022-07-12 11:05] LABS: CREATININE 1.2 mg/dL (0.55-1.3)
[2022-07-12 11:06] LABS: TOT PROT 6.3 g/dl (6.4-8.2)
[2022-07-12 11:07] LABS: BILIRUBIN,TOTAL 0.6 mg/dL (0.2-1)
[2022-07-12] MEDS: ZIPRASIDONE 40 MG CAPSULE PO SCH ×2 (11:23→22:20)
[2022-07-12] MEDS: THIAMINE HCL 100 MG TABLET (FP) PO SCH (22:20)
[2022-07-12] MEDS: traZODone HCL 100 MG TABLET (FP) PO SCH (22:21)
[2022-07-13] MEDS: chlordiazePOXIDE HCL 25 MG CAPSULE PO SCH ×4 (05:10→22:12)
[2022-07-13] MEDS: EMTRICITAB/RILPIVIRI/TENOF ALA (ODEFSEY) TABLET PO SCH (10:30)
[2022-07-13] MEDS: PRENATAL VITAMINS W/ FOLIC ACID TABLET (FP) PO SCH (10:30)
[2022-07-13] MEDS: ZIPRASIDONE 40 MG CAPSULE PO SCH ×2 (10:30→22:12)
[2022-07-13 21:04] VITALS: RESP 18
[2022-07-13] MEDS: THIAMINE HCL 100 MG TABLET (FP) PO SCH (22:12)
[2022-07-13] MEDS: traZODone HCL 100 MG TABLET (FP) PO SCH (22:12)
[2022-07-14] MEDS ORDERED: chlordiazePOXIDE HCL 10 MG CAPSULE PO PRN
[2022-07-14] MEDS: chlordiazePOXIDE HCL 10 MG CAPSULE PO SCH ×4 (05:17→22:02)
[2022-07-14] MEDS: PRENATAL VITAMINS W/ FOLIC ACID TABLET (FP) PO SCH (10:08)
[2022-07-14] MEDS: EMTRICITAB/RILPIVIRI/TENOF ALA (ODEFSEY) TABLET PO SCH (10:08)
[2022-07-14] MEDS: ZIPRASIDONE 40 MG CAPSULE PO SCH ×2 (10:08→22:02)
[2022-07-14] MEDS: THIAMINE HCL 100 MG TABLET (FP) PO SCH (22:03)
[2022-07-14] MEDS: traZODone HCL 100 MG TABLET (FP) PO SCH (22:03)
[2022-07-15] MEDS ORDERED: chlordiazePOXIDE HCL 10 MG CAPSULE PO SCH (05:00)
[2022-07-15 10:02] VITALS: BP 130/82; PULSE 72; TEMP 98.3
[2022-07-15] MEDS: PRENATAL VITAMINS W/ FOLIC ACID TABLET (FP) PO SCH (10:21)
[2022-07-15] MEDS: EMTRICITAB/RILPIVIRI/TENOF ALA (ODEFSEY) TABLET PO SCH (10:22)
[2022-07-15] MEDS: ZIPRASIDONE 40 MG CAPSULE PO SCH (10:22)
[2022-07-16] MEDS ORDERED: chlordiazePOXIDE HCL 10 MG CAPSULE PO ONE (05:00)
== END 2022-07-15 10:58 | disposition home or self-care (01) | DRG 897 ==
LOC: YASAS 08:51 → Y6N 13:34
PROVIDERS: ADMIT Allergy & Immunology; ATTEND Surgery
PROC: HZ2ZZZZ Detoxification Services for Substance Abuse Treatment (ICD-10-PCS; principal; 2022-07-11)
DX: F10.230 Alcohol dependence with withdrawal, uncomplicated (principal); F19.282 Other psychoactive substance dependence with psychoactive substance-induced sleep disorder; F31.9 Bipolar disorder, unspecified; F19.24 Other psychoactive substance dependence with psychoactive substance-induced mood disorder; F43.10 Post-traumatic stress disorder, unspecified; F41.9 Anxiety disorder, unspecified; Z21 Asymptomatic human immunodeficiency virus [HIV] infection status; Z62.810 Personal history of physical and sexual abuse in childhood; Z86.69 Personal history of other diseases of the nervous system and sense organs; Z86.19 Personal history of other infectious and parasitic diseases; Z88.6 Allergy status to analgesic agent; Z88.8 Allergy status to other drugs, medicaments and biological substances; Z91.014 Allergy to mammalian meats
CPT/HCPCS: 36415; 80053; 85027; 86593; 86780; C9803-CS; U0003; U0005

== ENCOUNTER 2022-09-10 11:02 | Inpatient (IN) | payer OTHER ==
[2022-09-10 11:34] VITALS: BMI 32.3
[2022-09-10] MEDS ORDERED: MAG HYDROX/AL HYDROX/SIMETH 30 ML UNIT-DOSE CUP PO PRN (11:48)
[2022-09-10] MEDS ORDERED: hydrOXYzine PAMOATE 25 MG CAPSULE (FP) PO PRN (11:48)
[2022-09-10] MEDS ORDERED: METHOCARBAMOL 500 MG TABLET PO PRN (11:48)
[2022-09-10] MEDS ORDERED: DICYCLOMINE HCL 10 MG CAPSULE PO PRN (11:48)
[2022-09-10] MEDS ORDERED: IBUPROFEN 600 MG TABLET (FP) PO PRN (11:48)
[2022-09-10] MEDS ORDERED: LOPERAMIDE HCL 2 MG CAPSULE PO PRN (11:48)
[2022-09-10] MEDS ORDERED: ONDANSETRON *ODT* 4 MG TABLET SL PRN (11:48)
[2022-09-10] MEDS ORDERED: BENZOCAINE/MENTHOL (CHLORASEPTIC ) LOZENGE MM PRN (11:48)
[2022-09-10] MEDS ORDERED: ACETAMINOPHEN 325 MG TABLET (FP) PO PRN ×2 (11:48)
[2022-09-10] MEDS ORDERED: diazePAM 5 MG TABLET PO PRN (11:48)
[2022-09-10] MEDS ORDERED: MAGNESIUM HYDROX 2400MG/30ML ORAL SUSPENSION 30 ML CUP PO PRN (11:48)
[2022-09-10] MEDS ORDERED: IBUPROFEN 400 MG TABLET (FP) PO PRN (11:48)
[2022-09-10] MEDS ORDERED: BISMUTH SUBSALICYLATE 262 MG/15 ML BTL PO PRN (11:48)
[2022-09-10] MEDS ORDERED: NALOXONE HCL (KLOXXADO) 8 MG SPRAY NS PRN (11:48)
[2022-09-10] MEDS ORDERED: POLYETHYLENE GLYCOL (HEALTHYLAX) 3350 17 GM PACKET PO PRN (11:48)
[2022-09-10] MEDS ORDERED: PRENATAL VITAMINS W/ FOLIC ACID TABLET (FP) PO ONE (13:43)
[2022-09-10] MEDS: PRENATAL VITAMINS W/ FOLIC ACID TABLET (FP) PO SCH (13:46)
[2022-09-10 15:25] LABS: HEMATOCRIT 44.8 % (35.4-49); HEMOGLOBIN 15.5 GM/dL (11.7-16.9); MCH 29.2 pg (25.7-33.7); MCHC 34.7 g/dl (32.0-35.9); MEAN CELL VOLUME 84.3 fl (80-96); MEAN PLT VOLUME 7.5 fl (7.5-11.1); PLATELET COUNT 280 10^3/uL (134-434); RBC 5.31 M/mm3 (4.00-5.60); RDW 13.2 % (11.9-15.9); WHITE BLOOD COUNT 5.2 K/mm3 (4.0-10.0)
[2022-09-10 15:52] LABS: ALBUMIN 3.9 g/dl (3.4-5.0); BLOOD UREA NITROGEN 5.5 mg/dL (7-18); CALCIUM 8.7 mg/dL (8.5-10.1)
[2022-09-10 15:55] LABS: CREATININE 1.1 mg/dL (0.55-1.3)
[2022-09-10 15:57] LABS: BILIRUBIN,TOTAL 0.8 mg/dL (0.2-1); TOT PROT 7.5 g/dl (6.4-8.2)
[2022-09-10] MEDS: diazePAM 5 MG TABLET PO SCH ×2 (17:44→22:18)
[2022-09-10] MEDS ORDERED: MELATONIN 5 MG TABLETS PO SCH (22:00)
[2022-09-10] MEDS: THIAMINE HCL 100 MG TABLET (FP) PO SCH (22:18)
[2022-09-11] MEDS: diazePAM 5 MG TABLET PO SCH ×4 (05:51→22:27)
[2022-09-11] MEDS: PRENATAL VITAMINS W/ FOLIC ACID TABLET (FP) PO SCH (10:51)
[2022-09-11] MEDS: LACTULOSE 20 GM/30 ML UDC (FOR ORAL USE ONLY) PO SCH ×4 (10:52→22:27)
[2022-09-11] MEDS: EMTRICITAB/RILPIVIRI/TENOF ALA (ODEFSEY) TABLET PO SCH (17:55)
[2022-09-11] MEDS: ZIPRASIDONE 40 MG CAPSULE PO SCH (20:57)
[2022-09-11] MEDS: THIAMINE HCL 100 MG TABLET (FP) PO SCH (22:27)
[2022-09-11] MEDS: traZODone HCL 100 MG TABLET (FP) PO SCH (22:27)
[2022-09-12] MEDS: diazePAM 5 MG TABLET PO SCH ×3 (05:51→21:35)
[2022-09-12] MEDS: EMTRICITAB/RILPIVIRI/TENOF ALA (ODEFSEY) TABLET PO SCH (07:48)
[2022-09-12] MEDS: PRENATAL VITAMINS W/ FOLIC ACID TABLET (FP) PO SCH (10:44)
[2022-09-12] MEDS: LACTULOSE 20 GM/30 ML UDC (FOR ORAL USE ONLY) PO SCH ×4 (10:44→21:35)
[2022-09-12] MEDS: ZIPRASIDONE 40 MG CAPSULE PO SCH ×2 (10:44→21:34)
[2022-09-12] MEDS: hydrOXYzine PAMOATE 50 MG CAPSULE (FP) PO PRN (12:09)
[2022-09-12] MEDS: THIAMINE HCL 100 MG TABLET (FP) PO SCH (21:35)
[2022-09-12] MEDS: traZODone HCL 100 MG TABLET (FP) PO SCH (21:35)
[2022-09-13] MEDS ORDERED: diazePAM 5 MG TABLET PO SCH (06:00)
[2022-09-13] MEDS: EMTRICITAB/RILPIVIRI/TENOF ALA (ODEFSEY) TABLET PO SCH (07:27)
[2022-09-13 09:16] VITALS: BP 129/90; PULSE 82; RESP 16; TEMP 98
[2022-09-13] MEDS: PRENATAL VITAMINS W/ FOLIC ACID TABLET (FP) PO SCH (10:36)
[2022-09-13] MEDS: LACTULOSE 20 GM/30 ML UDC (FOR ORAL USE ONLY) PO SCH (10:38)
[2022-09-13] MEDS: ZIPRASIDONE 40 MG CAPSULE PO SCH (11:06)
[2022-09-13] MEDS: hydrOXYzine PAMOATE 50 MG CAPSULE (FP) PO PRN (11:06)
[2022-09-14] MEDS ORDERED: diazePAM 5 MG TABLET PO ONE (06:00)
== END 2022-09-13 13:06 | disposition left against medical advice (07) | DRG 894 ==
LOC: YASAS 11:02 → Y3N 13:01
PROVIDERS: ADMIT Allergy & Immunology; ATTEND Surgery
PROC: HZ2ZZZZ Detoxification Services for Substance Abuse Treatment (ICD-10-PCS; principal; 2022-09-10)
DX: F10.230 Alcohol dependence with withdrawal, uncomplicated (principal); F13.20 Sedative, hypnotic or anxiolytic dependence, uncomplicated; F14.20 Cocaine dependence, uncomplicated; F19.282 Other psychoactive substance dependence with psychoactive substance-induced sleep disorder; E72.20 Disorder of urea cycle metabolism, unspecified; F12.20 Cannabis dependence, uncomplicated; F19.24 Other psychoactive substance dependence with psychoactive substance-induced mood disorder; F43.10 Post-traumatic stress disorder, unspecified; Z21 Asymptomatic human immunodeficiency virus [HIV] infection status; Z86.19 Personal history of other infectious and parasitic diseases; Z86.11 Personal history of tuberculosis; Z88.8 Allergy status to other drugs, medicaments and biological substances; Z88.6 Allergy status to analgesic agent; Z91.410 Personal history of adult physical and sexual abuse
CPT/HCPCS: 36415; 80053; 82140; 85027; 86593; 86780; 87811; C9803-CS; U0003; U0005

== ENCOUNTER 2022-11-17 14:08 | Inpatient (IN) | payer OTHER ==
[2022-11-17 15:24] VITALS: BMI 31.6
[2022-11-17] MEDS ORDERED: LOPERAMIDE HCL 2 MG CAPSULE PO PRN (17:47)
[2022-11-17] MEDS ORDERED: BENZONATATE 200 MG CAPSULE PO PRN (17:47)
[2022-11-17] MEDS ORDERED: DICYCLOMINE HCL 10 MG CAPSULE PO PRN (17:47)
[2022-11-17] MEDS ORDERED: P-EPHED 60MG/TRIPROLIDI 2.5MG TABLET PO PRN (17:47)
[2022-11-17] MEDS ORDERED: IBUPROFEN 600 MG TABLET (FP) PO PRN (17:47)
[2022-11-17] MEDS ORDERED: BENZOCAINE/MENTHOL (CHLORASEPTIC ) LOZENGE MM PRN (17:47)
[2022-11-17] MEDS ORDERED: ONDANSETRON *ODT* 4 MG TABLET SL PRN (17:47)
[2022-11-17] MEDS ORDERED: guaiFENesin 600 MG TABLET.ER (FP) PO PRN (17:47)
[2022-11-17] MEDS ORDERED: MAG HYDROX/AL HYDROX/SIMETH 30 ML UNIT-DOSE CUP PO PRN (17:47)
[2022-11-17] MEDS ORDERED: MAGNESIUM HYDROX 2400MG/30ML ORAL SUSPENSION 30 ML CUP PO PRN (17:47)
[2022-11-17] MEDS ORDERED: POLYETHYLENE GLYCOL (HEALTHYLAX) 3350 17 GM PACKET PO PRN (17:47)
[2022-11-17] MEDS ORDERED: BISMUTH SUBSALICYLATE 524 MG/30 ML PO PRN (17:47)
[2022-11-17] MEDS ORDERED: IBUPROFEN 400 MG TABLET (FP) PO PRN (17:47)
[2022-11-17] MEDS ORDERED: diazePAM 5 MG TABLET PO PRN (17:50)
[2022-11-17] MEDS: hydrOXYzine PAMOATE 25 MG CAPSULE (FP) PO PRN (19:21)
[2022-11-17] MEDS ORDERED: traZODone HCL 100 MG TABLET (FP) PO ONE (22:00)
[2022-11-17] MEDS ORDERED: ZIPRASIDONE 40 MG CAPSULE PO ONE (22:00)
[2022-11-17] MEDS: THIAMINE HCL 100 MG TABLET (FP) PO SCH (22:29)
[2022-11-17] MEDS: diazePAM 5 MG TABLET PO SCH (22:30)
[2022-11-17] MEDS: MELATONIN 5 MG TABLETS PO SCH (22:33)
[2022-11-18] MEDS: diazePAM 5 MG TABLET PO SCH ×4 (05:46→23:16)
[2022-11-18] MEDS: EMTRICITAB/RILPIVIRI/TENOF ALA (ODEFSEY) TABLET PO SCH (08:07)
[2022-11-18] MEDS: PRENATAL VITAMINS W/ FOLIC ACID TABLET (FP) PO SCH (10:33)
[2022-11-18] MEDS: hydrOXYzine PAMOATE 25 MG CAPSULE (FP) PO PRN (10:35)
[2022-11-18] MEDS ORDERED: ZIPRASIDONE 40 MG CAPSULE PO SCH (10:45)
[2022-11-18] MEDS ORDERED: ZIPRASIDONE 40 MG CAPSULE PO ONE (10:46)
[2022-11-18 11:21] LABS: POTASSIUM 4.2 mmol/L (3.5-5.1)
[2022-11-18 11:22] LABS: HEMATOCRIT 44.9 % (35.4-49); HEMOGLOBIN 15.3 GM/dL (11.7-16.9); MCH 28.9 pg (25.7-33.7); MCHC 34.1 g/dl (32.0-35.9); MEAN CELL VOLUME 84.6 fl (80-96); MEAN PLT VOLUME 7.4 fl (7.5-11.1); PLATELET COUNT 273 10^3/uL (134-434); RBC 5.31 M/mm3 (4.00-5.60); RDW 13.8 % (11.9-15.9); WHITE BLOOD COUNT 5.2 K/mm3 (4.0-10.0)
[2022-11-18 11:23] LABS: ALBUMIN 3.5 g/dl (3.4-5.0)
[2022-11-18 11:24] LABS: BLOOD UREA NITROGEN 10.6 mg/dL (7-18)
[2022-11-18 11:25] LABS: CALCIUM 8.9 mg/dL (8.5-10.1)
[2022-11-18 11:27] LABS: CREATININE 1.2 mg/dL (0.55-1.3)
[2022-11-18 11:28] LABS: BILIRUBIN,TOTAL 0.7 mg/dL (0.2-1); TOT PROT 6.7 g/dl (6.4-8.2)
[2022-11-18] MEDS: traZODone HCL 100 MG TABLET (FP) PO SCH ×2 (20:29→22:15)
[2022-11-18] MEDS: ZIPRASIDONE 40 MG CAPSULE PO SCH (20:29)
[2022-11-18] MEDS ORDERED: traZODone HCL 100 MG TABLET (FP) PO SCH (22:00)
[2022-11-18] MEDS: THIAMINE HCL 100 MG TABLET (FP) PO SCH (22:15)
[2022-11-18] MEDS: MELATONIN 5 MG TABLETS PO SCH (23:15)
[2022-11-19] MEDS ORDERED: diazePAM 5 MG TABLET PO SCH (06:00)
[2022-11-19] MEDS: EMTRICITAB/RILPIVIRI/TENOF ALA (ODEFSEY) TABLET PO SCH (08:51)
[2022-11-19] MEDS: ZIPRASIDONE 40 MG CAPSULE PO SCH (09:43)
[2022-11-19] MEDS: PRENATAL VITAMINS W/ FOLIC ACID TABLET (FP) PO SCH (09:43)
[2022-11-19] MEDS: hydrOXYzine PAMOATE 25 MG CAPSULE (FP) PO PRN (09:47)
[2022-11-19 10:03] VITALS: BP 136/87; PULSE 80; RESP 17; TEMP 98.1
[2022-11-20] MEDS ORDERED: diazePAM 5 MG TABLET PO SCH (06:00)
[2022-11-21] MEDS ORDERED: diazePAM 5 MG TABLET PO ONE (06:00)
== END 2022-11-19 10:26 | disposition left against medical advice (07) | DRG 894 ==
LOC: YASAS 14:08 → Y6N 18:15
PROVIDERS: ADMIT Allergy & Immunology; ATTEND Surgery
PROC: HZ2ZZZZ Detoxification Services for Substance Abuse Treatment (ICD-10-PCS; principal; 2022-11-17)
DX: F10.230 Alcohol dependence with withdrawal, uncomplicated (principal); F14.20 Cocaine dependence, uncomplicated; F19.282 Other psychoactive substance dependence with psychoactive substance-induced sleep disorder; F19.280 Other psychoactive substance dependence with psychoactive substance-induced anxiety disorder; F12.20 Cannabis dependence, uncomplicated; F31.9 Bipolar disorder, unspecified; F43.10 Post-traumatic stress disorder, unspecified; R76.8 Other specified abnormal immunological findings in serum; Z62.810 Personal history of physical and sexual abuse in childhood; Z86.19 Personal history of other infectious and parasitic diseases; Z86.69 Personal history of other diseases of the nervous system and sense organs; Z88.8 Allergy status to other drugs, medicaments and biological substances; Z88.6 Allergy status to analgesic agent; Z86.11 Personal history of tuberculosis
CPT/HCPCS: 36415; 80053; 85027; 86593; 86780; 87811; C9803-CS; U0003; U0005

== ENCOUNTER 2023-01-04 08:36 | Inpatient (IN) | payer OTHER ==
[2023-01-04 09:26] VITALS: BMI 31.9
[2023-01-04] MEDS ORDERED: IBUPROFEN 400 MG TABLET (FP) PO PRN ×2 (10:39)
[2023-01-04] MEDS ORDERED: NALOXONE HCL 0.4 MG/ML VIAL IM PRN (10:39)
[2023-01-04] MEDS ORDERED: METHOCARBAMOL 500 MG TABLET PO PRN (10:39)
[2023-01-04] MEDS ORDERED: ONDANSETRON *ODT* 4 MG TABLET SL PRN (10:39)
[2023-01-04] MEDS ORDERED: BENZOCAINE/MENTHOL (CHLORASEPTIC ) LOZENGE MM PRN (10:39)
[2023-01-04] MEDS ORDERED: POLYETHYLENE GLYCOL (HEALTHYLAX) 3350 17 GM PACKET PO PRN (10:39)
[2023-01-04] MEDS ORDERED: MAG HYDROX/AL HYDROX/SIMETH 30 ML UNIT-DOSE CUP PO PRN (10:39)
[2023-01-04] MEDS ORDERED: NALOXONE HCL (KLOXXADO) 8 MG SPRAY NS PRN (10:39)
[2023-01-04] MEDS ORDERED: COLLOIDAL OATMEAL 1 BAR EACH TP PRN (10:39)
[2023-01-04] MEDS ORDERED: MAGNESIUM HYDROX 2400MG/30ML ORAL SUSPENSION 30 ML CUP PO PRN (10:39)
[2023-01-04] MEDS ORDERED: LOPERAMIDE HCL 2 MG CAPSULE PO PRN (10:39)
[2023-01-04] MEDS ORDERED: DICYCLOMINE HCL 10 MG CAPSULE PO PRN (10:39)
[2023-01-04] MEDS ORDERED: guaiFENesin 600 MG TABLET.ER (FP) PO PRN (10:39)
[2023-01-04] MEDS ORDERED: BENZONATATE 200 MG CAPSULE PO PRN (10:39)
[2023-01-04] MEDS ORDERED: BISMUTH SUBSALICYLATE 524 MG/30 ML PO PRN (10:39)
[2023-01-04] MEDS ORDERED: AMMONIUM LACTATE 12% LOTION 225 GM BOTTLE TP PRN (10:39)
[2023-01-04] MEDS ORDERED: IBUPROFEN 600 MG TABLET (FP) PO PRN (10:39)
[2023-01-04] MEDS ORDERED: NICOTINE 10 MG CARTRIDGE (INHALER) IH PRN (10:39)
[2023-01-04] MEDS: chlordiazePOXIDE HCL 25 MG CAPSULE PO SCH ×3 (11:27→22:36)
[2023-01-04] MEDS ORDERED: chlordiazePOXIDE HCL 25 MG CAPSULE ONE (11:28)
[2023-01-04] MEDS: EMTRICITAB/RILPIVIRI/TENOF ALA (ODEFSEY) TABLET PO SCH (12:19)
[2023-01-04 15:06] LABS: POTASSIUM 3.7 mmol/L (3.5-5.1)
[2023-01-04 15:07] LABS: HEMATOCRIT 42.6 % (35.4-49); HEMOGLOBIN 14.6 GM/dL (11.7-16.9); MCH 28.8 pg (25.7-33.7); MCHC 34.3 g/dl (32.0-35.9); MEAN PLT VOLUME 7.5 fl (7.5-11.1); PLATELET COUNT 274 10^3/uL (134-434); RBC 5.07 M/mm3 (4.00-5.60); RDW 12.8 % (11.9-15.9); WHITE BLOOD COUNT 8.7 K/mm3 (4.0-10.0)
[2023-01-04 15:16] LABS: CALCIUM 9.3 mg/dL (8.5-10.1)
[2023-01-04 15:17] LABS: ALBUMIN 3.6 g/dl (3.4-5.0); BLOOD UREA NITROGEN 10.4 mg/dL (7-18)
[2023-01-04 15:19] LABS: BILIRUBIN,TOTAL 0.6 mg/dL (0.2-1)
[2023-01-04 15:20] LABS: CREATININE 1.3 mg/dL (0.55-1.3)
[2023-01-04 15:21] LABS: TOT PROT 6.9 g/dl (6.4-8.2)
[2023-01-04] MEDS: MELATONIN 5 MG TABLETS PO SCH (22:36)
[2023-01-04] MEDS: ZIPRASIDONE 40 MG CAPSULE PO SCH (22:36)
[2023-01-04] MEDS: THIAMINE HCL 100 MG TABLET (FP) PO SCH (22:36)
[2023-01-04] MEDS: traZODone HCL 100 MG TABLET (FP) PO SCH (22:36)
[2023-01-05] MEDS: chlordiazePOXIDE HCL 25 MG CAPSULE PO SCH ×4 (05:42→22:05)
[2023-01-05] MEDS: EMTRICITAB/RILPIVIRI/TENOF ALA (ODEFSEY) TABLET PO SCH (07:25)
[2023-01-05] MEDS: ZIPRASIDONE 40 MG CAPSULE PO SCH ×3 (08:52→22:06)
[2023-01-05] MEDS: hydrOXYzine PAMOATE 25 MG CAPSULE (FP) PO PRN (10:23)
[2023-01-05] MEDS: PRENATAL VITAMINS W/ FOLIC ACID TABLET (FP) PO SCH (10:23)
[2023-01-05] MEDS: LACTULOSE 20 GM/30 ML UDC (FOR ORAL USE ONLY) PO SCH ×2 (13:36→22:05)
[2023-01-05] MEDS: THIAMINE HCL 100 MG TABLET (FP) PO SCH (22:06)
[2023-01-05] MEDS: traZODone HCL 100 MG TABLET (FP) PO SCH (22:06)
[2023-01-05] MEDS: MELATONIN 5 MG TABLETS PO SCH (22:06)
[2023-01-06] MEDS: chlordiazePOXIDE HCL 25 MG CAPSULE PO SCH ×2 (05:39→10:16)
[2023-01-06] MEDS: LACTULOSE 20 GM/30 ML UDC (FOR ORAL USE ONLY) PO SCH (05:39)
[2023-01-06] MEDS: EMTRICITAB/RILPIVIRI/TENOF ALA (ODEFSEY) TABLET PO SCH ×2 (07:03→07:04)
[2023-01-06 10:00] VITALS: BP 100/66; PULSE 65; RESP 20; TEMP 97.8
[2023-01-06] MEDS: hydrOXYzine PAMOATE 25 MG CAPSULE (FP) PO PRN (10:15)
[2023-01-06] MEDS: ZIPRASIDONE 40 MG CAPSULE PO SCH (10:16)
[2023-01-06] MEDS: PRENATAL VITAMINS W/ FOLIC ACID TABLET (FP) PO SCH (10:16)
[2023-01-07] MEDS ORDERED: chlordiazePOXIDE HCL 10 MG CAPSULE PO SCH (05:00)
[2023-01-08] MEDS ORDERED: chlordiazePOXIDE HCL 10 MG CAPSULE PO SCH (05:00)
[2023-01-09] MEDS ORDERED: chlordiazePOXIDE HCL 10 MG CAPSULE PO ONE (05:00)
== END 2023-01-06 11:30 | disposition left against medical advice (07) | DRG 894 ==
LOC: YASAS 08:36 → Y3N 10:58
PROVIDERS: ADMIT Allergy & Immunology; ATTEND Surgery
PROC: HZ2ZZZZ Detoxification Services for Substance Abuse Treatment (ICD-10-PCS; principal; 2023-01-04)
DX: F10.230 Alcohol dependence with withdrawal, uncomplicated (principal); F19.980 Other psychoactive substance use, unspecified with psychoactive substance-induced anxiety disorder; F41.9 Anxiety disorder, unspecified; Z21 Asymptomatic human immunodeficiency virus [HIV] infection status; G47.00 Insomnia, unspecified; Z88.6 Allergy status to analgesic agent; Z86.69 Personal history of other diseases of the nervous system and sense organs; Z86.11 Personal history of tuberculosis; Z86.19 Personal history of other infectious and parasitic diseases; Z56.0 Unemployment, unspecified
CPT/HCPCS: 36415; 80053; 82140; 85027; 86593; 86780; 87635

== ENCOUNTER 2023-02-20 11:01 | Inpatient (IN) | payer OTHER ==
[2023-02-20 12:01] VITALS: BMI 31.4
[2023-02-20] MEDS ORDERED: IBUPROFEN 600 MG TABLET (FP) PO PRN (12:33)
[2023-02-20] MEDS ORDERED: MAG HYDROX/AL HYDROX/SIMETH 30 ML UNIT-DOSE CUP PO PRN (12:33)
[2023-02-20] MEDS ORDERED: BENZONATATE 200 MG CAPSULE PO PRN (12:33)
[2023-02-20] MEDS ORDERED: DICYCLOMINE HCL 10 MG CAPSULE PO PRN (12:33)
[2023-02-20] MEDS ORDERED: MAGNESIUM HYDROX 2400MG/30ML ORAL SUSPENSION 30 ML CUP PO PRN (12:33)
[2023-02-20] MEDS ORDERED: NALOXONE HCL (KLOXXADO) 8 MG SPRAY NS PRN (12:33)
[2023-02-20] MEDS ORDERED: BISMUTH SUBSALICYLATE 524 MG/30 ML PO PRN (12:33)
[2023-02-20] MEDS ORDERED: IBUPROFEN 400 MG TABLET (FP) PO PRN (12:33)
[2023-02-20] MEDS ORDERED: NALOXONE HCL 0.4 MG/ML VIAL IM PRN (12:33)
[2023-02-20] MEDS ORDERED: guaiFENesin 600 MG TABLET.ER (FP) PO PRN (12:33)
[2023-02-20] MEDS ORDERED: POLYETHYLENE GLYCOL (HEALTHYLAX) 3350 17 GM PACKET PO PRN (12:33)
[2023-02-20] MEDS ORDERED: ONDANSETRON *ODT* 4 MG TABLET SL PRN (12:33)
[2023-02-20] MEDS ORDERED: BENZOCAINE/MENTHOL (CHLORASEPTIC ) LOZENGE MM PRN (12:33)
[2023-02-20] MEDS ORDERED: LOPERAMIDE HCL 2 MG CAPSULE PO PRN (12:33)
[2023-02-20] MEDS ORDERED: chlordiazePOXIDE HCL 25 MG CAPSULE PO PRN (12:33)
[2023-02-20] MEDS: chlordiazePOXIDE HCL 25 MG CAPSULE PO SCH ×2 (17:14→22:39)
[2023-02-20] MEDS ORDERED: traZODone HCL 50 MG TABLET (FP) PO SCH (22:00)
[2023-02-20] MEDS: MELATONIN 5 MG TABLETS PO SCH (22:40)
[2023-02-20] MEDS: THIAMINE HCL 100 MG TABLET (FP) PO SCH (22:40)
[2023-02-21] MEDS: chlordiazePOXIDE HCL 25 MG CAPSULE PO SCH ×4 (05:18→22:43)
[2023-02-21] MEDS: PRENATAL VITAMINS W/ FOLIC ACID TABLET (FP) PO SCH (10:20)
[2023-02-21] MEDS: EMTRICITAB/RILPIVIRI/TENOF ALA (ODEFSEY) TABLET PO SCH (11:01)
[2023-02-21] MEDS: ZIPRASIDONE 40 MG CAPSULE PO SCH ×2 (12:42→22:43)
[2023-02-21] MEDS: hydrOXYzine PAMOATE 25 MG CAPSULE (FP) PO PRN (12:45)
[2023-02-21 16:06] LABS: HEMATOCRIT 41.2 % (35.4-49); HEMOGLOBIN 14.3 GM/dL (11.7-16.9); MCH 28.7 pg (25.7-33.7); MCHC 34.7 g/dl (32.0-35.9); MEAN CELL VOLUME 82.6 fl (80-96); MEAN PLT VOLUME 7.4 fl (7.5-11.1); PLATELET COUNT 272 10^3/uL (134-434); POTASSIUM 4.7 mmol/L (3.5-5.1); RBC 4.99 M/mm3 (4.00-5.60); RDW 12.6 % (11.9-15.9); WHITE BLOOD COUNT 4.6 K/mm3 (4.0-10.0)
[2023-02-21 16:08] LABS: CALCIUM 8.6 mg/dL (8.5-10.1)
[2023-02-21 16:09] LABS: BLOOD UREA NITROGEN 11.5 mg/dL (7-18)
[2023-02-21 16:12] LABS: CREATININE 1.2 mg/dL (0.55-1.3)
[2023-02-21 16:13] LABS: BILIRUBIN,TOTAL 0.2 mg/dL (0.2-1); TOT PROT 5.8 g/dl (6.4-8.2)
[2023-02-21] MEDS: traZODone HCL 100 MG TABLET (FP) PO SCH (22:42)
[2023-02-21] MEDS: THIAMINE HCL 100 MG TABLET (FP) PO SCH (22:43)
[2023-02-21] MEDS: MELATONIN 5 MG TABLETS PO SCH (22:43)
[2023-02-22] MEDS: chlordiazePOXIDE HCL 25 MG CAPSULE PO SCH ×4 (05:24→22:18)
[2023-02-22] MEDS: PRENATAL VITAMINS W/ FOLIC ACID TABLET (FP) PO SCH (10:18)
[2023-02-22] MEDS: METHOCARBAMOL 500 MG TABLET PO PRN (10:19)
[2023-02-22] MEDS: ZIPRASIDONE 40 MG CAPSULE PO SCH ×2 (10:19→22:17)
[2023-02-22] MEDS: EMTRICITAB/RILPIVIRI/TENOF ALA (ODEFSEY) TABLET PO SCH ×2 (13:00)
[2023-02-22] MEDS: THIAMINE HCL 100 MG TABLET (FP) PO SCH (22:17)
[2023-02-22] MEDS: traZODone HCL 100 MG TABLET (FP) PO SCH (22:17)
[2023-02-22] MEDS: MELATONIN 5 MG TABLETS PO SCH (22:21)
[2023-02-23] MEDS ORDERED: chlordiazePOXIDE HCL 10 MG CAPSULE PO PRN
[2023-02-23] MEDS: chlordiazePOXIDE HCL 10 MG CAPSULE PO SCH ×5 (05:16→22:16)
[2023-02-23] MEDS: ZIPRASIDONE 40 MG CAPSULE PO SCH ×3 (10:35→22:16)
[2023-02-23] MEDS: PRENATAL VITAMINS W/ FOLIC ACID TABLET (FP) PO SCH ×2 (10:35)
[2023-02-23] MEDS: EMTRICITAB/RILPIVIRI/TENOF ALA (ODEFSEY) TABLET PO SCH (10:35)
[2023-02-23] MEDS: hydrOXYzine PAMOATE 25 MG CAPSULE (FP) PO PRN (10:37)
[2023-02-23] MEDS: METHOCARBAMOL 500 MG TABLET PO PRN (10:37)
[2023-02-23] MEDS: LIDOCAINE 5% TOPICAL PATCH TP SCH (17:18)
[2023-02-23] MEDS ORDERED: LIDOCAINE PATCH REMOVAL MC SCH (22:00)
[2023-02-23] MEDS: traZODone HCL 100 MG TABLET (FP) PO SCH (22:15)
[2023-02-23] MEDS: THIAMINE HCL 100 MG TABLET (FP) PO SCH (22:16)
[2023-02-23] MEDS: MELATONIN 5 MG TABLETS PO SCH (22:16)
[2023-02-23] MEDS: LIDOCAINE PATCH REMOVAL MC SCH (22:18)
[2023-02-24] MEDS: chlordiazePOXIDE HCL 10 MG CAPSULE PO SCH ×2 (05:38→17:17)
[2023-02-24] MEDS: PRENATAL VITAMINS W/ FOLIC ACID TABLET (FP) PO SCH (10:12)
[2023-02-24] MEDS: LIDOCAINE 5% TOPICAL PATCH TP SCH (10:12)
[2023-02-24] MEDS: ZIPRASIDONE 40 MG CAPSULE PO SCH ×2 (10:12→22:06)
[2023-02-24] MEDS: hydrOXYzine PAMOATE 25 MG CAPSULE (FP) PO PRN (10:13)
[2023-02-24] MEDS: EMTRICITAB/RILPIVIRI/TENOF ALA (ODEFSEY) TABLET PO SCH ×2 (11:49→12:02)
[2023-02-24] MEDS: MELATONIN 5 MG TABLETS PO SCH (22:06)
[2023-02-24] MEDS: THIAMINE HCL 100 MG TABLET (FP) PO SCH (22:06)
[2023-02-24] MEDS: traZODone HCL 100 MG TABLET (FP) PO SCH (22:06)
[2023-02-24] MEDS: LIDOCAINE PATCH REMOVAL MC SCH (22:55)
[2023-02-25] MEDS ORDERED: chlordiazePOXIDE HCL 10 MG CAPSULE PO ONE (05:00)
[2023-02-25 06:08] VITALS: RESP 16
[2023-02-25 08:34] VITALS: BP 101/64; PULSE 81; TEMP 97.3
== END 2023-02-25 08:57 | disposition home or self-care (01) | DRG 897 ==
LOC: YASAS 11:01 → Y6N 13:02
PROVIDERS: ADMIT Allergy & Immunology; ATTEND Allergy & Immunology
PROC: HZ2ZZZZ Detoxification Services for Substance Abuse Treatment (ICD-10-PCS; principal; 2023-02-20)
DX: F10.230 Alcohol dependence with withdrawal, uncomplicated (principal); F14.20 Cocaine dependence, uncomplicated; F19.282 Other psychoactive substance dependence with psychoactive substance-induced sleep disorder; F19.280 Other psychoactive substance dependence with psychoactive substance-induced anxiety disorder; F12.20 Cannabis dependence, uncomplicated; F31.9 Bipolar disorder, unspecified; Z21 Asymptomatic human immunodeficiency virus [HIV] infection status; Z86.11 Personal history of tuberculosis; Z86.19 Personal history of other infectious and parasitic diseases; Z88.8 Allergy status to other drugs, medicaments and biological substances
CPT/HCPCS: 36415; 80053; 85027; 86593; 86780; 87635

== ENCOUNTER 2024-03-30 09:26 | Inpatient (IN) | payer OTHER ==
[2024-03-30 09:47] VITALS: BMI 32.3
[2024-03-30] MEDS ORDERED: IBUPROFEN 400 MG TABLET (FP) PO PRN (10:32)
[2024-03-30] MEDS ORDERED: BENZOCAINE/MENTHOL (CHLORASEPTIC ) LOZENGE MM PRN (10:32)
[2024-03-30] MEDS ORDERED: POLYETHYLENE GLYCOL (HEALTHYLAX) 3350 17 GM PACKET PO PRN (10:32)
[2024-03-30] MEDS ORDERED: NALOXONE (NARCAN) HCL 4 MG/0.1 ML SPRAY NS PRN (10:32)
[2024-03-30] MEDS ORDERED: MAGNESIUM HYDROX 2400MG/30ML ORAL SUSPENSION 30 ML CUP PO PRN (10:32)
[2024-03-30] MEDS ORDERED: ONDANSETRON *ODT* 4 MG TABLET SL PRN (10:32)
[2024-03-30] MEDS ORDERED: DICYCLOMINE HCL 10 MG CAPSULE PO PRN (10:32)
[2024-03-30] MEDS ORDERED: guaiFENesin 600 MG TABLET.ER (FP) PO PRN (10:32)
[2024-03-30] MEDS ORDERED: hydrOXYzine PAMOATE 25 MG CAPSULE (FP) PO PRN (10:32)
[2024-03-30] MEDS ORDERED: BENZONATATE 200 MG CAPSULE PO PRN (10:32)
[2024-03-30] MEDS ORDERED: BISMUTH SUBSALICYLATE 524 MG/30 ML PO PRN (10:32)
[2024-03-30] MEDS ORDERED: LOPERAMIDE HCL 2 MG CAPSULE PO PRN (10:32)
[2024-03-30] MEDS ORDERED: NALOXONE HCL 0.4 MG/ML VIAL IM PRN (10:32)
[2024-03-30] MEDS ORDERED: diazePAM 5 MG TABLET PO PRN (10:48)
[2024-03-30] MEDS ORDERED: chlordiazePOXIDE HCL 25 MG CAPSULE PO PRN (11:17)
[2024-03-30] MEDS: chlordiazePOXIDE HCL 25 MG CAPSULE PO SCH (16:53)
[2024-03-30] MEDS: METHOCARBAMOL 500 MG TABLET PO PRN (16:58)
[2024-03-30] MEDS: IBUPROFEN 600 MG TABLET (FP) PO PRN (16:58)
[2024-03-30] MEDS ORDERED: diazePAM 5 MG TABLET PO SCH (17:00)
[2024-03-30] MEDS: MAG HYDROX/AL HYDROX/SIMETH 30 ML UNIT-DOSE CUP PO PRN (19:06)
[2024-03-30] MEDS: traZODone HCL 50 MG TABLET (FP) PO SCH (21:48)
[2024-03-30] MEDS: ZIPRASIDONE 40 MG CAPSULE PO SCH (21:48)
[2024-03-30] MEDS: MELATONIN 5 MG TABLETS PO SCH (21:57)
[2024-03-30] MEDS: THIAMINE 100 MG TABLET PO SCH (21:57)
[2024-03-31] MEDS: PRENATAL VITAMINS W/ FOLIC ACID TABLET (FP) PO SCH (10:13)
[2024-03-31] MEDS: hydrOXYzine PAMOATE 50 MG CAPSULE (FP) PO ONE (10:41)
[2024-03-31 13:41] LABS: HEMATOCRIT 45.3 % (35.4-49); HEMOGLOBIN 15.2 GM/dL (11.7-16.9); MCH 28.6 pg (25.7-33.7); MCHC 33.6 g/dl (32.0-35.9); MEAN CELL VOLUME 85.2 fl (80-96); MEAN PLT VOLUME 8.2 fl (7.5-11.1); PLATELET COUNT 264 10^3/uL (134-434); RBC 5.31 M/mm3 (4.00-5.60); RDW 13.6 % (11.9-15.9); WHITE BLOOD COUNT 4.4 K/mm3 (4.0-10.0)
[2024-03-31 14:02] LABS: POTASSIUM 4.3 mmol/L (3.5-5.1)
[2024-03-31 14:22] LABS: CALCIUM 9.4 mg/dL (8.5-10.1)
[2024-03-31 14:23] LABS: ALBUMIN 3.3 g/dl (3.4-5.0); BLOOD UREA NITROGEN 11.4 mg/dL (7-18)
[2024-03-31 14:26] LABS: CREATININE 1.2 mg/dL (0.55-1.3)
[2024-03-31 14:27] LABS: TOT PROT 6.3 g/dl (6.4-8.2)
[2024-03-31 14:29] LABS: BILIRUBIN,TOTAL 0.3 mg/dL (0.2-1)
[2024-04-01] MEDS: chlordiazePOXIDE HCL 25 MG CAPSULE PO SCH (05:45)
[2024-04-01] MEDS ORDERED: diazePAM 5 MG TABLET PO SCH (06:00)
[2024-04-01] MEDS: hydrOXYzine PAMOATE 50 MG CAPSULE (FP) PO PRN (10:36)
[2024-04-02] MEDS ORDERED: chlordiazePOXIDE HCL 10 MG CAPSULE PO PRN
[2024-04-02] MEDS: chlordiazePOXIDE HCL 10 MG CAPSULE PO SCH (05:08)
[2024-04-02] MEDS ORDERED: diazePAM 5 MG TABLET PO SCH (06:00)
[2024-04-03] MEDS: chlordiazePOXIDE HCL 10 MG CAPSULE PO SCH (05:09)
[2024-04-03] MEDS ORDERED: diazePAM 5 MG TABLET PO ONE (06:00)
[2024-04-03 20:27] VITALS: TEMP 98.2
[2024-04-04] MEDS: chlordiazePOXIDE HCL 10 MG CAPSULE PO ONE (05:13)
[2024-04-04 05:58] VITALS: BP 104/66; PULSE 71; RESP 16
== END 2024-04-04 09:11 | disposition home or self-care (01) | DRG 897 ==
LOC: YASAS 09:26 → Y6N 10:45 → Y3N 11:03
PROVIDERS: ADMIT Allergy & Immunology; ATTEND Family Medicine
PROC: HZ2ZZZZ Detoxification Services for Substance Abuse Treatment (ICD-10-PCS; principal; 2024-03-30)
DX: F10.230 Alcohol dependence with withdrawal, uncomplicated (principal); F14.20 Cocaine dependence, uncomplicated; F19.282 Other psychoactive substance dependence with psychoactive substance-induced sleep disorder; F19.280 Other psychoactive substance dependence with psychoactive substance-induced anxiety disorder; F12.20 Cannabis dependence, uncomplicated; F19.24 Other psychoactive substance dependence with psychoactive substance-induced mood disorder; F31.9 Bipolar disorder, unspecified; F43.10 Post-traumatic stress disorder, unspecified; F41.9 Anxiety disorder, unspecified; Z21 Asymptomatic human immunodeficiency virus [HIV] infection status; G40.909 Epilepsy, unspecified, not intractable, without status epilepticus; Z62.810 Personal history of physical and sexual abuse in childhood; Z63.8 Other specified problems related to primary support group; Z87.828 Personal history of other (healed) physical injury and trauma; Z86.11 Personal history of tuberculosis; Z88.8 Allergy status to other drugs, medicaments and biological substances
CPT/HCPCS: 36415; 80053; 80305; 80307; 82140; 85027; 86593; 86780; 93005; 93010

== ENCOUNTER 2024-05-18 09:53 | Inpatient (IN) | payer OTHER ==
[2024-05-18 10:59] VITALS: BMI 31.6
[2024-05-18] MEDS ORDERED: METHOCARBAMOL 500 MG TABLET PO PRN (11:08)
[2024-05-18] MEDS ORDERED: MAGNESIUM HYDROX 2400MG/30ML ORAL SUSPENSION 30 ML CUP PO PRN (11:08)
[2024-05-18] MEDS ORDERED: BISMUTH SUBSALICYLATE 262 MG/15 ML BTL PO PRN (11:08)
[2024-05-18] MEDS ORDERED: POLYETHYLENE GLYCOL (HEALTHYLAX) 3350 17 GM PACKET PO PRN (11:08)
[2024-05-18] MEDS ORDERED: IBUPROFEN 600 MG TABLET (FP) PO PRN (11:08)
[2024-05-18] MEDS ORDERED: ACETAMINOPHEN 325 MG TABLET (FP) PO PRN (11:08)
[2024-05-18] MEDS ORDERED: ONDANSETRON *ODT* 4 MG TABLET SL PRN (11:08)
[2024-05-18] MEDS ORDERED: LOPERAMIDE HCL 2 MG CAPSULE PO PRN (11:08)
[2024-05-18] MEDS ORDERED: BENZONATATE 200 MG CAPSULE PO PRN (11:08)
[2024-05-18] MEDS ORDERED: chlordiazePOXIDE HCL 25 MG CAPSULE PO PRN (11:08)
[2024-05-18] MEDS ORDERED: IBUPROFEN 400 MG TABLET (FP) PO PRN (11:08)
[2024-05-18] MEDS ORDERED: NALOXONE (NARCAN) HCL 4 MG/0.1 ML SPRAY NS PRN (11:08)
[2024-05-18] MEDS ORDERED: BENZOCAINE/MENTHOL (CHLORASEPTIC ) LOZENGE MM PRN (11:08)
[2024-05-18] MEDS: PRENATAL VITAMINS W/ FOLIC ACID TABLET (FP) PO SCH (12:30)
[2024-05-18] MEDS ORDERED: chlordiazePOXIDE HCL 25 MG CAPSULE ONE (12:33)
[2024-05-18] MEDS: chlordiazePOXIDE HCL 25 MG CAPSULE PO SCH (12:38)
[2024-05-18] MEDS: guaiFENesin 600 MG TABLET.ER (FP) PO PRN (17:32)
[2024-05-18] MEDS: MAG HYDROX/AL HYDROX/SIMETH 30 ML UNIT-DOSE CUP PO PRN (17:35)
[2024-05-18] MEDS: DICYCLOMINE HCL 10 MG CAPSULE PO PRN (22:27)
[2024-05-18] MEDS: THIAMINE 100 MG TABLET PO SCH (22:27)
[2024-05-18] MEDS: P-EPHED 60MG/TRIPROLIDI 2.5MG TABLET PO PRN (22:27)
[2024-05-18] MEDS: traZODone HCL 100 MG TABLET (FP) PO SCH (22:28)
[2024-05-18] MEDS: MELATONIN 5 MG TABLETS PO SCH (22:30)
[2024-05-18] MEDS: hydrOXYzine PAMOATE 25 MG CAPSULE (FP) PO PRN (22:31)
[2024-05-19 11:53] LABS: HEMATOCRIT 42.9 % (35.4-49); HEMOGLOBIN 14.5 GM/dL (11.7-16.9); MCH 29.2 pg (25.7-33.7); MCHC 33.8 g/dl (32.0-35.9); MEAN CELL VOLUME 86.4 fl (80-96); MEAN PLT VOLUME 7.2 fl (7.5-11.1); PLATELET COUNT 324 10^3/uL (134-434); RBC 4.96 M/mm3 (4.00-5.60); RDW 13.3 % (11.9-15.9); WHITE BLOOD COUNT 4.9 K/mm3 (4.0-10.0)
[2024-05-19 12:18] LABS: ALBUMIN 3.2 g/dl (3.4-5.0); BLOOD UREA NITROGEN 10.8 mg/dL (7-18); CALCIUM 9.2 mg/dL (8.5-10.1)
[2024-05-19 12:22] LABS: CREATININE 1.2 mg/dL (0.55-1.3)
[2024-05-19 12:23] LABS: BILIRUBIN,TOTAL 0.7 mg/dL (0.2-1); TOT PROT 5.8 g/dl (6.4-8.2)
[2024-05-19 13:07] LABS: HIV INTERPRETATION NEGATIVE (NEGATIVE)
[2024-05-19] MEDS: ZIPRASIDONE 40 MG CAPSULE PO ONE (14:43)
[2024-05-19] MEDS: traZODone HCL 50 MG TABLET (FP) PO SCH (22:26)
[2024-05-19] MEDS: ZIPRASIDONE 40 MG CAPSULE PO SCH (22:26)
[2024-05-20] MEDS: chlordiazePOXIDE HCL 25 MG CAPSULE PO SCH (05:23)
[2024-05-21] MEDS ORDERED: chlordiazePOXIDE HCL 10 MG CAPSULE PO PRN
[2024-05-21] MEDS: chlordiazePOXIDE HCL 10 MG CAPSULE PO SCH (05:29)
[2024-05-21 09:30] VITALS: RESP 18
[2024-05-21] MEDS ORDERED: guaiFENesin 200 MG/10 ML 10 ML UNIT-DOSE CUPS PO PRN (17:28)
[2024-05-21] MEDS: BENZONATATE 200 MG CAPSULE PO PRN (19:09)
[2024-05-21 20:35] VITALS: BP 108/65; PULSE 78; TEMP 97.3
[2024-05-22] MEDS: chlordiazePOXIDE HCL 10 MG CAPSULE PO SCH (05:25)
[2024-05-22] MEDS: NALOXONE (NYS OPIOID OVERDOSE PROGRAM) 4 MG/0.1 ML SPRAY NS SCH (08:45)
[2024-05-22] MEDS: chlordiazePOXIDE HCL 10 MG CAPSULE PO ONE (09:49)
[2024-05-23] MEDS ORDERED: chlordiazePOXIDE HCL 10 MG CAPSULE PO ONE (05:00)
== END 2024-05-22 10:26 | disposition home or self-care (01) | DRG 897 ==
LOC: YASAS 09:53 → Y3N 13:06
PROVIDERS: ADMIT Allergy & Immunology; ATTEND Surgery
PROC: HZ2ZZZZ Detoxification Services for Substance Abuse Treatment (ICD-10-PCS; principal; 2024-05-18)
DX: F10.230 Alcohol dependence with withdrawal, uncomplicated (principal); F14.20 Cocaine dependence, uncomplicated; F12.20 Cannabis dependence, uncomplicated; F19.24 Other psychoactive substance dependence with psychoactive substance-induced mood disorder; F31.9 Bipolar disorder, unspecified; F43.10 Post-traumatic stress disorder, unspecified; Z21 Asymptomatic human immunodeficiency virus [HIV] infection status; Z86.11 Personal history of tuberculosis; Z86.69 Personal history of other diseases of the nervous system and sense organs; Z62.810 Personal history of physical and sexual abuse in childhood; Z63.8 Other specified problems related to primary support group
CPT/HCPCS: 36415; 80053; 80305; 80307; 85027; 86593; 86780; 87389; 93005; 93010

== ENCOUNTER 2025-03-23 16:36 | Inpatient (IN) | payer OTHER ==
[2025-03-23 17:07] VITALS: BMI 31.3
[2025-03-23] MEDS ORDERED: BENZONATATE 200 MG CAPSULE PO PRN (17:51)
[2025-03-23] MEDS ORDERED: hydrOXYzine PAMOATE 25 MG CAPSULE (FP) PO PRN (17:51)
[2025-03-23] MEDS ORDERED: ONDANSETRON *ODT* 4 MG TABLET SL PRN (17:51)
[2025-03-23] MEDS ORDERED: NALOXONE (NARCAN) HCL 4 MG/0.1 ML SPRAY NS PRN (17:51)
[2025-03-23] MEDS ORDERED: IBUPROFEN 600 MG TABLET (FP) PO PRN (17:51)
[2025-03-23] MEDS ORDERED: MAGNESIUM HYDROX 2400MG/30ML ORAL SUSPENSION 30 ML CUP PO PRN (17:51)
[2025-03-23] MEDS ORDERED: BISMUTH SUBSALICYLATE 524 MG/30 ML PO PRN (17:51)
[2025-03-23] MEDS ORDERED: LOPERAMIDE HCL 2 MG CAPSULE PO PRN (17:51)
[2025-03-23] MEDS ORDERED: guaiFENesin 600 MG TABLET.ER (FP) PO PRN (17:51)
[2025-03-23] MEDS ORDERED: METHOCARBAMOL 500 MG TABLET PO PRN (17:51)
[2025-03-23] MEDS ORDERED: MAG HYDROX/AL HYDROX/SIMETH 30 ML UNIT-DOSE CUP PO PRN (17:51)
[2025-03-23] MEDS ORDERED: BENZOCAINE/MENTHOL (CHLORASEPTIC ) LOZENGE MM PRN (17:51)
[2025-03-23] MEDS ORDERED: IBUPROFEN 400 MG TABLET (FP) PO PRN (17:51)
[2025-03-23] MEDS ORDERED: POLYETHYLENE GLYCOL (HEALTHYLAX) 3350 17 GM PACKET PO PRN (17:51)
[2025-03-23] MEDS: THIAMINE 100 MG TABLET PO SCH (22:24)
[2025-03-23] MEDS: MELATONIN 5 MG TABLETS PO SCH (22:24)
[2025-03-24] MEDS: PRENATAL VITAMINS W/ FOLIC ACID TABLET (FP) PO SCH (10:18)
[2025-03-24 10:38] LABS: MCHC 33.3 g/dl (32.3-36.5); MEAN CELL VOLUME 84.6 fl (79.0-92.2); MEAN PLT VOLUME 9.2 fl (9.4-12.4); RDW 12.9 % (12.2-16.1)
[2025-03-24 10:56] LABS: GLUCOSE,RANDOM 120 mg/dL (74-106)
[2025-03-24 10:57] LABS: TOT PROT 6.5 g/dl (6.4-8.2)
[2025-03-24 10:58] LABS: CO2 24 mmol/L (21-32)
[2025-03-24 10:59] LABS: ALK PHOS 59 U/L (40-150)
[2025-03-24 11:02] LABS: CREATININE 1.06 mg/dL (0.55-1.3); SGOT/AST 21 U/L (5-34); SGPT/ALT 17 U/L (0-55)
[2025-03-24] MEDS: hydrOXYzine PAMOATE 25 MG CAPSULE (FP) PO PRN (14:01)
[2025-03-24] MEDS: ZIPRASIDONE 40 MG CAPSULE PO SCH (14:02)
[2025-03-24] MEDS: traZODone HCL 50 MG TABLET (FP) PO SCH (22:22)
[2025-03-25] MEDS: DICYCLOMINE HCL 10 MG CAPSULE PO PRN (16:26)
[2025-03-26 09:56] VITALS: RESP 16
[2025-03-27 06:00] VITALS: BP 92/60; PULSE 63; TEMP 98
== END 2025-03-27 08:36 | disposition home or self-care (01) | DRG 897 ==
LOC: YASAS 16:36 → Y3N 18:46
PROVIDERS: ADMIT Neuromusculoskeletal Medicine & OMM; ATTEND Student in an Organized Health Care Education/Training Program
PROC: HZ2ZZZZ Detoxification Services for Substance Abuse Treatment (ICD-10-PCS; principal; 2025-03-23)
DX: F10.230 Alcohol dependence with withdrawal, uncomplicated (principal); F14.20 Cocaine dependence, uncomplicated; F19.282 Other psychoactive substance dependence with psychoactive substance-induced sleep disorder; F19.280 Other psychoactive substance dependence with psychoactive substance-induced anxiety disorder; F31.9 Bipolar disorder, unspecified; F43.10 Post-traumatic stress disorder, unspecified; F41.9 Anxiety disorder, unspecified; G47.00 Insomnia, unspecified; Z86.19 Personal history of other infectious and parasitic diseases; Z20.1 Contact with and (suspected) exposure to tuberculosis; Z88.8 Allergy status to other drugs, medicaments and biological substances
CPT/HCPCS: 36415; 80053; 80307; 85027; 86780